=== PATIENT | female | born 1940 | race Caucasian/White ===

== ENCOUNTER 2018-12-16 10:20 | Inpatient (IN) ==
[2018-12-16] MEDS ORDERED: DUONEB (A & A) INH ONE (10:31)
[2018-12-16 11:04] LABS: BASO# 0.02 X1000 (0.0-0.2); BASO% 0.1 % (0.0-0.8); EOS# 0.06 X1000 (0.0-0.7); EOS% 0.4 % (0.0-10.0); HEMATOCRIT 35.7 % (37.0-47.0); HEMOGLOBIN 10.9 g/dL (12.0-16.0); IMM GRAN# 0.07 X1000 (0.0-0.04); IMM GRAN% 0.5 % (0.0-0.5); LYMPH# 0.99 X1000 (1.2-3.4); LYMPH% 6.9 % (20.5-51.1); MCH 31.3 PG (27-31); MCHC 30.5 g/dL (33-37); MCV 102.6 FL (81-99); MONO# 2.35 X1000 (0.11-0.59); MONO% 16.3 % (1.7-9.3); MPV 8.9 FL (7.4-10.4); NEUT# 10.92 X1000 (1.4-6.5); NEUT% 75.8 % (42.2-75.2); PLT 229 X1000 (130-400); RBC 3.48 XMIL (4.2-5.4); RDW 12.5 % (11.5-14.5); WBC 14.41 X1000 (4.8-10.8)
--- NOTE | 2018-12-16 11:17 | Diag Imaging Result Doc PS360 ---
EXAM: CHEST-1 VIEW HISTORY: sob TECHNIQUE: Chest single view COMPARISON: 12/06/2017 FINDINGS: Poor inspiratory effort. There are small patchy infiltrates bilaterally. No cardiomegaly. No pleural effusions identified. IMPRESSION: Small bilateral patchy infiltrates. Follow-up PA and lateral recommended. Electronically signed by Harjinder Meade 12/16/2018 11:14 AM
[2018-12-16 11:27] LABS: ALB/GLOB RATIO 1.2; ALBUMIN 3.8 g/dL (3.5-5.0); CALCIUM 9.1 mg/dL (8.8-10.2); CREATININE 1.3 mg/dL (0.5-0.9); TOTAL BILIRUBIN 0.53 mg/dL (0.20-1.00); TOTAL PROTEIN 6.9 g/dL (6.3-8.3)
[2018-12-16 11:44] LABS: URINE SOURCE CATH
[2018-12-16 11:53] LABS: BILIRUBIN URINE NEGATIVE (NEGATIVE); BLOOD URINE SMALL (NEGATIVE); COLOR YELLOW; GLUCOSE URINE NEGATIVE (NEGATIVE); KETONE URINE NEGATIVE (NEGATIVE); LEUKOCYTES URINE NEGATIVE (NEGATIVE); NITRITE URINE NEGATIVE (NEGATIVE); PH URINE 5.5; PROTEIN URINE 30 mg/dL (NEGATIVE); SP GRAVITY URINE 1.009; TURBIDITY URINE CLEAR (CLEAR); UROBILINOGEN URINE NORMAL (NORMAL)
[2018-12-16 11:55] LABS: UR EPITHELIAL CELLS <10 /HPF (<10); URINE BACTERIA NEGATIVE /HPF; URINE RBC <10 /HPF (<10); URINE WBC <10 /HPF (<10)
[2018-12-16 12:11] LABS: ALLEN TEST NO; BE 16.4 mmoll (-3.0-3.0); BLOOD TYPE ARTERIAL; HCO3-(ACT) 37.6 mmoll (20.0-26.0); METHB 0.7 % (0.0-1.5); O2(CT) 13.6 mL/dL (15.0-23.0); O2HB 92.3 % (95.0-99.0); PO2(98.6) 71 mmHg (60-100); SAMPLE BLOOD; SAO2 94.2 % (95.0-100.0); THB 10.4 g/dL (11.5-17.4); pH(98.6) 7.34 (7.35-7.45)
[2018-12-16 12:13] LABS: MODALITY CANNULA
[2018-12-16 12:16] LABS: PCO2(98.6) 84 mmHg (35-45)
[2018-12-16] MEDS ORDERED: LASIX IV ONE ×2 (13:37→13:39)
--- NOTE | 2018-12-16 13:41 | PROVIDER DOCUMENTATION ---
This chart was entered by Donna Maguire Scribe, acting as scribe for Zurdo Lan MD. HPI-Respiratory General - General Stated Complaint: AMS Time Seen by Provider: 12/16/18 10:23 Source: patient, EMS Allergies/Adverse Reactions: Patient Allergies Allergy/AdvReac Type Severity Reaction Status Date / Time Penicillins Allergy Unknown Unknown Verified 12/05/17 09:16 Home Medications: Home Medication List Medication Instructions Recorded Confirmed Last Taken Type Aspirin 81 mg PO DAILY 11/21/14 12/07/17 10/16/17 History Ezetimibe [Zetia] 10 mg PO HS 11/21/14 12/07/17 10/16/17 History Omeprazole 40 mg PO DAILY@0600 11/21/14 12/07/17 10/16/17 History Propranolol HCl [Inderal LA] 160 mg PO BID 11/21/14 12/07/17 10/16/17 History Fluticasone/Vilanterol [Breo 1 puff INH BID 05/27/16 12/07/17 10/16/17 History Ellipta 100-25 Mcg INH] Gabapentin 300 mg PO TID 09/09/17 12/07/17 10/16/17 History Escitalopram Oxalate [Lexapro] 20 mg PO DAILY #60 tab 09/13/17 12/07/17 10/16/17 Rx Losartan/Hydrochlorothiazide 1 each PO DAILY 10/16/17 12/07/17 10/16/17 History [Losartan-Hctz 100-25 mg Tab] Aripiprazole 5 mg PO DAILY 12/05/17 12/07/17 Unknown History Lorazepam [Ativan] 1 mg PO TID PRN 12/05/17 12/07/17 Unknown History Oxycodone HCl/Acetaminophen 1 tab PO Q8H PRN PRN 12/07/17 12/07/17 Unknown History [Oxycodone-Acetaminophen 5-325] Prednisone 10 mg PO DAILY 12/07/17 12/07/17 Unknown History Acetaminophen [Tylenol] 650 mg PO Q6H PRN PRN tablet 12/13/17 Unknown Rx - History of Present Illness-Resp Nature of Presenting Problem: Patient is a 78 year old female who presents to the ED via EMS with shortness of breath. EMS states [facility] staff stated patient's O2 sat was 60% this morning prior to having a breathing treatment. Patient's O2 sat on EMS's arrival was 96% on 3 L of oxygen. Patient has a history of COPD and uses 3 L of oxygen 08/04. Denies pain. Quality of Pain: reports: none Severity in ED: reports: moderate Onset/Duration: reports: unsure Timing: reports: still present Current Respiratory Medication Therapy: Initiated see nurses note Associated Symptoms: reports: shortness of breath Similar Symptoms Previously?: No Recently seen or treated by another doctor?: No Review of Systems - Adult - REVIEW OF SYSTEMS - ADULT Constitutional: reports: no symptoms reported. denies: chills, fever, fatique Eyes: reports: no symptoms reported Ears, Nose, Mouth & Throat: reports: no symptoms reported Cardiovascular: reports: no symptoms reported. denies: chest pain, irregular heart rate, palpitations Respiratory: reports: shortness of breath. denies: cough, hemoptysis Gastrointestinal: reports: no symptoms reported Genitourinary: reports: no symptoms reported Musculoskeletal: reports: no symptoms reported Integumentary: reports: no symptoms reported Neurological: reports: no symptoms reported Psychiatric: reports: no symptoms reported Endocrine: reports: no symptoms reported Hematologic/Lymphatic: reports: no symptoms reported Allergic/Immunologic: reports: no symptoms reported All Other Systems: Reviewed and Negative Past History - Adult - PAST MEDICAL HISTORY-ADULT Review of Records: reports: Nursing Assessment Review, Medications Reviewed, Social history reviewed & non-contributory. Major Childhood Illnesses: reports: denies history Cardiovascular: reports: A-Fib, HTN Respiratory: reports: COPD Gastrointestinal: reports: denies history Obstetrical/Gynecological: reports: denies history Genitourinary: reports: denies history Musculoskeletal: reports: chronic pain Neurological: reports: denies history Psychiatric: reports: depression, psychiatric problems Endocrine/Immune: reports: denies history Other Conditions: reports: denies history - PRIOR SURGERIES/PROCEDURES Surgical/Procedure History: reports: appendectomy, cholecystectomy, hernia repair - PRIOR HOSPITALIZATIONS Prior Hospitalizations: reports: none - IMMUNIZATION STATUS Childhood Immunizations: See Nurse Assessment Flu Vaccine: See Nurse Assessment - FAMILY HISTORY Family History: reviewed, not pertinent - SOCIAL HISTORY Smoking: denies Substance Use: denies Living Situation: care facility (SNF) Physical Exam-General - PHYSICAL EXAM-ADULT Initial Vital Signs Reviewed: Yes - CONSTITUTIONAL General Appearance: alert, mild distress, slow to respond. negative: obtunded - HEAD, EARS, NOSE, MOUTH & THROAT HENMT: pharynx normal, hearing deficit, other (dry mucous membranes) - RESPIRATORY Respiratory: chest non-tender, respiratory distress (mild), decreased breath so unds (bilateral), rhonchi (bilateral), increased rate. negative: accessory muscle use - CARDIOVASCULAR Cardiovascular: normal peripheral pulses, regular rate, rhythm. negative: tachycardia, systolic murmur - GASTROINTESTINAL (ABDOMEN) Abdominal Exam: normal bowel sounds, non tender, soft. negative: guarding, rebound - SKIN Integumentary: normal color, normal turgor, warm/dry. negative: cyanosis, erythema, jaundice - PSYCHIATRIC Psych/Mental Status: other (slow to respond) Progress - PLAN OF CARE/RESULTS Progress/Plan/Lab Results: Vital Signs - 8 hr 12/16/18 10:37 12/16/18 10:41 12/16/18 11:18 Temperature 97.7 F Pulse Rate 84 84 Respiratory Rate 30 H 22 Blood Pressure 172/93 172/93 O2 Sat by Pulse Oximetry 89 L 96 96 12/16/18 11:32 12/16/18 11:40 12/16/18 11:50 Temperature Pulse Rate Respiratory Rate Blood Pressure O2 Sat by Pulse Oximetry 73 L 93 L 92 L 12/16/18 12:00 12/16/18 12:10 12/16/18 12:20 Temperature Pulse Rate Respiratory Rate Blood Pressure O2 Sat by Pulse Oximetry 92 L 92 L 93 L 12/16/18 12:30 12/16/18 12:40 12/16/18 12:41 Temperature Pulse Rate Respiratory Rate Blood Pressure 105/63 O2 Sat by Pulse Oximetry 97 98 95 12/16/18 12:50 Temperature Pulse Rate Respiratory Rate Blood Pressure O2 Sat by Pulse Oximetry 96 Laboratory Results - last 24 hr 12/16/18 12/16/18 12/16/18 10:55 10:55 10:55 WBC 14.41 H RBC 3.48 L Hgb 10.9 L Hct 35.7 L MCV 102.6 H MCH 31.3 H MCHC 30.5 L RDW Std Deviation 12.5 Plt Count 229 MPV 8.9 Immature Gran % (Auto) 0.5 Neut % (Auto) 75.8 H Lymph % (Auto) 6.9 L Murray % (Auto) 16.3 H Eos % (Auto) 0.4 Baso % (Auto) 0.1 Immature Gran # (Auto) 0.07 H Neut # (Auto) 10.92 H Lymph # (Auto) 0.99 L Murray # (Auto) 2.35 H Eos # (Auto) 0.06 Baso # (Auto) 0.02 Specimen Type Sample Site pH pCO2 pO2 HCO3 Base Excess Oxyhemoglobin ABG O2 Sat (Calculated) ABG O2 Saturation ABG Carboxyhemoglobin ABG Methemoglobin Benjamin Test A-a O2 Difference Total Hemoglobin Lactate Liter Flow Blood Gas Modality FiO2 % Sodium 142 Potassium 4.0 Chloride 92 L Carbon Dioxide 38 H Anion Gap 12 BUN 44 H Creatinine 1.3 H Estimated GFR/1.73 m2 40 BUN/Creatinine Ratio 34 Glucose 157 H Calculated Osmolality 298 Calcium 9.1 Total Bilirubin 0.53 AST 37 H ALT 36 Alkaline Phosphatase 60 Troponin T [id number] Pept 1224 H Total Protein 6.9 Albumin 3.8 Globulin 3.1 Albumin/Globulin Ratio 1.2 Plasma Lactate Urine Source Urine Color Urine Turbidity Urine pH Ur Specific [place] Urine Protein Ur Glucose (Stick) Ur Ketones (Stick) Urine Blood Urine Nitrite Urine Bilirubin Urobilinogen Dipstick Urine Leukocytes Urine WBC (Auto) Urine RBC (Auto) U Epithel Cells (Auto) Urine Bacteria (Auto) 12/16/18 12/16/18 12/16/18 10:55 10:55 11:30 WBC RBC Hgb Hct MCV MCH MCHC RDW Std Deviation Plt Count MPV Immature Gran % (Auto) Neut % (Auto) Lymph % (Auto) Murray % (Auto) Eos % (Auto) Baso % (Auto) Immature Gran # (Auto) Neut # (Auto) Lymph # (Auto) Murray # (Auto) Eos # (Auto) Baso # (Auto) Specimen Type Sample Site pH pCO2 pO2 HCO3 Base Excess Oxyhemoglobin ABG O2 Sat (Calculated) ABG O2 Saturation ABG Carboxyhemoglobin ABG Methemoglobin Benjamin Test A-a O2 Difference Total Hemoglobin Lactate Liter Flow Blood Gas Modality FiO2 % Sodium Potassium Chloride Carbon Dioxide Anion Gap BUN Creatinine Estimated GFR/1.73 m2 BUN/Creatinine Ratio Glucose Calculated Osmolality Calcium Total Bilirubin AST ALT Alkaline Phosphatase Troponin T < 0.010 [id number] Pept Total Protein Albumin Globulin Albumin/Globulin Ratio Plasma Lactate 1.1 Urine Source CATH Urine Color YELLOW Urine Turbidity CLEAR Urine pH 5.5 Ur Specific [place] 1.009 Urine Protein 30 A Ur Glucose (Stick) NEGATIVE Ur Ketones (Stick) NEGATIVE Urine Blood SMALL A Urine Nitrite NEGATIVE Urine Bilirubin NEGATIVE Urobilinogen Dipstick NORMAL Urine Leukocytes NEGATIVE Urine WBC (Auto) <10 Urine RBC (Auto) <10 U Epithel Cells (Auto) <10 Urine Bacteria (Auto) NEGATIVE 12/16/18 12:05 WBC RBC Hgb Hct MCV MCH MCHC RDW Std Deviation Plt Count MPV Immature Gran % (Auto) Neut % (Auto) Lymph % (Auto) Murray % (Auto) Eos % (Auto) Baso % (Auto) Immature Gran # (Auto) Neut # (Auto) Lymph # (Auto) Murray # (Auto) Eos # (Auto) Baso # (Auto) Specimen Type ARTERIAL Sample Site R BRACHIAL pH 7.34 L pCO2 84 H* pO2 71 HCO3 37.6 H Base Excess 16.4 H Oxyhemoglobin 92.3 L ABG O2 Sat (Calculated) 13.6 L ABG O2 Saturation 94.2 L ABG Carboxyhemoglobin 1.30 ABG Methemoglobin 0.7 Benjamin Test NO A-a O2 Difference 52.0 Total Hemoglobin 10.4 L Lactate 0.90 Liter Flow 3.0 Blood Gas Modality CANNULA FiO2 % 32.0 Sodium Potassium Chloride Carbon Dioxide Anion Gap BUN Creatinine Estimated GFR/1.73 m2 BUN/Creatinine Ratio Glucose Calculated Osmolality Calcium Total Bilirubin AST ALT Alkaline Phosphatase Troponin T [id number]-Pnulszepgqk Pept Total Protein Albumin Globulin Albumin/Globulin Ratio Plasma Lactate Urine Source Urine Color Urine Turbidity Urine pH Ur Specific [place] Urine Protein Ur Glucose (Stick) Ur Ketones (Stick) Urine Blood Urine Nitrite Urine Bilirubin Urobilinogen Dipstick Urine Leukocytes Urine WBC (Auto) Urine RBC (Auto) U Epithel Cells (Auto) Urine Bacteria (Auto) Orders Category Date Time Status CHEST-1 VIEW [RAD] Stat Exams 12/16/18 10:31 Completed ABG [RESP] Stat Lab 12/16/18 11:54 Stop Req CBC WITH DIFF [HEME] Stat Lab 12/16/18 10:55 Ordered COMPREHENSIVE METABOLIC PANEL [CHEM] Stat Lab 12/16/18 10:55 Ordered LACTATE, PLASMA [CHEM] Stat Lab 12/16/18 12:00 Ordered PRO B-NATRIURETIC PEPTIDE Stat Lab 12/16/18 10:55 Ordered TROPONIN T Stat Lab 12/16/18 10:55 Ordered URINALYSIS [URINALYSIS] Stat Lab 12/16/18 11:30 Ordered Albuterol 2.5MG/Ipratrop 0.5MG [Duoneb (A & A)] Med 12/16/18 10:31 Discontinue d 3 ml INH NOW ONE Furosemide [Lasix] Med 12/16/18 13:39 Discontinued 20 mg IV NOW ONE Furosemide [Lasix] Med 12/16/18 13:37 Discontinued 40 mg IV NOW ONE Aerosol Treatments Routine Oth 12/16/18 10:31 Completed Aerosol Treatments Stat Oth 12/16/18 10:31 Completed EKG [EKG] Stat Ther 12/16/18 10:24 Ordered Result Diagrams: 12/16/18 10:55 12/16/18 10:55 - XRAY 1 XRAY Study: Chest Impression: See EMR Report ( EXAM: CHEST-1 VIEW HISTORY: sob TECHNIQUE: Chest single view COMPARISON: 12/06/2017 FINDINGS: Poor inspiratory effort. There are small patchy infiltrates bilaterally. No cardiomegaly. No pleural effusions identified. IMPRESSION: Small bilateral patchy infiltrates. Follow- up PA and lateral recommended. Electronically signed by Harjinder Meade 12/16/2018 11:14 AM 12/16/18 111 Interpreting Physician: Harjinder Meade MD Dictated Date/Time: 12/16/18 1114 cc: Zurdo Lan MD; Gustavo Bull MD) - CONSULTS/PCP/HOSPITALIST Notification #1 *Consult/PCP/Hospitalist*: CARLY Bernstein for Hospitalist Time Discussed: 13:38 (Dr. Laurent accepted admit) Reason/Comments: Dr. Lan consulted with Day about patient. Consult Disposition: Admit Departure - Departure Date of Disposition Decision: 12/16/18 Time of Disposition Decision: 13:38 DIAGNOSIS: CHF (congestive heart failure), COPD exacerbation, Hypoxemia Disposition: ADMITTED INPATIENT 09 Certified Medical Emergency: Emergent Condition: Fair Referrals and Follow-Ups: Gustavo Bull MD [Primary Care Provider] - - Critical Care Note This patient required my direct & personal management of CC.: Yes Total Time (mins): 32 Critical Care Statement: This patient required my direct personal management to treat or rule out processes, the absence of which, could potentiallly result in sudden, clinically significant life or limb threatening deterioration. Attestation - Physician/ MONICA Attestation Patient care was provided by Advanced Practice Provider:: No The physician spent face to face time with patient:: Yes Advanced Practice Provider documentation review:: Supervising physician onsite a nd consulted in the evaluation and care of this patient. The physician did have a face to face encounter with the patient. This chart was documented by the indicated scribe, (Donna Maguire, Miller) and accurately reflects the services I performed and decisions made by me, Zurdo Lan MD, as attested by the provider's signature.
--- NOTE | 2018-12-16 15:36 | Diag Imaging Result Doc PS360 ---
CT THORAX W/O CONTRAST - 12/16/2018 INDICATION: SOB/PNA COMPARISON: 11/06/2017 FINDINGS: There is no adenopathy. There is severe COPD. There is some mild infiltrate in both lung bases notably the left lower lobe. The lingula and middle lobe are also involved. There is moderate bronchitis. Heart size is normal with no pericardial effusion. There are moderate degenerative changes of the spine. No acute or suspicious bony lesion. IMPRESSION: Bilateral multilobar pneumonia. Severe COPD with chronic bronchitis. This exam was performed using automated exposure control, adjustment of mA or kV according to patient size, and/or use of iterative reconstruction technique Electronically signed by Ad Bhatt 12/16/2018 3:33 PM
[2018-12-16] MEDS ORDERED: VANCOMYCIN IV PER PHARMACY MISC SCH (15:42)
[2018-12-16] MEDS ORDERED: SOLU-MEDROL IV SCH (15:42)
[2018-12-16] MEDS ORDERED: ZOFRAN IV PRN (15:42)
[2018-12-16] MEDS ORDERED: DUONEB (A & A) INH PRN (15:42)
[2018-12-16] MEDS: DUONEB (A & A) INH SCH ×3 (16:07→23:10)
[2018-12-16] MEDS ORDERED: VANCOMYCIN 1,600 MG in NS 500 ML IV ONE (17:00)
[2018-12-16] MEDS: LEVAQUIN 500 MG/D5W 500 MG/100 ML IVPB IV SCH (17:10)
[2018-12-16 17:37] LABS: ALLEN TEST YES; BE 19.5 mmoll (-3.0-3.0); BLOOD TYPE ARTERIAL; O2(CT) 14.3 mL/dL (15.0-23.0); O2HB 92.3 % (95.0-99.0); PO2(98.6) 65 mmHg (60-100); SAMPLE BLOOD; SAO2 94.2 % (95.0-100.0); SRATE 16 BPM; pH(98.6) 7.42 (7.35-7.45)
[2018-12-16 17:39] LABS: MODALITY BI PAP; PCO2(98.6) 73 mmHg (35-45)
--- NOTE | 2018-12-16 18:37 | HISTORY AND PHYSICAL ---
PRIMARY CARE PROVIDER: None. Patient is from [facility]. CHIEF COMPLAINT: Per EMS records, altered mental status, level II per [facility]. HISTORY OF PRESENT ILLNESS: Ms. Nuñez is a 78-year-old female who carries a past medical history of COPD, hypertension, adult failure to thrive, GERD, who was brought to the ED by EMS for altered mental status. Per [facility] reports, O2 sats were in the 60s. EMS report they were 96% on nasal cannula. The patient stated she felt short of breath and felt like she was going to . Workup in the ED revealed a CO2 of 84 and an elevated proBNP at 1224. Urinalysis was negative. She was given a Rocephin shot yesterday at the [facility] for questionable urinary tract infection. Her urinalysis is unremarkable here. Chest x-ray revealed small bilateral patchy infiltrates. Recommended a followup PA and lateral. We will check a chest CT. Start her on broad-spectrum antibiotics. Continue on bronchodilators. Clinically, she does sound wet. We will give her a dose of Lasix and continue low-dose Lasix and place her on CIC. Recheck an ABG in the a.m. PAST MEDICAL HISTORY: 1. COPD. 2. Hypertension. 3. Adult failure to thrive. 4. GERD. PAST SURGICAL HISTORY: 1. Cholecystectomy. 2. Appendectomy. 3. Abdominal hernia repair. SOCIAL HISTORY: She is from [facility]. Denied alcohol, tobacco or illicit drug use. ALLERGIES: Penicillin. MEDICATIONS: Home medications are being compiled. REVIEW OF SYSTEMS: The patient could only state that she was short of breath. She does somewhat answer questions; however, she will not answer all questions. Unsure if this is her baseline mental status or anything to do with her elevated CO2. PHYSICAL EXAMINATION: VITAL SIGNS: Temperature is 97.7, heart rate 84, respirations 22, blood pressure is 105/63, O2 is 95% on nasal cannula. GENERAL: Ms. Nuñez is a 78-year-old female who is lying on the stretcher in the dark: She arouse to physical and verbal stimulus. She did know her name. She knew the day, the month and the day she was born, but not the date. She could not tell me the year. She could not tell me where she was. She could not tell me what [facility] from. She did tell me her was and that she has 7 children, but they do not live in the area, they lived in [place], and the rest of her family are . HEENT: Scleroderma bilaterally. Head is atraumatic, normocephalic. PEAL. NECK: Supple. Trachea midline. CARDIOVASCULAR: S1, S2 appreciated. Regular rate and rhythm. PULMONARY: Scattered rhonchi, expiratory wheezes, rales in the bases heard more on the left than right. The patient complained of spitting up yellow sputum frequently. GASTROINTESTINAL: Soft, nontender, nondistended. Positive bowel sounds 4 quadrants. Lower extremities are negative for edema. No clubbing, no cyanosis. NEUROLOGIC: The patient was asleep in the dark. She did not awake with turning on the light. She did, however, come to with physical and verbal stimuli. She answered some questions appropriately. Some question she would not answer, even though repeated multiple times. She knows her name, the month and the day she was born, but not the year. She does not know the current year. She could not tell me what facility she was at or what facility she came from. She does follow some simple commands and moved all extremities appropriately. DIAGNOSTIC DATA: Chest x-ray revealed small bilateral patchy infiltrates. Recommended a followup PA and lateral. CT chest pending. White count 14, hemoglobin and hematocrit 10 and 35, platelet count is 229,000. ABG: pH 7.34, pCO2 84, bicarb 37, base excess 16, O2 saturation is 94% on 3 L nasal cannula. Sodium 142, potassium 4.0, carbon dioxide 38, BUN 44, creatinine 1.3, blood glucose 157, AST 37. ProBNP is 1224, plasma lactate 1.1. Urinalysis was negative. ASSESSMENT AND PLAN: 1. Chronic obstructive pulmonary disease exacerbation with probable pneumonia. Will treat the patient with broad-spectrum antibiotics since she came from a [place] [facility], and be hospital acquired. She was recently being treated for UTI as well. She did get a shot of Rocephin yesterday. She had an elevated white count. Her plasma lactate was normal. Will continue bronchodilators, aggressive pulmonary toilet. We will continue Solu-Medrol for expiratory wheezes. 2. Hypercapnic/Hypoxemic respiratory failure will place on BIPAP recheck ABG's 2. Probable pneumonia. Will check a chest CT to rule out, continue on broad- spectrum antibiotics and change as appropriate. Turn, cough, deep breathe. Consult Physical therapy. 3. Question of altered mental status, possibly metabolic secondary to her high CO2. I do not know the patient's baseline mentation. There was no family at the bedside. She reports her is as well as most of her family. She states she does have 7 children, but they all live away. 4. Hypertension. We will continue home medications when appropriate. 5. Adult failure to thrive. We will have nursing staff check a swallow study and start appropriate diet as well as supplementation. 6. Gastroesophageal reflux disease. We will continue with PPI. 7. Further recommendation to follow physician evaluation, laboratory and diagnostic data. Dictated by CARLY Marcelo for Nikolay Severino MD cc: Nikolay Severino MD MTDD
[2018-12-16] MEDS: DEPAKOTE ER PO SCH (23:15)
[2018-12-16] MEDS: MERREM 1 GM in NS 50 ML IV SCH ×2 (23:15→23:23)
[2018-12-16] MEDS: ATIVAN PO SCH (23:22)
[2018-12-16] MEDS: LASIX IV SCH (23:22)
[2018-12-16] MEDS: MELATONIN PO SCH (23:23)
[2018-12-17] MEDS: DEPAKOTE ER PO SCH ×2 (00:22→20:46)
[2018-12-17] MEDS: DUONEB (A & A) INH SCH ×5 (03:20→19:24)
[2018-12-17] MEDS: MERREM 1 GM in NS 50 ML IV SCH ×3 (04:56→20:45)
[2018-12-17] MEDS: PRILOSEC PO SCH (05:09)
[2018-12-17] MEDS: SOLU-MEDROL IV SCH ×2 (05:09→18:55)
[2018-12-17 05:22] LABS: BASO# 0.01 X1000 (0.0-0.2); BASO% 0.1 % (0.0-0.8); HEMATOCRIT 33.5 % (37.0-47.0); HEMOGLOBIN 10.3 g/dL (12.0-16.0); IMM GRAN# 0.03 X1000 (0.0-0.04); IMM GRAN% 0.3 % (0.0-0.5); LYMPH# 0.27 X1000 (1.2-3.4); LYMPH% 2.5 % (20.5-51.1); MCH 30.8 PG (27-31); MCHC 30.7 g/dL (33-37); MCV 100.3 FL (81-99); MONO# 0.42 X1000 (0.11-0.59); MONO% 3.9 % (1.7-9.3); MPV 9.3 FL (7.4-10.4); NEUT# 9.97 X1000 (1.4-6.5); NEUT% 93.2 % (42.2-75.2); PLT 192 X1000 (130-400); RBC 3.34 XMIL (4.2-5.4); RDW 12.3 % (11.5-14.5)
[2018-12-17 05:52] LABS: ALB/GLOB RATIO 1.2; ALBUMIN 3.5 g/dL (3.5-5.0); CALCIUM 9.5 mg/dL (8.8-10.2); CREATININE 1.2 mg/dL (0.5-0.9); POTASSIUM 3.8 mmol/L (3.5-5.1); TOTAL BILIRUBIN 0.6 mg/dL (0.20-1.00); TOTAL PROTEIN 6.4 g/dL (6.3-8.3)
[2018-12-17 05:57] LABS: ALLEN TEST YES; BE 23.7 mmoll (-3.0-3.0); BLOOD TYPE ARTERIAL; HCO3-(ACT) 43.4 mmoll (20.0-26.0); METHB 0.7 % (0.0-1.5); O2(CT) 12.1 mL/dL (15.0-23.0); O2HB 93.3 % (95.0-99.0); PO2(98.6) 68 mmHg (60-100); SAMPLE BLOOD; SAO2 95.8 % (95.0-100.0); THB 9.2 g/dL (11.5-17.4); pH(98.6) 7.53 (7.35-7.45)
[2018-12-17 05:59] LABS: MODALITY CANNULA; PCO2(98.6) 59 mmHg (35-45)
[2018-12-17 06:43] LABS: BANDS 4 % (0-1); LYMPHS 2 % (21-51); SEGS 92 % (42-75)
[2018-12-17] MEDS: LEXAPRO PO SCH (09:24)
[2018-12-17] MEDS: ATIVAN PO SCH (09:25)
[2018-12-17] MEDS: ASPIRIN PO SCH (09:25)
[2018-12-17] MEDS: NEURONTIN PO SCH ×3 (09:25→20:46)
[2018-12-17] MEDS: COLACE PO SCH (09:25)
[2018-12-17] MEDS: MILK OF MAGNESIA PO SCH (09:25)
[2018-12-17] MEDS: LASIX IV SCH ×2 (09:25→20:46)
[2018-12-17] MEDS: MUCOMYST 20% INH SCH ×2 (09:58→19:24)
--- NOTE | 2018-12-17 10:25 | PROGRESS NOTE ---
DATE: 12/17/2018 SUBJECTIVE: This patient is still confused, but she is following commands on and off. I do not have any family members at the bedside, I am not quite sure if this patient also has dementia. She is still having some wheezing, but she is breathing better, I will continue with breathing treatment, steroids, and antibiotics. CT scan of the chest showed bilateral multilobar pneumonia and severe COPD with chronic bronchitis. Vital signs are more stable today. Probably, we need to use the BiPAP machine during the night. OBJECTIVE: Vital Signs: Temperature 98.3 degrees, pulse 84, respiratory rate 19, blood pressure 140/56, and oxygen saturation 97% on 5 L of nasal cannula. HEENT: Head normocephalic. No trauma. PERRLA. Neck: Supple. No JVD. Central trachea. Chest: Coarse breath sounds bilaterally with some rhonchi bilaterally as well, expiratory wheezing, decreased breath sounds mostly at the bases with prolonged expiratory phase. Abdomen: Soft, nontender, and nondistended. No hepatosplenomegaly. Extremities: Trace edema. No clubbing. No cyanosis. Neurological: The patient is disoriented, but alert. She is following commands on and off. She is confused. LABORATORY: WBC 10.7, hemoglobin 10.3, hematocrit 33.5, and platelets 192,000. A pH 7.53, pCO2 59, and PO2 68. Sodium 147, potassium 3.8, chloride 92, bicarbonate 40, BUN 38, creatinine 1.2, glucose 173, calcium 9.5, AST 22, ALT 25, and alkaline phosphatase 55. ASSESSMENT AND PLAN: 1. Acute hypercapnic probably on chronic respiratory failure, secondary to COPD and multilobar pneumonia. This patient has been placed on broad-spectrum antibiotics since she came from a retirement. Apparently, she has been recently treated for UTI as well. She has an elevated white blood cell upon admission, but today is normal. Plasma lactate is normal as well. We will continue with bronchodilators and aggressive bronchodilators, aggressive pulmonary toilet and steroids as well. 2. Multilobar pneumonia. CT scan showed bilateral infiltrates in multiple places. This patient is allergic to penicillin so we will put this patient on meropenem and levofloxacin. We will continue with the same management. 3. Sepsis. This patient upon admission was tachypneic, elevated white blood cells, and a source of infection. I think this is getting better. Continue with antibiotics. 4. Hypertension. Continue with home medications when appropriate. 5. Adult failure to thrive, we will continue to monitor for now. 6. Gastroesophageal reflux disease. Continue with PPIs. 7. This patient is encephalopathic, probably related to her high CO2 and/or it could be related also to the infectious process. We will monitor. No big changes compared with yesterday. She is still confused. cc: Nikolay Severino MD
[2018-12-17] MEDS: LEVAQUIN 500 MG/D5W 500 MG/100 ML IVPB IV SCH (15:52)
--- NOTE | 2018-12-17 17:06 | EKG Report ---
Test Performed on : 12/17/2018 4:52:01 PM Test Reason : Rhythm change Blood Pressure : / mmHG Vent. Rate : 087 BPM Atrial Rate : 090 BPM P-R Int : 170 ms QRS Dur : 076 ms QT Int : 380 ms P-R-T Axes : 054 007 038 degrees QTc Int : 457 ms Normal sinus rhythm. Normal ECG When compared with ECG of 08-DEC-2017 01:04, Previous ECG has undetermined rhythm, needs review Questionable change in QRS duration Confirmed by Kenna WALLACE, Willem ([id number]) on 12/18/2018 8:52:36 AM
[2018-12-17 17:11] LABS: ALLEN TEST YES; BLOOD TYPE ARTERIAL; HCO3-(ACT) 44.4 mmoll (20.0-26.0); METHB 0.7 % (0.0-1.5); O2(CT) 13.6 mL/dL (15.0-23.0); O2HB 95.9 % (95.0-99.0); PO2(98.6) 95 mmHg (60-100); SAMPLE BLOOD; SAO2 97.3 % (95.0-100.0); pH(98.6) 7.48 (7.35-7.45)
[2018-12-17 17:14] LABS: MODALITY CANNULA; PCO2(98.6) 70 mmHg (35-45)
--- NOTE | 2018-12-17 17:37 | Diag Imaging Result Doc PS360 ---
EXAM: CT HEAD W/O CONTRAST 12/17/2018 HISTORY: Lethargy TECHNIQUE: This exam was performed using automated exposure control, adjustment of mA or kV according to patient size, and/or use of iterative reconstruction technique. COMMENT: There is no evidence of mass effect, bleed, or abnormal extra-axial fluid collection. Compared to the previous study of 12/08/2013 there has been no significant change in the appearance of the brain. The paranasal sinuses are clear. The calvarium is intact if somewhat hyperostotic. IMPRESSION: Stable CT of the head. Electronically signed by Sunny Shaw 12/17/2018 5:34 PM
[2018-12-17] MEDS: MELATONIN PO SCH (20:45)
--- NOTE | 2018-12-17 20:47 | ECHO REPORT ---
ORDER DATE: 12/16/2018 INDICATION: A 78-year-old female with cor pulmonale and COPD. M-MODE MEASUREMENTS: Left ventricle end diastole: 4.6. Left ventricle end systole: 3.2. Posterior wall: 1.0. Interventricular septum: 1.0. Left atrium: 4.8. Aortic root: 3.3. SUMMARY OF 2-DIMENSIONAL IMAGIN. Left ventricular systolic function is excellent. Ejection fraction is 68%. No wall motion abnormality noted. The chamber is relatively small in size. 2. The aortic valve looks normal. Color flow mapping unremarkable. 3. The mitral valve looks normal. Color flow mapping unremarkable. 4. The pulsed wave Doppler of mitral inflow shows mild reversal of the E and the A ratio. Ratio is 0.8. 5. Tissue Doppler of septal and lateral mitral annulus averages 6 and a half cm. 6. There is no diastolic dysfunction. 7. The tricuspid valve was suboptimally visualized. The study was difficult. We could not get a good jet of tricuspid regurgitation to calculate pulmonary pressure. 8. The pulmonic valve was grossly unremarkable. 9. The right-sided chambers do not appear to be particularly dilated. Very small, probably physiologic, pericardial effusion appears to be present. Clinical correlation recommended. cc: Bruce Allen MD
[2018-12-18] MEDS: DUONEB (A & A) INH SCH ×7 (01:15→23:22)
[2018-12-18 05:07] LABS: ALLEN TEST YES; BE 23.5 mmoll (-3.0-3.0); BLOOD TYPE ARTERIAL; HCO3-(ACT) 43.2 mmoll (20.0-26.0); METHB 0.2 % (0.0-1.5); O2HB 96.8 % (95.0-99.0); PO2(98.6) 111 mmHg (60-100); SAMPLE BLOOD; THB 13.1 g/dL (11.5-17.4)
[2018-12-18 05:09] LABS: PCO2(98.6) 52 mmHg (35-45); pH(98.6) 7.58 (7.35-7.45)
[2018-12-18 05:10] LABS: MODALITY BI PAP
[2018-12-18] MEDS: PRILOSEC PO SCH (05:43)
[2018-12-18] MEDS: MERREM 1 GM in NS 50 ML IV SCH ×3 (05:43→21:14)
[2018-12-18] MEDS: SOLU-MEDROL IV SCH ×2 (05:43→17:36)
[2018-12-18 06:17] LABS: BASO# 0.01 X1000 (0.0-0.2); BASO% 0.1 % (0.0-0.8); EOS# 0.01 X1000 (0.0-0.7); EOS% 0.1 % (0.0-10.0); HEMATOCRIT 32.3 % (37.0-47.0); HEMOGLOBIN 9.8 g/dL (12.0-16.0); IMM GRAN# 0.05 X1000 (0.0-0.04); IMM GRAN% 0.3 % (0.0-0.5); LYMPH# 0.36 X1000 (1.2-3.4); LYMPH% 2.3 % (20.5-51.1); MCH 30.3 PG (27-31); MCHC 30.3 g/dL (33-37); MONO# 0.81 X1000 (0.11-0.59); MONO% 5.3 % (1.7-9.3); MPV 9.3 FL (7.4-10.4); NEUT# 14.18 X1000 (1.4-6.5); NEUT% 91.9 % (42.2-75.2); PLT 201 X1000 (130-400); RBC 3.23 XMIL (4.2-5.4); RDW 12.2 % (11.5-14.5); WBC 15.42 X1000 (4.8-10.8)
[2018-12-18 06:28] LABS: ALBUMIN 3.1 g/dL (3.5-5.0); CALCIUM 9.2 mg/dL (8.8-10.2); CREATININE 1.4 mg/dL (0.5-0.9); POTASSIUM 3.2 mmol/L (3.5-5.1); TOTAL BILIRUBIN 0.45 mg/dL (0.20-1.00); TOTAL PROTEIN 6.3 g/dL (6.3-8.3)
[2018-12-18 06:35] LABS: HEMOGLOBIN A1C 5.6 % (4.8-6.0)
--- NOTE | 2018-12-18 07:24 | Diag Imaging Result Doc PS360 ---
EXAM: CHEST-PORTABLE 12/18/2018 HISTORY: dyspnea TECHNIQUE: AP portable at 0548 COMMENT: There is ill-defined opacity over the left base which has improved since the previous study of 12/16/2018, and the inspiration is also better. IMPRESSION: Improving left lower lobe pneumonia. Electronically signed by Sunny Shaw 12/18/2018 7:22 AM
[2018-12-18] MEDS: MUCOMYST 20% INH SCH ×2 (07:58→19:05)
[2018-12-18] MEDS ORDERED: KLOR-CON PO ONE (08:00)
[2018-12-18] MEDS: ASPIRIN PO SCH (08:43)
[2018-12-18] MEDS: NEURONTIN PO SCH ×3 (08:43→21:14)
[2018-12-18] MEDS: COLACE PO SCH (08:43)
[2018-12-18] MEDS: LEXAPRO PO SCH (08:43)
[2018-12-18] MEDS: D5W 1,000 ML IV SCH ×2 (08:44→22:55)
[2018-12-18] MEDS: MILK OF MAGNESIA PO SCH (08:44)
--- NOTE | 2018-12-18 09:02 | PROGRESS NOTE ---
DATE: 12/18/2018 SUBJECTIVE: This patient seems to be more alert and more oriented today. She is oriented to time. She knows she is in the hospital, but she does not remember the name. She is able to say her name, follow commands, and date of , but she does not remember what happened or how she ended up here in the hospital. OBJECTIVE: Vital Signs: Temperature 99.2 degrees, pulse 81, respiratory rate 20, blood pressure 143/52, and oxygen saturation 92 on 5 L of nasal cannula. HEENT: Head normocephalic. No trauma. PERRLA. Neck: Supple. No JVD. No masses. Central trachea. Chest: Coarse breath sounds bilaterally with rhonchi bilaterally as well and end expiratory wheezing. Decreased breath sounds mostly at the bases. Abdomen: Soft, nontender, and nondistended. No hepatosplenomegaly. Extremities: Trace edema. No clubbing. No cyanosis. Neurological: The patient is alert. She is oriented to person. She knows she is in the hospital, and able to say her date of and follow commands. She is now oriented to time, she seems to be more oriented compared with yesterday. She moves all 4 extremities. LABORATORY: WBC 15.4, hemoglobin 9.8, hematocrit 32.3, and platelet 201,000. Sodium 148, potassium 3.2, chloride 91, bicarbonate 40, BUN 42, creatinine 1.4, glucose 233, calcium 9.2, and albumin 3.1. ASSESSMENT AND PLAN: 1. Acute on chronic hypercapnic respiratory failure, likely secondary to COPD exacerbation and multilobar pneumonia. Continue with broad-spectrum antibiotics. Apparently also, she has been treated recently for UTI as well. We will continue with the same management. I do believe she is getting a little bit better, increased WBC could be related to steroids. 2. Multilobar pneumonia. CT scan showed bilateral infiltrates in multiple places. This patient is allergic to penicillin so we put this patient on meropenem and levofloxacin. We will continue with the same management. 3. Sepsis. Upon admission, this patient was tachypneic with elevated white blood cells. We do have a source of infection which I believe is getting better. 4. Likely metabolic encephalopathy, due to the infectious process but also this patient has been on medications that can potentially increase her problem. She seems to be doing better today. 5. Hypertension. Continue with same medication. 6. Adult failure to thrive. We will continue to monitor for now. 7. Gastroesophageal reflux disease. Continue with proton pump inhibitors. 8. I believe she is getting a little bit better, but she is still having respiratory failure, I will place a consult for Pulmonary Department. I will monitor this patient closely. CT scan of the head is negative. I will start this patient on a full liquid diet. cc: Nikolay Severino MD
[2018-12-18] MEDS: LEVAQUIN 500 MG/D5W 500 MG/100 ML IVPB IV SCH (14:41)
[2018-12-18] MEDS ORDERED: VANCOMYCIN 1,300 MG in NS 250 ML IV SCH (17:00)
[2018-12-18] MEDS: MELATONIN PO SCH (21:14)
[2018-12-18] MEDS: DEPAKOTE ER PO SCH (21:14)
--- NOTE | 2018-12-18 22:22 | CONSULTATION ---
DATE OF CONSULTATION: 12/18/2018 REQUESTING PHYSICIAN: Dr. Nikolay Severino. REASON FOR CONSULTATION: Respiratory failure, pneumonia. HISTORY OF PRESENT ILLNESS: This is a 78-year-old female with a medical history of COPD, hypertension, adult failure to thrive, gastroesophageal reflux disease, anxiety, bipolar disorder, and chronic pain. She presented to the ER on 12/16/2018 from [facility] with worsening shortness of breath and hypoxemia. Initial workup in the ER revealed COPD exacerbation, probable pneumonia, and questionable altered mental status. She has been admitted to the [facility] for further evaluation and management. At the time of my examination, patient is lying comfortably in bed on a bed berrios. She states she has no idea what was going on before she was sent here. She reports that she has been coughing quite a bit, but no memory if she coughs up anything. She has wheezing, pedal edema, and dizziness. She reports she is very easy to fall and she feels her heart racing all the time. She usually walks with a walker. She denies chest pain, nausea, poor appetite, or urination discomfort. PAST MEDICAL HISTORY: 1. COPD, on Breo inhaler and continuous oxygen at 2 L. 2. Hypertension. 3. Adult failure to thrive. 4. Gastroesophageal reflux disease. 5. Anxiety. 6. Bipolar disorder. 7. Chronic pain, on narcotics. 8. Cholecystectomy. 9. Appendectomy. 10. Abdominal hernia repair. SOCIAL HISTORY: The patient lives at [facility]. She is a former heavy smoker and quit a long time ago. She has no history of alcohol or illicit drug use. FAMILY HISTORY: Positive for heart disease and dementia. ALLERGIES: Penicillins. REVIEW OF SYSTEMS: A 10-point review of systems was conducted and the pertinent is listed within the HPI, otherwise noncontributory. PHYSICAL EXAMINATION: Vital Signs: Temperature 99.2, blood pressure 143/52, pulse 80, respiratory rate 20, oxygen saturation 95% on nasal cannula. General: Chronically ill-appearing malnourished, in no acute distress. HEENT: Atraumatic. Trachea midline. Mucosa pink and slightly dry. Respiratory: Even and unlabored, symmetrical excursion. Auscultation reveals diminished breathing sounds bibasilarly and mild expiratory wheezing bilaterally. Cardiovascular: Regular rate and rhythm. Gastrointestinal: Bowel sounds normoactive in all 4 quadrants. Soft, nontender, and nondistended. Extremities: No pedal edema, cyanosis, or clubbing. Neurologic: Alert and oriented x2 with disorientation to time. Speech fluent. Follows commands. LAB DATA: White blood cell 15.42, hemoglobin 9.8, hematocrit 32.3, platelet count 201,000. Sodium 140, potassium 3.2, chloride 91, carbon dioxide 40, BUN 32, creatinine 1.4. Glucose 243. ABG, pH 7.58, pCO2 of 52, pO2 of 111, HCO3 of 43.2, base excess 23.5, and oxyhemoglobin 96.8%. IMAGING DATA: Chest x-ray revealed improving left lower lobe pneumonia. ASSESSMENT: This is a 78-year-old female with a medical history of chronic obstructive pulmonary disease, hypertension, adult failure to thrive, gastroesophageal reflux disease, anxiety, bipolar disorder, and chronic pain. She has been admitted to the [facility] since 12/16/2018 with chronic obstructive pulmonary disease exacerbation, probable pneumonia, and questionable altered mental status. 1. Acute, likely on chronic, hypoxemic hypercapnic respiratory failure. 2. Chronic obstructive pulmonary disease exacerbation. 3. Pneumonia, multilobar. 4. Encephalopathy. PLAN: 1. BiPAP at bedtime as needed. 2. Continue supplemental oxygen. 3. Continue Levaquin, meropenem, steroid, and bronchodilators. 4. Consider diuretics, if needed. 5. Follow up with CBC, BMP, blood culture, and serum sputum cultures. 6. Check ABG and chest x-ray if indicated. 7. Continue GI and DVT prophylaxis. 8. Further recommendation pending hospital course. Thank you for the courtesy of this consult. Dictated by CARLY Henley for Isaias Knapp MD cc: CARLY Henley MD
[2018-12-19] MEDS: DUONEB (A & A) INH SCH ×6 (03:23→23:38)
[2018-12-19] MEDS ORDERED: SOLU-MEDROL IV SCH (05:00)
[2018-12-19] MEDS: PRILOSEC PO SCH (05:51)
[2018-12-19] MEDS: MERREM 1 GM in NS 50 ML IV SCH ×3 (05:51→21:11)
[2018-12-19 06:13] LABS: BASO# 0.01 X1000 (0.0-0.2); BASO% 0.1 % (0.0-0.8); HEMATOCRIT 31.6 % (37.0-47.0); IMM GRAN# 0.12 X1000 (0.0-0.04); LYMPH# 0.44 X1000 (1.2-3.4); LYMPH% 3.6 % (20.5-51.1); MCH 31.1 PG (27-31); MCHC 31.6 g/dL (33-37); MCV 98.1 FL (81-99); MONO# 0.69 X1000 (0.11-0.59); MONO% 5.6 % (1.7-9.3); NEUT# 11.03 X1000 (1.4-6.5); NEUT% 89.7 % (42.2-75.2); PLT 203 X1000 (130-400); RBC 3.22 XMIL (4.2-5.4); WBC 12.29 X1000 (4.8-10.8)
[2018-12-19 06:19] LABS: CALCIUM 8.9 mg/dL (8.8-10.2); CREATININE 1.3 mg/dL (0.5-0.9); POTASSIUM 3.2 mmol/L (3.5-5.1)
[2018-12-19 07:33] LABS: BANDS 2 % (0-1); LYMPHS 4 % (21-51); MONO 4 % (1-9); SEGS 90 % (42-75)
[2018-12-19] MEDS ORDERED: KLOR-CON PO ONE (08:29)
[2018-12-19] MEDS: MUCOMYST 20% INH SCH ×2 (08:32→19:36)
[2018-12-19 08:59] LABS: ALLEN TEST YES; BE 15.7 mmoll (-3.0-3.0); BLOOD TYPE ARTERIAL; HCO3-(ACT) 37.1 mmoll (20.0-26.0); METHB 0.6 % (0.0-1.5); O2(CT) 14.7 mL/dL (15.0-23.0); O2HB 95.4 % (95.0-99.0); PO2(98.6) 78 mmHg (60-100); SAMPLE BLOOD; SAO2 96.6 % (95.0-100.0); THB 10.9 g/dL (11.5-17.4); pH(98.6) 7.49 (7.35-7.45)
[2018-12-19 09:01] LABS: MODALITY CANNULA; PCO2(98.6) 54 mmHg (35-45)
--- NOTE | 2018-12-19 09:34 | PROGRESS NOTE ---
DATE: 12/19/2018 SUBJECTIVE: This patient is alert and oriented today. She is following commands. She is feeling a little bit better, but a little bit depressed, but as per the patient, she has been depressed for the past 40 years. I have requested an evaluation by PT, OT. I will place this patient back on her Ativan since she has been taking this medication for a very long time, but I will give her a low dose instead. I will replace her potassium. OBJECTIVE: Vital Signs: Temperature 98.3 degrees, pulse 89, respiratory rate 19, blood pressure 135/61, oxygen saturation 93 on 4 L of nasal cannula. HEENT: Head normocephalic, no trauma. PERRLA. Neck: Supple. No JVD. No masses. Central trachea. Chest: Coarse breath sounds bilaterally with bilateral rhonchi. No wheezing today. Decreased breath sounds mostly at the bases. Abdomen: Soft, nontender, nondistended. No hepatosplenomegaly. Extremities: Trace edema. No clubbing, no cyanosis. Neurological: The patient is alert. She is oriented x3 today. She moves all 4 extremities. LABORATORY DATA: WBC 12.2, hemoglobin 10.0, hematocrit 31.6, platelets 203,000. Sodium 137, potassium 3.2, chloride 88, bicarbonate 38, BUN 32, creatinine 1.3, glucose 239, calcium 8.9. ASSESSMENT AND PLAN: 1. Acute on chronic hypercapnic respiratory failure, likely secondary to chronic obstructive pulmonary disease exacerbation and multilobar pneumonia. Continue with broad-spectrum antibiotics. Apparently also she has been recently treated for urinary tract infection as well. We will continue with the same management. I do believe she is getting better. WBC is trending down from 15.4 to 12.2. I have decrease also the dose of the steroids. 2. Multilobar pneumonia. CT scan showed bilateral infiltrates in multiple places. This patient is allergic to penicillin. We have placed this patient on meropenem and levofloxacin. Will continue with the same management. 3. Sepsis. Upon admission, this patient was tachypneic, elevated white blood cells, and a source of infection which I believe is getting better. 4. Likely metabolic encephalopathy, resolved. 5. Hypertension. For now, we will continue with the same management. 6. Adult failure to thrive. We will continue to monitor for now. 7. Gastroesophageal reflux disease. Continue proton pump inhibitors. 8. Hypokalemia. Will replace the potassium. 9. Generalized weakness. PT and OT have been requested for evaluation. 10. Depression, this is chronic. As per the patient, she has been depressed for the past 40 years. I will continue with her home medications. I believe she is getting better. Pending ABGs at this moment. BUN and creatinine likely at baseline. We will continue to monitor. She is tolerating p.o. and having bowel movements. cc: Nikolay Severino MD
[2018-12-19] MEDS: COLACE PO SCH (09:59)
[2018-12-19] MEDS: LEXAPRO PO SCH (09:59)
[2018-12-19] MEDS: NEURONTIN PO SCH ×3 (09:59→17:23)
[2018-12-19] MEDS: ATIVAN PO SCH ×2 (10:00→21:11)
[2018-12-19] MEDS: FOLIC ACID PO SCH (10:00)
[2018-12-19] MEDS: ASPIRIN PO SCH (10:00)
[2018-12-19] MEDS: PREDNISONE PO SCH (10:00)
[2018-12-19] MEDS: MILK OF MAGNESIA PO SCH (10:00)
[2018-12-19] MEDS: ZYRTEC PO SCH (10:00)
[2018-12-19] MEDS: HUMULIN R SUBQ SCH ×3 (12:02→21:12)
[2018-12-19] MEDS: LEVAQUIN 500 MG/D5W 500 MG/100 ML IVPB IV SCH (15:45)
--- NOTE | 2018-12-19 20:18 | PULMONOLOGY PROGRESS NOTE ---
DATE: 12/19/2018 SUBJECTIVE: The patient reports she is sad because she is having some issues with her grown children. She reports her breathing has improved. OBJECTIVE: Vital Signs: The patient has been afebrile for the last 24 hours. Blood pressure 149/82, heart rate 98, respiratory rate 16, oxygen saturation 94% on nasal cannula. HEENT: Pupils are equal and reactive. Oropharynx appears clear. Neck: Supple. Chest: Reveals occasional rhonchi bilaterally. Cardiac exam: S1, S2. Abdomen: Soft and without hepatosplenomegaly. Extremities: Reveal trace edema. LABORATORIES: No new microbiology data. White blood count 12.29, hemoglobin 10.0, platelet count 203,000. Arterial blood gas on nasal cannula, pH 7.49, pCO2 of 54, pO2 of 778. IMPRESSION: A 78-year-old with: 1. Multilobar pneumonia. 2. Acute on chronic hypoxemic respiratory failure. 3. Acute on chronic hypercapnic respiratory failure. 4. Chronic depression. RECOMMENDATIONS: 1. Continue current antibiotic regimen. 2. Agree with physical therapy. 3. Continue bronchial hygiene. cc: Keith Hager MD
[2018-12-19] MEDS: DEPAKOTE ER PO SCH (21:11)
[2018-12-19] MEDS: MELATONIN PO SCH (21:12)
[2018-12-20] MEDS: DUONEB (A & A) INH SCH ×6 (03:30→23:16)
[2018-12-20 03:48] LABS: ALLEN TEST YES; BE 17.9 mmoll (-3.0-3.0); BLOOD TYPE ARTERIAL; HCO3-(ACT) 38.8 mmoll (20.0-26.0); METHB 0.7 % (0.0-1.5); O2(CT) 12.2 mL/dL (15.0-23.0); O2HB 92.1 % (95.0-99.0); PO2(98.6) 57 mmHg (60-100); SAMPLE BLOOD; SAO2 93.2 % (95.0-100.0); THB 9.4 g/dL (11.5-17.4); pH(98.6) 7.51 (7.35-7.45)
[2018-12-20 03:49] LABS: MODALITY CANNULA
[2018-12-20 03:50] LABS: PCO2(98.6) 54 mmHg (35-45)
[2018-12-20] MEDS: PRILOSEC PO SCH (05:26)
[2018-12-20] MEDS: MERREM 1 GM in NS 50 ML IV SCH ×3 (05:26→20:01)
[2018-12-20 06:00] LABS: BASO# 0.13 X1000 (0.0-0.2); BASO% 1.3 % (0.0-0.8); EOS# 0.02 X1000 (0.0-0.7); EOS% 0.2 % (0.0-10.0); HEMATOCRIT 34.2 % (37.0-47.0); HEMOGLOBIN 11.3 g/dL (12.0-16.0); IMM GRAN# 0.44 X1000 (0.0-0.04); IMM GRAN% 4.5 % (0.0-0.5); LYMPH% 9.1 % (20.5-51.1); MCH 32.8 PG (27-31); MCV 99.4 FL (81-99); MONO# 1.08 X1000 (0.11-0.59); MONO% 10.9 % (1.7-9.3); MPV 9.6 FL (7.4-10.4); PLT 85 X1000 (130-400); RBC 3.44 XMIL (4.2-5.4); RDW 12.5 % (11.5-14.5); WBC 9.87 X1000 (4.8-10.8)
[2018-12-20] MEDS: HUMULIN R SUBQ SCH ×4 (06:07→20:01)
[2018-12-20 06:36] LABS: ALBUMIN 2.9 g/dL (3.5-5.0); CALCIUM 8.9 mg/dL (8.8-10.2); CREATININE 1.2 mg/dL (0.5-0.9); POTASSIUM 4.5 mmol/L (3.5-5.1); TOTAL BILIRUBIN 0.37 mg/dL (0.20-1.00); TOTAL PROTEIN 5.8 g/dL (6.3-8.3)
[2018-12-20 07:44] LABS: MPV 8.9 FL (7.4-10.4)
[2018-12-20 07:57] LABS: ALB/GLOB RATIO 1.1; ALBUMIN 3.2 g/dL (3.5-5.0); DIRECT BILIRUBIN 0.1 mg/dL (0.00-0.20); TOTAL BILIRUBIN 0.36 mg/dL (0.20-1.00); TOTAL PROTEIN 6.1 g/dL (6.3-8.3)
[2018-12-20] MEDS: LEXAPRO PO SCH (08:01)
[2018-12-20] MEDS: ZYRTEC PO SCH (08:02)
[2018-12-20] MEDS: PREDNISONE PO SCH (08:03)
[2018-12-20] MEDS: ASPIRIN PO SCH (08:03)
[2018-12-20] MEDS: NEURONTIN PO SCH ×3 (08:03→20:01)
[2018-12-20] MEDS: COLACE PO SCH (08:03)
[2018-12-20] MEDS: FOLIC ACID PO SCH (08:03)
[2018-12-20] MEDS: MILK OF MAGNESIA PO SCH (08:04)
[2018-12-20] MEDS: ATIVAN PO SCH ×2 (08:06→20:01)
[2018-12-20] MEDS: MUCOMYST 20% INH SCH ×2 (08:08→19:09)
--- NOTE | 2018-12-20 08:22 | PROGRESS NOTE ---
DATE: 12/20/2018 SUBJECTIVE: The patient is completely alert and oriented today. She is following commands. She is feeling better. Platelet count decreased compared with yesterday, and LFTs are a little bit elevated. I will repeat the platelet count and the LFTs at this moment to corroborate these numbers. She is breathing better. I believe she can be discharged next Saturday to her facility. OBJECTIVE: Vital Signs: Temperature 98.4 degrees, pulse 108, respiratory rate 17, blood pressure 129/78, oxygen saturation 91% on 4 L of nasal cannula. HEENT: Head normocephalic, no trauma. PERRLA. Neck: Supple. No JVD. No masses. Central trachea. Chest: Coarse breath sounds bilaterally with scattered rhonchi. No wheezing. Decreased breath sounds mostly at the bases. Abdomen: Soft, nontender, nondistended. No hepatosplenomegaly. Extremities: No edema, no clubbing, no cyanosis. Neurological: This patient is alert. She is oriented. She moves all 4 extremities. She is following commands. LABORATORY: WBC 9.8, hemoglobin 11.3, hematocrit 34.2, platelets 85,000. Sodium 139, potassium 4.5, chloride 92, bicarbonate 33, BUN 28, creatinine 1.2, glucose 80, calcium 8.9, AST 58, ALT 54, alkaline phosphatase 52, albumin 2.9. ASSESSMENT AND PLAN: 1. Acute on chronic hypercapnic respiratory failure secondary to chronic obstructive pulmonary disease exacerbation and multilobar pneumonia. Continue with broad-spectrum antibiotics. Apparently she also has been treated recently for UTI. We will continue with the same management. Pulmonary Department on board. 2. Multilobar pneumonia. CT scan showed bilateral infiltrates in multiple places. This patient is allergic to penicillin. Continue with meropenem and levofloxacin. We will continue with same management for now. 3. Sepsis. Upon admission, this patient was tachypneic, elevated white blood cells, and source of infection which I believe is getting better. 4. Likely metabolic encephalopathy, resolved. 5. Hypertension. Continue with same management. 6. Adult failure to thrive. We will continue to monitor for now. 7. Gastroesophageal reflux disease. Continue with proton pump inhibitors. 8. Hypokalemia, resolved. 9. Generalized weakness. PT and OT follow with this patient already. 10. Depression. This is chronic. As per the patient she has been depressed for the past 40 years. We will continue with her home medications. 11. Thrombocytopenia. Her platelet count has been mostly in the low 200s since admission, and today is 85. I will repeat the platelet count today again, and I will monitor. 12. Elevated liver function tests. LFTs a couple days ago were completely normal, and today, AST and ALT are slightly elevated. I will go ahead and ask for a new work to corroborate this information as well. cc: Nikolay Severino MD
[2018-12-20] MEDS ORDERED: LOPRESSOR IV ONE (10:22)
[2018-12-20] MEDS: LEVAQUIN 500 MG/D5W 500 MG/100 ML IVPB IV SCH (13:59)
[2018-12-20] MEDS: MELATONIN PO SCH (20:01)
[2018-12-20] MEDS: DEPAKOTE ER PO SCH (20:01)
--- NOTE | 2018-12-20 21:39 | PULMONOLOGY PROGRESS NOTE ---
DATE: 12/20/2018 SUBJECTIVE: The patient is awake, alert and conversant. She reports her breathing is at baseline. She reports she has some depression which has been chronic for many years and unchanged recently. OBJECTIVE: HEENT: Pupils are equal and reactive. Oropharynx appears clear. Neck: Supple. Chest: Reveals occasional rhonchi bilaterally. Cardiac exam: S1-S2. Abdomen: Soft and without hepatosplenomegaly. Extremities: Reveal trace edema. LABORATORIES: Arterial blood gas reveals a pH of 7.51, pCO2 of 54, pO2 of 57 on 4 L per nasal cannula. White blood count 9.87, hemoglobin 11.3, platelet count 220,000 on a repeat check. IMPRESSION: A 78-year-old with: 1. Chronic obstructive pulmonary disease. 2. Multilobar pneumonia. 3. Acute on chronic hypoxemic respiratory failure. 4. Acute on chronic hypercapnic respiratory failure. 5. Chronic depression. RECOMMENDATIONS: 1. Continue current antibiotic regimen. 2. Continue physical therapy. 3. Continue bronchial hygiene. 4. Follow up chest x-ray tomorrow morning. cc: Keith Hager MD
[2018-12-21] MEDS: DUONEB (A & A) INH SCH ×6 (03:30→23:30)
[2018-12-21 03:44] LABS: ALLEN TEST YES; BE 18.7 mmoll (-3.0-3.0); BLOOD TYPE ARTERIAL; HCO3-(ACT) 39.5 mmoll (20.0-26.0); METHB 0.9 % (0.0-1.5); O2(CT) 13.6 mL/dL (15.0-23.0); O2HB 94.3 % (95.0-99.0); PO2(98.6) 74 mmHg (60-100); SAMPLE BLOOD; SAO2 95.7 % (95.0-100.0); THB 10.2 g/dL (11.5-17.4); pH(98.6) 7.47 (7.35-7.45)
[2018-12-21 03:45] LABS: MODALITY CANNULA
[2018-12-21 03:46] LABS: PCO2(98.6) 62 mmHg (35-45)
[2018-12-21] MEDS: MERREM 1 GM in NS 50 ML IV SCH ×3 (04:01→23:12)
[2018-12-21 04:17] LABS: URINE SOURCE CLEAN CATCH
[2018-12-21 04:20] LABS: BILIRUBIN URINE NEGATIVE (NEGATIVE); BLOOD URINE NEGATIVE (NEGATIVE); COLOR YELLOW; GLUCOSE URINE NEGATIVE (NEGATIVE); KETONE URINE TRACE mg/dL (NEGATIVE); LEUKOCYTES URINE NEGATIVE (NEGATIVE); NITRITE URINE NEGATIVE (NEGATIVE); PROTEIN URINE TRACE mg/dL (NEGATIVE); SP GRAVITY URINE 1.013; TURBIDITY URINE CLEAR (CLEAR); UROBILINOGEN URINE NORMAL (NORMAL)
[2018-12-21 04:22] LABS: UR EPITHELIAL CELLS <10 /HPF (<10); URINE BACTERIA NEGATIVE /HPF; URINE RBC <10 /HPF (<10); URINE WBC <10 /HPF (<10)
[2018-12-21] MEDS: PRILOSEC PO SCH (05:42)
[2018-12-21 05:54] LABS: BASO# 0.07 X1000 (0.0-0.2); BASO% 0.5 % (0.0-0.8); EOS# 0.06 X1000 (0.0-0.7); EOS% 0.4 % (0.0-10.0); HEMATOCRIT 34.2 % (37.0-47.0); HEMOGLOBIN 10.6 g/dL (12.0-16.0); IMM GRAN# 1.03 X1000 (0.0-0.04); IMM GRAN% 7.3 % (0.0-0.5); LYMPH# 1.61 X1000 (1.2-3.4); LYMPH% 11.4 % (20.5-51.1); MCH 31.3 PG (27-31); MCV 100.9 FL (81-99); MONO# 1.46 X1000 (0.11-0.59); MONO% 10.3 % (1.7-9.3); MPV 9.2 FL (7.4-10.4); NEUT# 9.94 X1000 (1.4-6.5); NEUT% 70.1 % (42.2-75.2); PLT 207 X1000 (130-400); RBC 3.39 XMIL (4.2-5.4); RDW 12.6 % (11.5-14.5); WBC 14.17 X1000 (4.8-10.8)
[2018-12-21 06:11] LABS: ALBUMIN 2.8 g/dL (3.5-5.0); CALCIUM 9.1 mg/dL (8.8-10.2); CREATININE 1.5 mg/dL (0.5-0.9); POTASSIUM 4.1 mmol/L (3.5-5.1); TOTAL BILIRUBIN 0.25 mg/dL (0.20-1.00); TOTAL PROTEIN 5.6 g/dL (6.3-8.3)
[2018-12-21] MEDS: HUMULIN R SUBQ SCH ×4 (06:37→21:19)
[2018-12-21] MEDS ORDERED: D5W 500 ML IV SCH (07:15)
[2018-12-21] MEDS: MUCOMYST 20% INH SCH ×2 (07:28→19:45)
--- NOTE | 2018-12-21 07:30 | Diag Imaging Result Doc PS360 ---
EXAM: CHEST-PORTABLE HISTORY: dyspnea TECHNIQUE: Portable chest single view COMPARISON: 12/18/2018 FINDINGS: The lungs are well expanded except for left basilar atelectasis or infiltrates. The heart is not enlarged. The vessels are not distended. No consolidation. No effusion identified. IMPRESSION: Mild interval worsening in the left base. Electronically signed by Harjinder Meade 12/21/2018 7:28 AM
--- NOTE | 2018-12-21 08:33 | PROGRESS NOTE ---
DATE: 12/21/2018 SUBJECTIVE: No big changes compared with yesterday. WBC increased from 9 to 14, but she has been on steroids as well. Sodium level increased from 139 to 147. I encouraged the patient to drink a little bit more of water. LFTs are normal today. OBJECTIVE: Vital Signs: Temperature 97.9 degrees, pulse 89, respiratory rate 18, blood pressure 114/71, oxygen saturation 95% on 3 L of nasal cannula. HEENT: Head normocephalic. No trauma. PERRLA. Neck: Supple. No JVD. No masses. Central trachea. Chest: Coarse breath sounds bilaterally with scattered rhonchi mostly at the bases. No wheezing. Decreased breath sounds. Abdomen: Soft, nontender, nondistended. No hepatosplenomegaly. Extremities: No edema, no clubbing, no cyanosis. Neurological: The patient is alert. She is oriented. She moves all 4 extremities. She is following commands. LABORATORY DATA: WBC 14, hemoglobin 10.6, hematocrit 34.2, platelets 207,000. Sodium 147, potassium 4.1, chloride 100, bicarbonate 36, BUN 30, creatinine 1.5, glucose 100, calcium 9.1. AST 23, ALT 35, alkaline phosphatase 56, albumin 2.8. ASSESSMENT AND PLAN: 1. Acute on chronic hypercapnic respiratory failure secondary to chronic obstructive pulmonary disease exacerbation and multilobar pneumonia. Continue broad-spectrum antibiotics. Apparently, she also has been treated recently for urinary tract infection. Will continue with the same management. Pulmonary Department on board. 2. Multilobar pneumonia. CT scan showed bilateral infiltrates. This patient is allergic to penicillin. Will continue with meropenem and levofloxacin. It looks like she is getting better with her symptoms. 3. Sepsis. Upon admission, this patient was tachypneic, elevated white blood cells, and we do have a source of infection, which I believe is getting better. 4. Likely metabolic encephalopathy, resolved. 5. Hypertension. Continue with the same management. 6. Adult failure to thrive. Will continue to monitor for now. 7. Gastroesophageal reflux disease. Continue with proton pump inhibitors. 8. Hypokalemia, resolved. 9. Hypernatremia. I encouraged the patient to drink a little bit more water, and also I will give her a dose of D5W. 10. Thrombocytopenia, resolved. It looks like that was a laboratory mistake. 11. Elevated liver function tests, resolved. 12. This patient has been tachycardic, and she got better yesterday after using beta blockers. I will put her back on propranolol, which is her home medication. cc: Nikolay Severino MD
[2018-12-21] MEDS: LEXAPRO PO SCH (08:38)
[2018-12-21] MEDS: ASPIRIN PO SCH (08:38)
[2018-12-21] MEDS: LEVAQUIN PO SCH (08:39)
[2018-12-21] MEDS: ZYRTEC PO SCH (08:39)
[2018-12-21] MEDS: MILK OF MAGNESIA PO SCH (08:39)
[2018-12-21] MEDS: NEURONTIN PO SCH ×3 (08:39→21:14)
[2018-12-21] MEDS: FOLIC ACID PO SCH (08:39)
[2018-12-21] MEDS: PREDNISONE PO SCH (08:39)
[2018-12-21] MEDS: ATIVAN PO SCH ×2 (08:39→21:20)
[2018-12-21] MEDS: COLACE PO SCH (08:40)
[2018-12-21] MEDS: INDERAL LA PO SCH ×2 (08:40→21:13)
[2018-12-21] MEDS ORDERED: CALMOSEPTINE OINTMENT TOP PRN (14:01)
--- NOTE | 2018-12-21 19:53 | PULMONOLOGY PROGRESS NOTE ---
DATE: 12/21/2018 SUBJECTIVE: The patient is awake, alert. She has no new changes. She does have a flat affect but does smile with coaxing. OBJECTIVE: The patient has been afebrile for the last 24 hours. Blood pressure 132/76, heart rate 88, respiratory rate 17, oxygen saturation 96% on 3 L per nasal cannula.HEENT: Pupils are equal and reactive. Oropharynx is clear. Neck: Supple. Chest: Reveals prolonged expiratory phase with crackles in the lung bases. Cardiac: S1-S2. Abdomen: Soft and without hepatosplenomegaly. Extremities: Without edema. LABORATORIES: Chest x-ray reveals mild increased atelectasis at the left base. Microbiology reveals normal remy on sputum cultures. IMPRESSION: 1. A 78-year-old with multilobar pneumonia. 2. Chronic obstructive pulmonary disease. 3. Acute on chronic hypoxemic respiratory failure. 4. Acute on chronic hypercapnic respiratory failure. 5. Chronic depression. RECOMMENDATIONS: 1. Encourage patient to ambulate and participate with physical therapy. 2. Continue bronchial hygiene. 3. Continue current antibiotic regimen. Her x-ray looks slightly worse but clinically she is not significantly different. cc: Keith Hager MD
[2018-12-21] MEDS: DEPAKOTE ER PO SCH (21:13)
[2018-12-21] MEDS: MELATONIN PO SCH (21:14)
[2018-12-22] MEDS: DUONEB (A & A) INH SCH ×6 (03:36→23:00)
[2018-12-22 05:40] LABS: ALLEN TEST YES; BLOOD TYPE ARTERIAL; HCO3-(ACT) 34.2 mmoll (20.0-26.0); PO2(98.6) 68 mmHg (60-100); SAMPLE BLOOD; pH(98.6) 7.38 (7.35-7.45)
[2018-12-22 05:41] LABS: MODALITY CANNULA; PCO2(98.6) 68 mmHg (35-45)
[2018-12-22] MEDS: PRILOSEC PO SCH (06:36)
[2018-12-22] MEDS: MERREM 1 GM in NS 50 ML IV SCH ×4 (06:40→23:58)
[2018-12-22] MEDS: HUMULIN R SUBQ SCH ×4 (06:41→21:20)
--- NOTE | 2018-12-22 07:33 | EKG Report ---
Test Performed on : 12/20/2018 09:40:51 AM Test Reason : Increased HR Blood Pressure : / mmHG Vent. Rate : 125 BPM Atrial Rate : 125 BPM P-R Int : 152 ms QRS Dur : 066 ms QT Int : 304 ms P-R-T Axes : 066 033 060 degrees QTc Int : 438 ms Sinus tachycardia. with premature atrial complexes. with aberrant conduction. Low voltage QRS Borderline ECG When compared with ECG of 17-DEC-2018 16:52, aberrant conduction. is now present Confirmed by Kenna WALLACE, Willem ([id number]) on 12/22/2018 9:01:23 AM
--- NOTE | 2018-12-22 07:33 | EKG Report ---
Test Performed on : 12/20/2018 10:47:08 AM Test Reason : change in rhythm Blood Pressure : / mmHG Vent. Rate : 104 BPM Atrial Rate : 104 BPM P-R Int : 162 ms QRS Dur : 068 ms QT Int : 336 ms P-R-T Axes : 058 005 041 degrees QTc Int : 441 ms Sinus tachycardia. Low voltage QRS Borderline ECG When compared with ECG of 20-DEC-2018 09:40, (Unconfirmed) aberrant conduction. is no longer present Confirmed by Kenna WALLACE, Willem ([id number]) on 12/22/2018 9:01:37 AM
[2018-12-22 07:43] LABS: BASO# 0.06 X1000 (0.0-0.2); BASO% 0.4 % (0.0-0.8); EOS# 0.34 X1000 (0.0-0.7); EOS% 2.3 % (0.0-10.0); HEMATOCRIT 33.5 % (37.0-47.0); HEMOGLOBIN 10.3 g/dL (12.0-16.0); IMM GRAN# 1.09 X1000 (0.0-0.04); IMM GRAN% 7.3 % (0.0-0.5); LYMPH# 1.88 X1000 (1.2-3.4); LYMPH% 12.7 % (20.5-51.1); MCH 31.2 PG (27-31); MCHC 30.7 g/dL (33-37); MCV 101.5 FL (81-99); MONO# 0.97 X1000 (0.11-0.59); MONO% 6.5 % (1.7-9.3); MPV 9.3 FL (7.4-10.4); NEUT# 10.52 X1000 (1.4-6.5); NEUT% 70.8 % (42.2-75.2); RDW 12.6 % (11.5-14.5); WBC 14.86 X1000 (4.8-10.8)
[2018-12-22 07:55] LABS: ALBUMIN 2.8 g/dL (3.5-5.0); CALCIUM 8.4 mg/dL (8.8-10.2); CREATININE 1.3 mg/dL (0.5-0.9); MAGNESIUM 2.2 mg/dL (1.5-2.7); POTASSIUM 4.2 mmol/L (3.5-5.1); TOTAL BILIRUBIN 0.34 mg/dL (0.20-1.00); TOTAL PROTEIN 5.5 g/dL (6.3-8.3)
[2018-12-22] MEDS: MUCOMYST 20% INH SCH ×2 (08:08→19:40)
[2018-12-22 08:27] LABS: EOS 2 % (1-10); LYMPHS 13 % (21-51); MONO 7 % (1-9); SEGS 75 % (42-75)
[2018-12-22 08:30] LABS: PLT 222 X1000 (130-400)
[2018-12-22] MEDS: INDERAL LA PO SCH ×2 (09:28→21:18)
[2018-12-22] MEDS: ATIVAN PO SCH ×2 (09:28→21:18)
[2018-12-22] MEDS: ZYRTEC PO SCH (09:29)
[2018-12-22] MEDS: COLACE PO SCH (09:29)
[2018-12-22] MEDS: LEXAPRO PO SCH (09:29)
[2018-12-22] MEDS: ASPIRIN PO SCH (09:30)
[2018-12-22] MEDS: LEVAQUIN PO SCH (09:30)
[2018-12-22] MEDS: MILK OF MAGNESIA PO SCH (09:30)
[2018-12-22] MEDS: PREDNISONE PO SCH (09:30)
[2018-12-22] MEDS: NEURONTIN PO SCH ×3 (09:30→17:11)
[2018-12-22] MEDS: FOLIC ACID PO SCH (09:30)
--- NOTE | 2018-12-22 10:02 | PROGRESS NOTE ---
DATE: 12/22/2018 SUBJECTIVE: No big changes compared with yesterday, but she is still complaining of shortness of breath, I have requested an evaluation by Physical Therapy. WBC is still elevated at 14. X-ray done yesterday showed a mild interval worsening in the left base, but this patient feels better, though. I will continue with the same management. I will request a new chest x-ray for tomorrow morning. Pulmonary Department following this patient. I do believe this patient can be discharged in the next 24 to 48 hours. OBJECTIVE: Vital Signs: Temperature 98.4 degrees, pulse 68, respiratory rate 15, blood pressure 117/61, oxygen saturation 95 on 4 L of nasal cannula. HEENT: Head normocephalic, no trauma. PERRLA. Neck: Supple. No JVD. No masses. Central trachea. Chest: Coarse breath sounds bilaterally with scattered rhonchi, mostly at the bases. No wheezing. Decreased breath sounds mostly at the bases. Abdomen: Soft, nontender, nondistended. No hepatosplenomegaly. Extremities: No edema, no clubbing, no cyanosis. Neurological: The patient is alert. She is oriented. She moves all 4 extremities. She has generalized weakness. She is following commands. LABORATORY: WBC 14.8, hemoglobin 10.3, hematocrit 33.5, platelets 222,000 sodium 137, potassium 4.2, chloride 95, bicarbonate 33, BUN 26, creatinine 1.3, glucose 96, calcium 8.4, albumin 2.8. ASSESSMENT AND PLAN: 1. Acute on chronic hypercapnic respiratory failure secondary to chronic obstructive pulmonary disease exacerbation and multilobar pneumonia. Continue with broad-spectrum antibiotics, she recently has been also treated for urinary tract infection. Pulmonary Department is following this patient closely. I will ask for a new x-ray in the morning. I believe she can be discharged in the next 24 to 48 hours. 2. Multilobar pneumonia, CT scan of the chest showed bilateral infiltrates. This patient is allergic to penicillin. For now, we will continue with meropenem and levofloxacin. Her symptoms are better, but she is still having shortness of breath. I have requested physical therapy evaluation. 3. Sepsis. Upon admission, this patient was tachypneic, elevated white blood cells and we have a source of infection, but this is getting better. 4. Metabolic encephalopathy. Resolved. 5. Hypertension. Continue with same management. 6. Adult failure to thrive. We will continue to monitor for now. 7. Gastroesophageal reflux disease. Continue with proton pump inhibitors. 8. Hypokalemia, resolved. 9. Hypernatremia. Resolved. 10. Thrombocytopenia. I do believe that was a laboratory mistake. Resolved. 11. Elevated LFTs. Resolved. 12. Chronic kidney disease, stable. This patient has been getting antibiotics and breathing treatment since admission. She came in septic with acute on chronic hypercapnic respiratory failure due to multilobar pneumonia. She feels better, but she is still having some shortness of breath and she has generalized weakness, I have requested an evaluation by Physical Therapy and Occupational Therapy. I do believe this patient can be safely discharged in the next 24 to 48 hours. Blood culture and sputum culture so far negative. Pulmonary Department on board. cc: Nikolay Severino MD
[2018-12-22] MEDS: PERCOCET-5 PO PRN (15:47)
[2018-12-22] MEDS: DEPAKOTE ER PO SCH (21:18)
[2018-12-22] MEDS: MELATONIN PO SCH (21:18)
[2018-12-23] MEDS: DUONEB (A & A) INH SCH ×6 (04:00→23:48)
[2018-12-23] MEDS: PRILOSEC PO SCH (05:27)
[2018-12-23] MEDS: MERREM 1 GM in NS 50 ML IV SCH ×4 (05:27→23:53)
[2018-12-23 05:46] LABS: ALLEN TEST YES; BLOOD TYPE ARTERIAL; HCO3-(ACT) 33.3 mmoll (20.0-26.0); PO2(98.6) 58 mmHg (60-100); SAMPLE BLOOD; pH(98.6) 7.39 (7.35-7.45)
[2018-12-23 05:47] LABS: MODALITY CANNULA; PCO2(98.6) 64 mmHg (35-45)
[2018-12-23] MEDS: HUMULIN R SUBQ SCH ×4 (05:59→21:38)
[2018-12-23 07:28] LABS: BASO# 0.04 X1000 (0.0-0.2); BASO% 0.3 % (0.0-0.8); EOS# 0.33 X1000 (0.0-0.7); EOS% 2.1 % (0.0-10.0); HEMATOCRIT 33.4 % (37.0-47.0); HEMOGLOBIN 10.4 g/dL (12.0-16.0); IMM GRAN# 1.01 X1000 (0.0-0.04); IMM GRAN% 6.4 % (0.0-0.5); LYMPH# 1.53 X1000 (1.2-3.4); LYMPH% 9.8 % (20.5-51.1); MCH 31.2 PG (27-31); MCHC 31.1 g/dL (33-37); MCV 100.3 FL (81-99); MONO# 1.04 X1000 (0.11-0.59); MONO% 6.6 % (1.7-9.3); MPV 9.4 FL (7.4-10.4); NEUT# 11.73 X1000 (1.4-6.5); NEUT% 74.8 % (42.2-75.2); PLT 231 X1000 (130-400); RBC 3.33 XMIL (4.2-5.4); RDW 12.5 % (11.5-14.5); WBC 15.68 X1000 (4.8-10.8)
[2018-12-23] MEDS: MUCOMYST 20% INH SCH ×2 (07:30→19:25)
--- NOTE | 2018-12-23 07:35 | Diag Imaging Result Doc PS360 ---
EXAM: CHEST-PORTABLE INDICATION: dyspnea TECHNIQUE: One view COMPARISON: 12/21/2018 FINDINGS: The mild left basilar atelectasis +/- infiltrate is approximately stable. There may be a trace effusion as well on the left. No new consolidation is identified. Cardiac silhouette is stable. IMPRESSION: Essentially stable chest. Electronically signed by David Rust 12/23/2018 7:33 AM
[2018-12-23 07:42] LABS: BANDS 10 % (0-1); LYMPHS 8 % (21-51); MONO 6 % (1-9); SEGS 74 % (42-75)
[2018-12-23 07:44] LABS: HYPOCHROM 1+
[2018-12-23 07:45] LABS: CALCIUM 8.9 mg/dL (8.8-10.2); CREATININE 1.1 mg/dL (0.5-0.9); POTASSIUM 4.3 mmol/L (3.5-5.1)
[2018-12-23] MEDS: NEURONTIN PO SCH ×3 (08:48→16:46)
[2018-12-23] MEDS: ATIVAN PO SCH ×2 (08:48→21:36)
[2018-12-23] MEDS: MILK OF MAGNESIA PO SCH ×2 (08:48→09:17)
[2018-12-23] MEDS: INDERAL LA PO SCH ×2 (08:48→21:37)
[2018-12-23] MEDS: PREDNISONE PO SCH (08:49)
[2018-12-23] MEDS: LEXAPRO PO SCH (08:49)
[2018-12-23] MEDS: LEVAQUIN PO SCH (08:49)
[2018-12-23] MEDS: FOLIC ACID PO SCH (08:49)
[2018-12-23] MEDS: COLACE PO SCH (08:49)
[2018-12-23] MEDS: ASPIRIN PO SCH (08:49)
[2018-12-23] MEDS: ZYRTEC PO SCH (08:51)
--- NOTE | 2018-12-23 14:24 | PROGRESS NOTE ---
DATE: 12/23/2018 SUBJECTIVE: Patient reports feeling better. Denies any shortness of breath or fever. OBJECTIVE: Vital Signs: Temperature 97.9 degrees, heart rate 72, respiratory rate 20, blood pressure 115/51, O2 saturation 95% on 5 L nasal cannula General: This is a chronically ill- appearing, 78-year-old female, lying in bed, in no acute distress. HEENT: Head is normocephalic, atraumatic. Neck: No JVD noted. No carotid bruits. No lymphadenopathy. No thyromegaly. Cardiovascular: S1, S2 heard. No murmurs, gallops, or rubs. Regular rate and rhythm. Respiratory: There are coarse breath sounds noted in both pulmonary bases along with rhonchi. The patient is not using any accessory muscles or having work of breathing. No wheezing noted. Abdomen: Soft, nondistended. Nontender to palpation. Bowel sounds present. No organomegaly. Extremities: No clubbing, cyanosis, or edema. Peripheral pulses present in both legs. Neurological: Patient is alert and oriented x3. Moves 4 extremities. LABORATORY DATA: White cell count 15.68, hemoglobin 10.4, hematocrit 33.4, platelets 231,000. ABG shows pH 7.39 with pCO2 of 64, PO2 58 and BMP remarkable for creatinine 1.1, glucose 154. ASSESSMENT AND PLAN: 1. Acute on chronic hypercapnic respiratory failure secondary to chronic obstructive pulmonary disease exacerbation with multilobar pneumonia. The patient is on meropenem and levofloxacin. We will continue with the same management. White cell count is still elevated at 15,000. We will continue monitoring CBC, also Pulmonary is following this patient. We will continue with same management. 2. Bilateral pneumonia. That is what the CT of the chest showed. We will continue with antibiotics mentioned as above. Clinically, this patient is improving. 3. Sepsis secondary to multilobar pneumonia, getting better. We will continue to monitor. 4. Metabolic encephalopathy, resolved. 5. Hypertension. Blood pressure is under control. Continue with the same management. 6. Gastroesophageal reflux disease. We will continue with Protonix. 7. Hyponatremia, resolved. 8. Thrombocytopenia, resolved. 9. Chronic kidney disease. Creatinine is 1.1. I think he is at his baseline. We will continue to monitor. 10. Physical deconditioning. Physical therapy working with this patient. DISPOSITION: I this patient now is getting better but not really ready for discharge today. She is requiring 5 L of oxygen by nasal cannula now, but at home she uses 2 lt. Also white cell count is still elevated. If we do see some improvement on labs or decrease in oxygen needs, I think patient can be discharged within the next 24 - 48 hours. cc: Jan Rosa MD [facility]
[2018-12-23] MEDS: DEPAKOTE ER PO SCH (21:36)
[2018-12-23] MEDS: MELATONIN PO SCH (21:37)
[2018-12-24] MEDS: DUONEB (A & A) INH SCH ×6 (03:41→23:51)
[2018-12-24 05:49] LABS: ALLEN TEST YES; BE 14.4 mmoll (-3.0-3.0); BLOOD TYPE ARTERIAL; HCO3-(ACT) 36.2 mmoll (20.0-26.0); O2(CT) 12.8 mL/dL (15.0-23.0); O2HB 97.5 % (95.0-99.0); PO2(98.6) 109 mmHg (60-100); SAMPLE BLOOD; SAO2 98.1 % (95.0-100.0); THB 9.2 g/dL (11.5-17.4); pH(98.6) 7.42 (7.35-7.45)
[2018-12-24 05:50] LABS: MODALITY CANNULA; PCO2(98.6) 63 mmHg (35-45)
[2018-12-24] MEDS ORDERED: NS 50 ML ONE (06:26)
[2018-12-24] MEDS: PRILOSEC PO SCH (06:27)
[2018-12-24] MEDS: MERREM 1 GM in NS 50 ML IV SCH ×5 (06:32→18:08)
[2018-12-24 07:20] LABS: BASO# 0.03 X1000 (0.0-0.2); BASO% 0.2 % (0.0-0.8); EOS# 0.18 X1000 (0.0-0.7); EOS% 1.4 % (0.0-10.0); HEMATOCRIT 31.5 % (37.0-47.0); HEMOGLOBIN 9.7 g/dL (12.0-16.0); IMM GRAN# 0.82 X1000 (0.0-0.04); IMM GRAN% 6.6 % (0.0-0.5); LYMPH# 1.39 X1000 (1.2-3.4); LYMPH% 11.2 % (20.5-51.1); MCH 31.1 PG (27-31); MCHC 30.8 g/dL (33-37); MONO# 0.95 X1000 (0.11-0.59); MONO% 7.6 % (1.7-9.3); MPV 9.1 FL (7.4-10.4); NEUT# 9.05 X1000 (1.4-6.5); PLT 234 X1000 (130-400); RBC 3.12 XMIL (4.2-5.4); RDW 12.4 % (11.5-14.5); WBC 12.42 X1000 (4.8-10.8)
[2018-12-24] MEDS: MUCOMYST 20% INH SCH ×2 (07:30→19:58)
[2018-12-24 07:41] LABS: CALCIUM 8.8 mg/dL (8.8-10.2); POTASSIUM 4.3 mmol/L (3.5-5.1)
[2018-12-24] MEDS: INDERAL LA PO SCH ×2 (08:01→22:50)
[2018-12-24] MEDS: ATIVAN PO SCH ×2 (08:01→22:50)
[2018-12-24] MEDS: ASPIRIN PO SCH (08:01)
[2018-12-24] MEDS: ZYRTEC PO SCH (08:02)
[2018-12-24] MEDS: PERCOCET-5 PO PRN (08:02)
[2018-12-24] MEDS: LEVAQUIN PO SCH ×2 (08:02→18:18)
[2018-12-24] MEDS: PREDNISONE PO SCH (08:02)
[2018-12-24] MEDS: FOLIC ACID PO SCH (08:02)
[2018-12-24] MEDS: LEXAPRO PO SCH (08:03)
[2018-12-24] MEDS: COLACE PO SCH (08:03)
[2018-12-24] MEDS: NEURONTIN PO SCH ×3 (08:03→17:41)
[2018-12-24] MEDS: MILK OF MAGNESIA PO SCH (08:04)
[2018-12-24 08:14] LABS: BANDS 2 % (0-1); LYMPHS 6 % (21-51); MONO 4 % (1-9); SEGS 88 % (42-75)
[2018-12-24] MEDS: HUMULIN R SUBQ SCH ×3 (11:37→22:52)
--- NOTE | 2018-12-24 14:57 | PROGRESS NOTE ---
DATE: 12/16/2018 INTERVAL HISTORY: Patient with dyspnea at baseline. Afebrile overnight. No acute events overnight. No new complaints. Still on slightly increased oxygen but appears to have a significant room to wean. REVIEW OF SYSTEMS: Twelve point review of systems negative except as per interval history. LABS: WBC 2.4, hemoglobin 9.7, hematocrit 31.5, platelets 234,000. ABG with pH 7.42, pCO2 63, PO2 109, O2 saturation 97 on 3 L by nasal cannula. Basic metabolic panel unremarkable aside from creatinine 1.0, glucose 168. VITAL SIGNS: T-max 98.6 degrees, pulse 73, respirations 16, blood pressure 105/69, O2 saturation 100% on 4 L by nasal cannula. PHYSICAL EXAMINATION: General: No acute distress. Vital signs: As above. HEENT: Normocephalic, atraumatic. Moist mucous membranes. No cervical adenopathy. Cardiovascular: Regular rate and rhythm. No murmurs, rubs, or gallops. Pulmonary: Mildly decreased air entry throughout. Otherwise, largely clear to auscultation bilaterally. Abdomen: Soft, nontender, nondistended. Bowel sounds positive. Extremities: Peripheral pulses intact. No clubbing or cyanosis. Neurologic: Cranial nerves grossly intact. No focal deficits identified. Psychiatric: Normal mood and affect. Awake, alert, oriented x3. Skin: Herpetiform rash noted across the lower back bilaterally, extending somewhat down to the superior gluteal cleft. ASSESSMENT AND PLAN: 1. Acute on chronic hypoxic and hypercapnic respiratory failure: Multifactorial with COPD and pneumonia. The patient has been on meropenem and Levaquin. Approaching baseline at this point. Will wean oxygen and as she continues to improve then can likely be discharged on p.o. Levaquin tomorrow. White count continues to come down. Oxygen approaching baseline. 2. Pneumonia. Antibiotics as above. Resolving. 3. Metabolic encephalopathy, likely related to acute infection and hypercapnia. Now resolved. 4. Herpetiform rash. Patient with herpetiform rash on the low back and extending into the superior gluteal cleft. Initially suspected shingles, but it does cross multiple dermatomes, it is symmetric bilaterally and is nonpainful. No evidence of bacterial superinfection noted. Will monitor closely and consider valacyclovir and ID evaluation if this worsens. 5. Hypertension. Blood pressure control reasonable on current regimen. Continue to monitor. 6. Gastroesophageal reflux disease. Continue PPI. 7. Hyponatremia, resolved. 8. Thrombocytopenia, resolved. 9. Chronic kidney disease 3. Creatinine 1.0 which appears to be likely baseline. Monitor. 10. Disposition. Still on slightly increased oxygen but now approaching baseline. We will continue to wean oxygen. Monitor rash and if this does not worsen, then can likely be discharged back to [facility] tomorrow on p.o. Janis.
[2018-12-24] MEDS: MELATONIN PO SCH (22:51)
[2018-12-24] MEDS: DEPAKOTE ER PO SCH (22:51)
[2018-12-25] MEDS: MERREM 1 GM in NS 50 ML IV SCH ×3 (02:05→17:38)
[2018-12-25] MEDS: DUONEB (A & A) INH SCH ×4 (03:48→15:52)
[2018-12-25 05:01] LABS: ALLEN TEST YES; BE 14.3 mmoll (-3.0-3.0); BLOOD TYPE ARTERIAL; HCO3-(ACT) 36.1 mmoll (20.0-26.0); METHB 1.2 % (0.0-1.5); O2(CT) 12.1 mL/dL (15.0-23.0); PO2(98.6) 76 mmHg (60-100); SAMPLE BLOOD; SAO2 96.5 % (95.0-100.0); pH(98.6) 7.43 (7.35-7.45)
[2018-12-25 05:04] LABS: MODALITY CANNULA; PCO2(98.6) 61 mmHg (35-45)
[2018-12-25] MEDS: HUMULIN R SUBQ SCH ×4 (06:10→17:38)
[2018-12-25] MEDS: PRILOSEC PO SCH (06:11)
[2018-12-25 07:41] LABS: BASO# 0.03 X1000 (0.0-0.2); BASO% 0.2 % (0.0-0.8); EOS# 0.17 X1000 (0.0-0.7); EOS% 1.3 % (0.0-10.0); HEMATOCRIT 30.3 % (37.0-47.0); HEMOGLOBIN 9.3 g/dL (12.0-16.0); IMM GRAN# 0.65 X1000 (0.0-0.04); IMM GRAN% 4.9 % (0.0-0.5); LYMPH# 1.46 X1000 (1.2-3.4); MCH 30.8 PG (27-31); MCHC 30.7 g/dL (33-37); MCV 100.3 FL (81-99); MONO# 1.25 X1000 (0.11-0.59); MONO% 9.4 % (1.7-9.3); MPV 9.1 FL (7.4-10.4); NEUT# 9.75 X1000 (1.4-6.5); NEUT% 73.2 % (42.2-75.2); PLT 266 X1000 (130-400); RBC 3.02 XMIL (4.2-5.4); RDW 12.5 % (11.5-14.5); WBC 13.31 X1000 (4.8-10.8)
[2018-12-25] MEDS: MUCOMYST 20% INH SCH (08:02)
[2018-12-25 08:06] LABS: CREATININE 1.2 mg/dL (0.5-0.9); POTASSIUM 4.6 mmol/L (3.5-5.1)
[2018-12-25] MEDS: INDERAL LA PO SCH (09:55)
[2018-12-25] MEDS: NEURONTIN PO SCH ×3 (09:55→18:31)
[2018-12-25] MEDS: LEVAQUIN PO SCH ×2 (09:56→18:31)
[2018-12-25] MEDS: PREDNISONE PO SCH (09:56)
[2018-12-25] MEDS: ASPIRIN PO SCH (09:56)
[2018-12-25] MEDS: ZYRTEC PO SCH (09:56)
[2018-12-25] MEDS: MILK OF MAGNESIA PO SCH (09:56)
[2018-12-25] MEDS: FOLIC ACID PO SCH (09:56)
[2018-12-25] MEDS: COLACE PO SCH (09:56)
[2018-12-25] MEDS: LEXAPRO PO SCH (09:56)
[2018-12-25] MEDS: ATIVAN PO SCH (09:58)
--- NOTE | 2018-12-25 13:13 | DISCHARGE SUMMARY ---
ADMISSION DATE: 12/16/2018 DISCHARGE DATE: 12/25/2018 CONSULTATIONS: Pulmonology, Dr. Knapp. IMAGIN. Chest CT on 12/16 showing bilateral multilobar pneumonia, severe COPD with chronic bronchitis. 2. Head CT unremarkable. 3. Echocardiogram with normal EF of 68, no diastolic dysfunction. No major valve issues. DISCHARGE DIAGNOSES: 1. Bilateral pneumonia. 2. Acute on chronic hypoxic and hypercapnic respiratory failure. 3. Chronic obstructive pulmonary disease with mild exacerbation. 4. Metabolic encephalopathy. 5. Hypertension. 6. Gastroesophageal reflux disease. 7. Hyponatremia. 8. Thrombocytopenia. 9. Chronic kidney disease 3. 10. Herpetiform rash. HOSPITAL COURSE: The patient is a 78-year-old female with history of COPD, chronic hypoxic respiratory failure on 3 L of oxygen at home, hypertension, and GERD. She was brought in with confusion and hypoxia. She was found to have bilateral pneumonia. She was started on broad- spectrum antibiotics with Merrem and Levaquin. The patient's confusion was felt to be metabolic encephalopathy related to her underlying infection. She was also started on steroids for mild COPD exacerbation as she did have some wheezing and CO2 was elevated above baseline up to 84. With antibiotics, breathing treatments, and steroids, she improved slowly back to her baseline. On the day of discharge, her pCO2 had come down to 61 which appeared to be at or near her baseline. She was saturating very well on 2 to 3 L by nasal cannula, which is what she is on chronically at home. She was afebrile with only minimal leukocytosis which was felt to be steroid related. On the day prior to discharge, patient broke out in a herpetiform rash across most of her low back and superior gluteal cleft. She initially had some itching, but no pain with this. Given its distribution and symmetric bilateral pattern across numerous dermatomes, it was felt to be very unlikely to be shingles. The following day it appeared to be slowly resolving although definitely still present. It was thought that patient may have had a contact allergy to something. When it first occurred, all patient's bedding and pads were changed which did seem to help. The patient's chronic issues including hypertension, GERD, and CKD 3 were largely stable. DISCHARGE VITAL SIGNS: Temperature 98.2 degrees, pulse 76, respirations 18, blood pressure 117/57, and O2 saturation 94% on 2 L by nasal cannula. DISCHARGE DIET: Heart healthy. DISCHARGE MEDICATIONS: 1. Depakote 250 mg p.o. at bedtime. 2. Melatonin 10 mg p.o. at bedtime. 3. Aspirin 81 mg p.o. daily. 4. Astelin nasal spray b.i.d. as needed. 5. Ativan 1 mg p.o. b.i.d. as needed. 6. Breo Ellipta 1 puff inhaled daily, 7. Colace 200 mg p.o. daily. 8. Folic Acid 1 mg p.o. daily. 9. Gabapentin 300 mg p.o. t.i.d. 10. Propranolol 160 mg p.o. b.i.d. 11. Lexapro 20 mg daily. 12. Losartan/hydrochlorothiazide 100/25 1 tab daily. 13. Omeprazole 40 mg p.o. daily. 14. Percocet 5/325 1 tab q.8 hours p.r.n. 15. Prednisone 10 mg p.o. daily. 16. Zyrtec 10 mg p.o. daily, 17. Tylenol 650 mg p.o. q.6 hours p.r.n., not to exceed 3 g of total Tylenol in a day. FOLLOWUP AND PLAN: Patient is discharging back to [facility] long-term. Continuing course of antibiotics to finish treatment of pneumonia. Continue home oxygen. Follow up with PCP within the week for hospital followup, and to make sure her rash is continuing to improve. TIME SPENT: Greater than 30 minutes spent arranging discharge and counseling patient.
[2018-12-25 15:58] VITALS: BP 130/69
== END 2018-12-25 20:35 | DRG 871 ==
LOC: SUPCPDRO → ED 10:20 → SUATTDRO 14:37 → EDIPHOLD 14:37 → 3S 22:50 → 3N 12-21 16:53
PROVIDERS: ATTEND Internal Medicine
CPT/HCPCS: 51701; 51702; 70450; 71010; 71045; 71250; 80048; 80053; 80076; 81001; 82805; 82948; 83036; 83605; 83735; 83880; 84484; 85025; 85049; 87040; 87070; 87205; 93005; 93010; 93306; 94640; 94660; 94761; 94799; 96365; 96375; 97110; 97162; 97165; 97530; 99285; A9270; J1940; J1956; J2185; J2930; J3370; J7040; J7070; J7506; J7512; P9612; XXXXX

== ENCOUNTER 2019-01-23 15:06 | Inpatient (IN) ==
[2019-01-23] MEDS ORDERED: DUONEB (A & A) INH ONE (15:19)
[2019-01-23] MEDS ORDERED: ROCEPHIN 1 GM in NS 50 ML IV ONE (15:38)
--- NOTE | 2019-01-23 16:03 | Diag Imaging Result Doc PS360 ---
EXAM: CHEST-PORTABLE - 01/23/2019 HISTORY: respiratory distress TECHNIQUE: Portable chest COMPARISON: 12/23/2018 FINDINGS: Heart size appears normal. There has been interval decrease in atelectasis at left base. There is apparent residual or recurrent small left pleural effusion. The remainder of the lungs appear essentially clear. There is no pneumothorax identified. IMPRESSION: Decrease in atelectasis at left base compared to prior. Residual or recurrent small left pleural effusion. Electronically signed by Reese Lala 01/23/2019 4:00 PM
[2019-01-23 16:07] LABS: BASO# 0.04 X1000 (0.0-0.2); BASO% 0.2 % (0.0-0.8); EOS# 0.07 X1000 (0.0-0.7); EOS% 0.4 % (0.0-10.0); HEMOGLOBIN 9.6 g/dL (12.0-16.0); IMM GRAN# 0.09 X1000 (0.0-0.04); IMM GRAN% 0.5 % (0.0-0.5); LYMPH# 1.57 X1000 (1.2-3.4); MCH 30.7 PG (27-31); MCV 102.2 FL (81-99); MONO# 2.37 X1000 (0.11-0.59); MONO% 12.1 % (1.7-9.3); MPV 9.2 FL (7.4-10.4); NEUT# 15.46 X1000 (1.4-6.5); NEUT% 78.8 % (42.2-75.2); PLT 252 X1000 (130-400); RBC 3.13 XMIL (4.2-5.4); RDW 13.1 % (11.5-14.5)
[2019-01-23 16:11] LABS: INR 1.15; PROTIME 15.6 Seconds (11.0-16.0); PTT 29.8 Seconds (22.3-41.8)
[2019-01-23] MEDS ORDERED: NS 1,000 ML IV ONE (16:17)
[2019-01-23 16:22] LABS: ALLEN TEST YES; BE 8.5 mmoll (-3.0-3.0); BLOOD TYPE ARTERIAL; HCO3-(ACT) 31.5 mmoll (20.0-26.0); O2(CT) 12.3 mL/dL (15.0-23.0); O2HB 95.3 % (95.0-99.0); PO2(98.6) 75 mmHg (60-100); SAMPLE BLOOD; SAO2 97.4 % (95.0-100.0); THB 9.1 g/dL (11.5-17.4); pH(98.6) 7.25 (7.35-7.45)
[2019-01-23 16:24] LABS: MODALITY BI PAP; PCO2(98.6) 86 mmHg (35-45)
[2019-01-23] MEDS ORDERED: QUELICIN IV ONE (16:28)
[2019-01-23] MEDS ORDERED: AMIDATE IV ONE (16:30)
[2019-01-23 16:36] LABS: ALB/GLOB RATIO 1.1; ALBUMIN 3.4 g/dL (3.5-5.0); CALCIUM 8.6 mg/dL (8.8-10.2); CREATININE 2.8 mg/dL (0.5-0.9); MAGNESIUM 2.3 mg/dL (1.5-2.7); POTASSIUM 4.3 mmol/L (3.5-5.1); TOTAL BILIRUBIN 0.27 mg/dL (0.20-1.00); TOTAL PROTEIN 6.5 g/dL (6.3-8.3)
[2019-01-23] MEDS: DIPRIVAN 1% 1,000 MG/100 ML BOTTLE IV SCH (17:00)
[2019-01-23] MEDS ORDERED: ROCEPHIN ONE (17:04)
--- NOTE | 2019-01-23 17:42 | Diag Imaging Result Doc PS360 ---
EXAM: CHEST-PORTABLE INDICATION: Check for ET tube placement TECHNIQUE: One view COMPARISON: 01/23/2019 FINDINGS: There is a newly placed ET tube. The tip projects over the trachea and above the eusebia at about the T4 level. Otherwise, the chest is stable as compared to the recent prior study. IMPRESSION: Interval placement of ET tube in the expected position as described. Electronically signed by David Rust 01/23/2019 5:40 PM
--- NOTE | 2019-01-23 18:13 | HISTORY AND PHYSICAL ---
PRIMARY CARE PHYSICIAN: Dr. Gustavo Bull. CHIEF COMPLAINT: Decreased O2 saturation of 64% on room air while at [facility] today. HISTORY OF PRESENTING ILLNESS: This is a 78-year-old female who presents to [facility], via EMS from [facility]. Her O2 saturation was noted to be low at the shelter. She was put on BiPAP, then CPAP, but was lethargic en route. On arrival to the emergency room, she had an O2 saturation of 64%. She was placed on BiPAP initially, was not able to recover and had to be intubated with a 7.5 cm ET tube, verified by chest x-ray to be in placement. Workup showed decrease in atelectasis at left bases compared to prior. She had a chest x-ray on 01/22/2019 apparently at the shelter, that showed that she may be developing a pneumonia. Her white blood cell count was 19.60. Her ABG on arrival showed a pH of 7.25, pCO2 of 86, pO2 of 75, bicarbonate 31.5, and this was on 40% BiPAP. She is being admitted to the intensive care unit for further evaluation and treatment. PAST MEDICAL HISTORY: COPD, hypertension, adult failure to thrive, GERD and atrial fibrillation. PAST SURGICAL HISTORY: Cholecystectomy, appendectomy, and abdominal hernia repair. FAMILY HISTORY: Reviewed and noncontributory. SOCIAL HISTORY: She currently lives at [facility]. She was a former smoker but no tobacco, alcohol or illicit drug use currently. ALLERGIES: Penicillin. HOME MEDICATIONS: A current list needs to be obtained, reconciled, reviewed and restarted when appropriate. We will place an order for nursing to update and confirm home medications. LABORATORY DATA: White blood cell count 19.60, hemoglobin 9.6, hematocrit 32, platelets 252,000. PT and INR are 15.6 and 1.15. ABG with a pH of 7.25, pCO2 of 86, pO2 is 75, bicarbonate 31.5, and this was on 40% BiPAP. Sodium 142, potassium 4.3, chloride 96, CO2 is 34. BUN of 62, creatinine 2.8; this is above her baseline that appears to be around 1.2 to 1.5. Glucose was 129. Magnesium of 2.3. Cardiac enzymes were negative. ProBNP of 1415. Plasma lactate was 1.1. DIAGNOSTIC DATA: Chest x-ray showed a decrease in atelectasis at the left base compared to prior residual or recurrent small left pleural effusion. REVIEW OF SYSTEMS: Unable to obtain from patient at this time. PHYSICAL EXAMINATION: VITAL SIGNS: On arrival she had a temperature of 97.5 degrees, pulse 78, respirations 36, blood pressure 144/76, saturating 64% on room air. She is currently oxygenating at 100% via ventilator. HEENT: Normocephalic, atraumatic. Appears to have normal ENT inspection. Oropharynx was clear and easily intubated x1 attempt by ER MD. Nares are clear. Eyes: Pupils appear equal, round and reactive to light and accommodation. Unable to assess extraocular movement at this time. NECK: Normal to inspection. Normal range of motion. LUNGS: Decreased breath sounds bilaterally. She was in respiratory distress on arrival currently, and resting quietly on the ventilator with propofol in use. Equal lung expansion chest wall movement noted. HEART: Regular rate and rhythm. No murmurs, rubs or gallops. ABDOMEN: Soft, nontender, nondistended. Bowel sounds are present x4 quadrants. MUSCULOSKELETAL: Unable to assess at this time. NEUROLOGICAL: Unable to assess at this time. ASSESSMENT: 1. Acute respiratory failure with hypoxemic and hypercapnic failure. 2. Leukocytosis. 3. Developing pneumonia per chest x-ray yesterday. 4. Acute chronic obstructive pulmonary disease exacerbation. 5. Acute kidney injury. 6. Sepsis. PLAN: She is being admitted to the intensive care unit, placed on the ventilator per standard settings. We are consulting Pulmonology. She is on a propofol drip per protocol. She will be on DuoNeb q.4 hours, Rocephin 1 g IV q.24, azithromycin 500 IV q.24. We will apply SCDs for DVT prophylaxis. We will update and confirm her home medications. We will recheck a CBC and BMP in the a.m. We will place her on normal saline at 125 mL an hour. Patient seen and examined by me face to face, all the laboratory, images, vitals were reviewed, patient presented to the emergency department from a shelter, patient has a history of COPD, as well as A fib, hypertension, I am not sure if she has been on home oxygen, patient is remarkably sick, hypoxemic, she has been intubated, placed on antibiotics for possible pneumonia, she is wheezing bilaterally and her breath sounds are decreased, base on her presentation and lab work she is septic, blood pressure stable so far, pulmonary department will be on board, I agree with the AIR TECHNICIAN's assessment and plan, Nikolay Mena MD. Dictated by CARLY Huber for Nikolay Severino MD cc: CARLY Huber MD Kirk L. Jackson, MD [facility] CENTERDouglas
[2019-01-23 18:18] LABS: URINE SOURCE CATH
[2019-01-23 18:30] LABS: UR EPITHELIAL CELLS <10 /HPF (<10); URINE BACTERIA NEGATIVE /HPF; URINE RBC <10 /HPF (<10); URINE WBC <10 /HPF (<10)
[2019-01-23] MEDS ORDERED: ZITHROMAX 500 MG/NS 500 MG/250 ML IVPB IV ONE (18:30)
[2019-01-23 18:31] LABS: BILIRUBIN URINE SMALL (NEGATIVE); BLOOD URINE TRACE (NEGATIVE); COLOR YELLOW; GLUCOSE URINE NEGATIVE (NEGATIVE); KETONE URINE NEGATIVE (NEGATIVE); LEUKOCYTES URINE NEGATIVE (NEGATIVE); NITRITE URINE NEGATIVE (NEGATIVE); PROTEIN URINE TRACE mg/dL (NEGATIVE); SP GRAVITY URINE 1.016; TURBIDITY URINE CLEAR (CLEAR); UROBILINOGEN URINE NORMAL (NORMAL)
[2019-01-23] MEDS: DUONEB (A & A) INH SCH ×2 (19:31→23:16)
[2019-01-23] MEDS: NS 1,000 ML IV SCH (19:46)
--- NOTE | 2019-01-23 21:30 | PROVIDER DOCUMENTATION ---
This chart was entered by Danni Rust Scribe, acting as scribe for Mukund Mcclelland MD. HPI-Respiratory General - General Stated Complaint: RESP DISTRESS Time Seen by Provider: 01/23/19 15:13 Source: EMS Allergies/Adverse Reactions: Patient Allergies Allergy/AdvReac Type Severity Reaction Status Date / Time Penicillins Allergy Unknown Unknown Verified 01/23/19 15:39 Home Medications: Home Medication List Medication Instructions Recorded Confirmed Last Taken Type Aspirin 81 mg PO DAILY 11/21/14 12/16/18 10/16/17 History Omeprazole 40 mg PO DAILY@0600 11/21/14 12/16/18 12/16/18 History Propranolol HCl [Inderal LA] 160 mg PO BID 11/21/14 12/16/18 12/15/18 History Gabapentin 300 mg PO TID 09/09/17 12/16/18 12/15/18 History Losartan/Hydrochlorothiazide 1 each PO DAILY 10/16/17 12/16/18 12/15/18 History [Losartan-Hctz 100-25 mg Tab] Prednisone 10 mg PO DAILY 12/07/17 12/16/18 12/15/18 History Acetaminophen [Tylenol] 650 mg PO Q6H PRN PRN tablet 12/13/17 12/16/18 Unknown Rx Azelastine 137 Mcg Nasal [place] 2 spray INTRANASAL BID 12/16/18 12/16/18 12/15/18 History [Astelin Nasal [place]] Cetirizine HCl [Zyrtec] 10 mg PO DAILY 12/16/18 12/16/18 12/15/18 History Divalproex E.r. [Depakote ER] 250 mg PO QHS 12/16/18 12/16/18 12/15/18 History Docusate Sodium [Colace] 200 mg PO DAILY 12/16/18 12/16/18 12/15/18 History Fluticasone/Vilant 200/25 INH 1 puff INH DAILY 12/16/18 12/16/18 12/15/18 History [Breo Ellipta 200/25 Mcg INH] Folic Acid 1 mg PO DAILY 12/16/18 12/16/18 12/15/18 History Melatonin 10 mg PO QHS 12/16/18 12/16/18 12/15/18 History Escitalopram Oxalate [Lexapro] 20 mg PO DAILY #30 tab 12/25/18 Unknown Rx Levofloxacin [Levaquin] 750 mg PO DAILY@1800 #0 tab 12/25/18 Unknown Rx Lorazepam [Ativan] 1 mg PO BID PRN PRN #30 tab 12/25/18 Unknown Rx Magnesium Hydroxide [Milk of 30 ml PO DAILY PRN PRN #0 12/25/18 12/16/18 12/15/18 Rx Magnesia] Oxycodone HCl/Acetaminophen 1 tab PO Q8H PRN PRN #30 tab 12/25/18 Unknown Rx [Oxycodone-Acetaminophen 5-325] - History of Present Illness-Resp Nature of Presenting Problem: 78 yof c/o per ems pt is resident at [facility]. pt o2 became extremely low and custodial called ems. pt put on bipap then cpap in the ambulance. pt slightly lethargic enroute. ABG DONE IN RETIREMENT PH 7.28, Pco2 78, and po2 92. Pt is lethargic responsive to verbal stimuli, opened eyes. pt has hx afib, htn and copd. Review of Systems - Adult - REVIEW OF SYSTEMS - ADULT ROS:: limited per condition (ems) Constitutional: reports: no symptoms reported Respiratory: reports: see HPI, other (resp distress) Past History - Adult - PAST MEDICAL HISTORY-ADULT Review of Records: reports: Old Records Reviewed, Nursing Assessment Review, Medications Reviewed, Social history reviewed & non-contributory. Major Childhood Illnesses: reports: denies history Cardiovascular: reports: A-Fib, HTN Respiratory: reports: COPD Gastrointestinal: reports: GERD Obstetrical/Gynecological: reports: denies history Genitourinary: reports: denies history Musculoskeletal: reports: chronic pain Neurological: reports: denies history Psychiatric: reports: depression, psychiatric problems Endocrine/Immune: reports: denies history Other Conditions: reports: denies history - PRIOR SURGERIES/PROCEDURES Surgical/Procedure History: reports: appendectomy, cholecystectomy, hernia repair - PRIOR HOSPITALIZATIONS Prior Hospitalizations: reports: none - IMMUNIZATION STATUS Childhood Immunizations: See Nurse Assessment Flu Vaccine: See Nurse Assessment - FAMILY HISTORY Family History: reviewed, not pertinent - SOCIAL HISTORY Smoking: cigarettes, other (former) Substance Use: none/never Physical Exam-General - PHYSICAL EXAM-ADULT Initial Vital Signs Reviewed: Yes - CONSTITUTIONAL General Appearance: alert, moderate distress, lethargic. negative: slow to respond, obtunded - EYES Eyes: PERRL/EOMI, pink conjunctivae - HEAD, EARS, NOSE, MOUTH & THROAT HENMT: normocephalic/atraumatic, moist mucous membranes, normal ENT inspection - NECK Neck: non-tender, full range of motion, supple, normal inspection - RESPIRATORY Respiratory: respiratory distress (bipap in place), other (Poor air entry B/L). negative: crackles, wheezing - CARDIOVASCULAR Cardiovascular: regular rate, rhythm, no edema - GASTROINTESTINAL (ABDOMEN) Abdominal Exam: normal bowel sounds, non tender, soft - MUSCULOSKELETAL Extremity: non-tender, no pedal edema - NEUROLOGIC Neurologic: other (responsive to verbal stimuli GCS 12) Progress - PLAN OF CARE/RESULTS Progress/Plan/Lab Results: Vital Signs - 8 hr 01/23/19 15:16 01/23/19 15:17 01/23/19 15:20 Temperature Pulse Rate Respiratory Rate Blood Pressure 144/76 O2 Sat by Pulse Oximetry 70 L 64 L 94 L 01/23/19 15:28 01/23/19 15:30 01/23/19 15:39 Temperature 97.5 F L Pulse Rate 78 74 71 Respiratory Rate 36 H 19 23 Blood Pressure 144/76 113/73 O2 Sat by Pulse Oximetry 64 L 100 97 01/23/19 15:40 01/23/19 15:50 01/23/19 16:00 Temperature Pulse Rate 72 71 67 Respiratory Rate 23 20 21 Blood Pressure O2 Sat by Pulse Oximetry 96 96 95 01/23/19 16:03 01/23/19 16:10 01/23/19 16:20 Temperature Pulse Rate 71 73 68 Respiratory Rate 20 22 19 Blood Pressure 119/57 O2 Sat by Pulse Oximetry 96 94 L 96 01/23/19 16:30 01/23/19 16:33 01/23/19 16:40 Temperature Pulse Rate 72 72 69 Respiratory Rate 20 23 30 H Blood Pressure 125/111 O2 Sat by Pulse Oximetry 94 L 100 01/23/19 16:50 01/23/19 16:55 01/23/19 17:00 Temperature Pulse Rate 69 75 69 Respiratory Rate 23 17 16 Blood Pressure 147/115 O2 Sat by Pulse Oximetry 100 100 100 01/23/19 17:03 01/23/19 17:04 01/23/19 17:09 Temperature Pulse Rate 70 71 71 Respiratory Rate 18 16 16 Blood Pressure 132/76 135/53 145/69 O2 Sat by Pulse Oximetry 100 100 01/23/19 17:10 01/23/19 17:13 01/23/19 17:18 Temperature Pulse Rate 70 69 73 Respiratory Rate 18 16 21 Blood Pressure 138/67 120/91 O2 Sat by Pulse Oximetry 100 100 100 01/23/19 17:23 01/23/19 17:29 01/23/19 17:33 Temperature Pulse Rate 68 71 67 Respiratory Rate 22 19 18 Blood Pressure 89/66 98/61 94/54 O2 Sat by Pulse Oximetry 100 100 100 01/23/19 17:38 01/23/19 17:40 01/23/19 17:41 Temperature Pulse Rate 67 67 67 Respiratory Rate 18 19 16 Blood Pressure 76/48 78/49 76/46 O2 Sat by Pulse Oximetry 100 100 100 01/23/19 17:43 01/23/19 17:48 01/23/19 17:50 Temperature Pulse Rate 67 67 68 Respiratory Rate 16 22 18 Blood Pressure 78/47 78/51 93/61 O2 Sat by Pulse Oximetry 100 100 100 01/23/19 17:53 01/23/19 17:58 Temperature Pulse Rate 67 Respiratory Rate 16 Blood Pressure 99/55 O2 Sat by Pulse Oximetry 100 100 Laboratory Results - last 24 hr 01/23/19 01/23/19 01/23/19 15:37 15:37 15:37 WBC 19.60 H RBC 3.13 L Hgb 9.6 L Hct 32.0 L MCV 102.2 H MCH 30.7 MCHC 30.0 L RDW Std Deviation 13.1 Plt Count 252 D MPV 9.2 Immature Gran % (Auto) 0.5 Neut % (Auto) 78.8 H Lymph % (Auto) 8.0 L [place] % (Auto) 12.1 H Eos % (Auto) 0.4 Baso % (Auto) 0.2 Immature Gran # (Auto) 0.09 H Neut # (Auto) 15.46 H Lymph # (Auto) 1.57 Hendry # (Auto) 2.37 H Eos # (Auto) 0.07 Baso # (Auto) 0.04 PT INR PTT (Actin FS) Specimen Type Sample Site pH pCO2 pO2 HCO3 Base Excess Oxyhemoglobin ABG O2 Sat (Calculated) ABG O2 Saturation ABG Carboxyhemoglobin ABG Methemoglobin Benjamin Test A-a O2 Difference Total Hemoglobin Lactate Blood Gas Modality FiO2 % Inspiratory BiPAP Expiratory BiPAP Sodium 142 Potassium 4.3 Chloride 96 L Carbon Dioxide 34 Anion Gap 12 BUN 62 H D Creatinine 2.8 H Estimated GFR/1.73 m2 16 BUN/Creatinine Ratio 22 Glucose 129 H D Calculated Osmolality 302 Calcium 8.6 L Magnesium 2.3 Total Bilirubin 0.27 AST 13 ALT 11 Alkaline Phosphatase 55 Creatine Kinase 39 Troponin T Eis-Q-Ecybqngyfeq Pept Total Protein 6.5 Albumin 3.4 L Globulin 3.1 Albumin/Globulin Ratio 1.1 Plasma Lactate 1.1 Urine Source Urine Color Urine Turbidity Urine pH Ur Specific [place] Urine Protein Ur Glucose (Stick) Ur Ketones (Stick) Urine Blood Urine Nitrite Urine Bilirubin Urobilinogen Dipstick Urine Leukocytes Urine WBC (Auto) Urine RBC (Auto) U Epithel Cells (Auto) Urine Bacteria (Auto) 01/23/19 01/23/19 01/23/19 15:37 15:37 15:37 WBC RBC Hgb Hct MCV MCH MCHC RDW Std Deviation Plt Count MPV Immature Gran % (Auto) Neut % (Auto) Lymph % (Auto) [place] % (Auto) Eos % (Auto) Baso % (Auto) Immature Gran # (Auto) Neut # (Auto) Lymph # (Auto) [place] # (Auto) Eos # (Auto) Baso # (Auto) PT 15.6 INR 1.15 PTT (Actin FS) 29.8 Specimen Type Sample Site pH pCO2 pO2 HCO3 Base Excess Oxyhemoglobin ABG O2 Sat (Calculated) ABG O2 Saturation ABG Carboxyhemoglobin ABG Methemoglobin Benjamin Test A-a O2 Difference Total Hemoglobin Lactate Blood Gas Modality FiO2 % Inspiratory BiPAP Expiratory BiPAP Sodium Potassium Chloride Carbon Dioxide Anion Gap BUN Creatinine Estimated GFR/1.73 m2 BUN/Creatinine Ratio Glucose Calculated Osmolality Calcium Magnesium Total Bilirubin AST ALT Alkaline Phosphatase Creatine Kinase Troponin T 0.024 Wiv-B-Bpqmennczuf Pept 1415 H Total Protein Albumin Globulin Albumin/Globulin Ratio Plasma Lactate Urine Source Urine Color Urine Turbidity Urine pH Ur Specific [place] Urine Protein Ur Glucose (Stick) Ur Ketones (Stick) Urine Blood Urine Nitrite Urine Bilirubin Urobilinogen Dipstick Urine Leukocytes Urine WBC (Auto) Urine RBC (Auto) U Epithel Cells (Auto) Urine Bacteria (Auto) 01/23/19 01/23/19 16:13 17:30 WBC RBC Hgb Hct MCV MCH MCHC RDW Std Deviation Plt Count MPV Immature Gran % (Auto) Neut % (Auto) Lymph % (Auto) [place] % (Auto) Eos % (Auto) Baso % (Auto) Immature Gran # (Auto) Neut # (Auto) Lymph # (Auto) [place] # (Auto) Eos # (Auto) Baso # (Auto) PT INR PTT (Actin FS) Specimen Type ARTERIAL Sample Site R BRACHIAL pH 7.25 L pCO2 86 H* pO2 75 HCO3 31.5 H Base Excess 8.5 H Oxyhemoglobin 95.3 ABG O2 Sat (Calculated) 12.3 L ABG O2 Saturation 97.4 ABG Carboxyhemoglobin 2.30 ABG Methemoglobin 0.0 Benjamin Test YES A-a O2 Difference 103.0 Total Hemoglobin 9.1 L Lactate 0.70 Blood Gas Modality BI PAP FiO2 % 40.0 Inspiratory BiPAP 15.0 Expiratory BiPAP 8.0 Sodium Potassium Chloride Carbon Dioxide Anion Gap BUN Creatinine Estimated GFR/1.73 m2 BUN/Creatinine Ratio Glucose Calculated Osmolality Calcium Magnesium Total Bilirubin AST ALT Alkaline Phosphatase Creatine Kinase Troponin T Sao-R-Frhvoifzruj Pept Total Protein Albumin Globulin Albumin/Globulin Ratio Plasma Lactate Urine Source CATH Urine Color YELLOW Urine Turbidity CLEAR Urine pH 5.0 Ur Specific [place] 1.016 Urine Protein TRACE A Ur Glucose (Stick) NEGATIVE Ur Ketones (Stick) NEGATIVE Urine Blood TRACE A Urine Nitrite NEGATIVE Urine Bilirubin SMALL A Urobilinogen Dipstick NORMAL Urine Leukocytes NEGATIVE Urine WBC (Auto) <10 Urine RBC (Auto) <10 U Epithel Cells (Auto) <10 Urine Bacteria (Auto) NEGATIVE Orders Category Date Time Status Admit - [facility] Routine AdmDCTranf 01/23/19 17:46 Active Apply Mechanical Device [QM] ORDERED Care 01/23/19 17:46 Active Cardiac Monitoring DIRECTED Care 01/23/19 15:32 Completed Elevate Head of Bed DIRECTED Care 01/23/19 17:46 Active Encourage Fluids DIRECTED Care 01/23/19 17:46 Active Col[place]ares Cath Insertion ORDERED Care 01/23/19 17:46 Active IV Insertion ORDERED Care 01/23/19 15:32 Completed Intake and Output-Strict Q 8-HR ASSESS Care 01/23/19 17:46 Active Notify MD of + Sepsis Screen NOW Care 01/23/19 15:32 Completed Notify Physician As Ordered Care 01/23/19 15:32 Completed Nursing- Assist w/ IS as order ORDERED Care 01/23/19 17:46 Active Nursing- MD Consult Request ROUTINE Care 01/23/19 17:46 Completed Turn, Cough and Deep Breathe Q2HR Care 01/23/19 17:46 Active Update & Confirm Home Medicati ROUTINE Care 01/23/19 17:46 Active Vital Signs Order Q 4-HR ASSESS Care 01/23/19 17:46 Active Z-Document. for Tele Applied ORDERED Care 01/23/19 17:46 Active Physician/Provider Consults Routine Cons 01/23/19 17:46 Ordered CHEST-PORTABLE [RAD] Stat Exams 01/23/19 17:21 Completed cxr [CHEST-PORTABLE] [RAD] Stat Exams 01/23/19 15:18 Completed ABG [RESP] Routine Lab 01/23/19 16:13 Completed BASIC METABOLIC PANEL [CHEM] Routine Lab 01/24/19 06:00 Ordered BLOOD CULTURE [BLDCUL] Stat Lab 01/23/19 15:40 Results BNP [PRO B-NATRIURETIC PEPTIDE] Stat Lab 01/23/19 15:37 Completed CBC WITH DIFF [HEME] Routine Lab 01/24/19 06:00 Ordered CBC WITH ELECTRONIC DIFF [HEME] Stat Lab 01/23/19 15:37 Completed CK PROFILE [SP CHEM] Stat Lab 01/23/19 15:37 Completed COMPREHENSIVE METABOLIC PANEL [CHEM] Stat Lab 01/23/19 15:37 Completed LACTATE, PLASMA [CHEM] Lab 01/23/19 15:57 Ordered LACTATE, PLASMA [CHEM] Lab 01/23/19 20:06 Completed LACTATE, PLASMA [CHEM] Lab 01/23/19 21:45 Uncollected LACTATE, PLASMA [CHEM] Stat Lab 01/23/19 15:37 Completed MAGNESIUM [CHEM] Stat Lab 01/23/19 15:37 Completed PROTIME WITH INR [COAG] Stat Lab 01/23/19 15:37 Completed PTT [COAG] Stat Lab 01/23/19 15:37 Completed TROPONIN T Stat Lab 01/23/19 15:37 Completed URINALYSIS W/POSS RFLX CULT [URINALYSIS] Stat Lab 01/23/19 17:30 Completed 0.9% Sodium Chloride Inj [Ns] 1,000 ml Med 01/23/19 17:46 Active IV 125 mls/hr 0.9% Sodium Chloride Inj [Ns] 1,000 ml Med 01/23/19 16:17 Discontinued IV 999 mls/hr Albuterol 2.5MG/Ipratrop 0.5MG [Duoneb (A & A)] Med 01/23/19 19:30 Active 3 ml INH RTQ4H Albuterol 2.5MG/Ipratrop 0.5MG [Duoneb (A & A)] Med 01/23/19 15:19 Discontinued 9 ml INH NOW ONE Azithromycin 500 mg/Ns [Zithromax 500 mg/Ns] Med 01/24/19 20:00 Active 500 mg in 250 ml IV Q24H CefTRIAXONE [Rocephin] Med 01/23/19 17:04 Discontinued 1 gm .ROUTE .STK-MED ONE CefTRIAXONE [Rocephin] 1 gm Med 01/23/19 15:38 Discontinued 0.9% Sodium Chloride Inj [Ns] 50 ml IV NOW CefTRIAXONE [Rocephin] 1 gm Med 01/24/19 17:00 Active 0.9% Sodium Chloride Inj [Ns] 50 ml IV Q24H Etomidate [Amidate] Med 01/23/19 16:30 Discontinued 20 mg IV NOW ONE Propofol [Diprivan 1%] Med 01/23/19 16:30 Active 1,000 mg in 100 ml IV As Directed mls/hr Succinylcholine [Quelicin] Med 01/23/19 16:28 Discontinued 100 mg IV NOW ONE Aerosol Treatments Routine Ot 01/23/19 15:20 Completed Aerosol Treatments Routine Ot 01/23/19 17:46 Completed Aerosol Treatments Stat Ot 01/23/19 15:20 Completed Aerosol Treatments Stat Ot 01/23/19 17:46 Completed BIPAP Stat Ot 01/23/19 15:17 Active Incentive Spirometer Routine Ot 01/23/19 17:46 Active Oxygen Device Routine Ot 01/23/19 17:46 Active Oxygen Device Stat Ot 01/23/19 15:32 Completed Pulse Oximetry Routine Ot 01/23/19 17:46 Active Telemetry [OM.EQ] Routine Oth 01/23/19 17:46 Active Ventilator Order Routine Ot 01/23/19 17:46 Active Transfer/Admit Order [TRANSFER] Routine Transfer 01/23/19 17:20 Completed Result Diagrams: 01/23/19 15:37 01/23/19 15:37 - REASSESSMENT Reassessment #1 Time Reassessed: 16:18 Status: worsening (Worsening ABG despite Bipap. Patient seen by myself and Dr. Woo, confused. Bipap could be unsafe. Plan is to Intubate her.) - EKG 1 Time of EKG reading by physician:: 15:17 EKG Read and Signed by:: Mukund Mcclelland EKG Interpretation (*Must complete 3 of following elements*): Normal Rate: 78 Rhythm: NSR [place]: normal QRS: normal AL Interval: normal ST Wave: normal - XRAY 1 XRAY: Bilateral XRAY Study: Chest ( EXAM: CHEST-PORTABLE - 01/23/2019 HISTORY: respiratory distress TECHNIQUE: Portable chest COMPARISON: 12/23/2018 FINDINGS: Heart size appears normal. There has been interval decrease in atelectasis at left base. There is apparent residual or recurrent small left pleural effusion. The remainder of the lungs appear essentially clear. There is no pneumothorax identified. IMPRESSION: Decrease in atelectasis at left base compared to prior. Residual or recurrent small left pleural effusion. Electronically signed by Reese Lala 01/23/2019 4:00 PM) Impression: Abnormal Comparison with other Films: changes noted - CONSULTS/PCP/HOSPITALIST Notification #1 *Consult/PCP/Hospitalist*: [facility] [employer] OPERATOR Shavonne admitting for Dr. Laurent Time Discussed: 16:50 Reason/Comments: discussed pt w/hospitalist Consult Disposition: Admit (Hx, PE and patient care discussed, accepted.) Procedures - INTUBATION Airway Evaluation: Large/Loose Teeth Mallampati Class: 2 Intubation Method: orotracheal Equipment: ETT Tube Size (cm): 7.5 (22cm@gum) Pretreated with 100% Oxygen?: Yes Breath Sounds after Intubation: equal ETT Primary Tube Confirmation: Direct Visualization, Chest Rise and Fall, Tube placement verified on XRAY Intubation Complications: no complications Vent Settings: See Respiratory Therapy Notes Procedure Comment: Well tolerated. Departure - Departure Date of Disposition Decision: 01/23/19 Time of Disposition Decision: 19:26 DIAGNOSIS: MODS (multiple organ dysfunction syndrome), PRABHAKAR (acute kidney injury) Respiratory failure Qualifiers: Chronicity: acute Respiratory failure complication: hypoxia and hypercapnia Arias lified Code(s): J96.01 - Acute respiratory failure with hypoxia; J96.02 - Acute respiratory failure with hypercapnia Altered mental status Qualifiers: Altered mental status type: unspecified Qualified Code(s): R41.82 - Altered mental status, unspecified Disposition: ADMITTED INPATIENT 09 Certified Medical Emergency: Emergent Condition: Critical - Critical Care Note This patient required my direct & personal management of CC.: No Attestation - Physician/ MONICA Attestation Patient care was provided by Advanced Practice Provider:: No The physician spent face to face time with patient:: Yes Advanced Practice Provider documentation review:: Supervising physician onsite and consulted in the evaluation and care of this patient. The physician did have a face to face encounter with the patient. This chart was documented by the indicated scribe, (Danni Rust Scribe) and accurately reflects the services I performed and decisions made by me, Mukund Mcclelland MD, as attested by the provider's signature.
[2019-01-24] MEDS: DIPRIVAN 1% 1,000 MG/100 ML BOTTLE IV SCH ×4 (00:50→20:25)
[2019-01-24] MEDS: NS 1,000 ML IV SCH ×3 (03:14→20:19)
[2019-01-24] MEDS: DUONEB (A & A) INH SCH ×6 (03:17→23:35)
[2019-01-24 04:38] LABS: ALLEN TEST YES; BE 5.3 mmoll (-3.0-3.0); BLOOD TYPE ARTERIAL; METHB 1.1 % (0.0-1.5); O2(CT) 17.1 mL/dL (15.0-23.0); O2HB 94.7 % (95.0-99.0); PCO2(98.6) 43 mmHg (35-45); PO2(98.6) 87 mmHg (60-100); SAMPLE BLOOD; SRATE 14 BPM; THB 12.8 g/dL (11.5-17.4); TVOL 500 mL; pH(98.6) 7.45 (7.35-7.45)
[2019-01-24 04:41] LABS: MODALITY VENTILATOR
[2019-01-24 05:16] LABS: BASO# 0.01 X1000 (0.0-0.2); BASO% 0.1 % (0.0-0.8); EOS# 0.06 X1000 (0.0-0.7); EOS% 0.5 % (0.0-10.0); HEMATOCRIT 27.3 % (37.0-47.0); HEMOGLOBIN 8.2 g/dL (12.0-16.0); IMM GRAN# 0.06 X1000 (0.0-0.04); IMM GRAN% 0.5 % (0.0-0.5); LYMPH# 1.13 X1000 (1.2-3.4); LYMPH% 10.3 % (20.5-51.1); MCH 29.8 PG (27-31); MCV 99.3 FL (81-99); MONO# 1.04 X1000 (0.11-0.59); MONO% 9.5 % (1.7-9.3); MPV 9.3 FL (7.4-10.4); NEUT# 8.62 X1000 (1.4-6.5); NEUT% 79.1 % (42.2-75.2); PLT 178 X1000 (130-400); RBC 2.75 XMIL (4.2-5.4); RDW 12.9 % (11.5-14.5); WBC 10.92 X1000 (4.8-10.8)
[2019-01-24 05:39] LABS: CALCIUM 7.7 mg/dL (8.8-10.2); POTASSIUM 3.6 mmol/L (3.5-5.1)
--- NOTE | 2019-01-24 08:03 | Diag Imaging Result Doc PS360 ---
EXAM: CHEST-PORTABLE INDICATION: VENT TECHNIQUE: One view COMPARISON: 01/23/2019 FINDINGS: The ET tube is in stable position. The small left effusion and adjacent atelectasis and/or infiltrate is essentially stable. No new consolidation is identified. Cardiac silhouette is stable. IMPRESSION: Grossly stable chest. Electronically signed by David Rust 01/24/2019 8:01 AM
--- NOTE | 2019-01-24 09:04 | PROGRESS NOTE ---
DATE: 01/24/2019 SUBJECTIVE: This patient is still on mechanical ventilation and sedated. Her lab work seems to be a little bit better compared with yesterday as well. Her creatinine decreased from 2.8 to 2 to with a decent urine output at 1000 since admission. We will reconcile the medications. No family members at the bedside. We will try to call them today. We will continue to monitor in the ICU. Pulmonary Department on board. OBJECTIVE: Vital Signs: Temperature 98.4 degrees, pulse 74, respiratory rate 21 and blood pressure 118/68, oxygen saturation 100% on 40% oxygen flow. HEENT: Head normocephalic. No trauma. PERRLA. Neck: Supple. No JVD. Central trachea. Chest: Decreased breath sounds bilaterally with some end expiatory wheezing, prolonged expiratory phase. Some crepitus at the bases. Cardiovascular: Regular rate and rhythm. Abdomen: Soft, nontender, nondistended. No hepatosplenomegaly. Extremities: No cyanosis. No clubbing. Neurological: This patient is on mechanical ventilation and sedated. LABORATORY DATA: WBC 10.9, hemoglobin 8.2, hematocrit 27.3, platelets 178,000, sodium 144, potassium 3.6, chloride 104, bicarbonate 29, BUN 60, creatinine 2, glucose 106, calcium 7.7. ASSESSMENT AND PLAN: 1. Acute hypoxemic, hypercarbic respiratory failure. I am not quite sure if this patient is on home O2, this is likely secondary to chronic obstructive pulmonary disease exacerbation. This patient has been intubated, Pulmonary Department on board. She was discharged last month on 12/25/2018 and it looks like she was on steroids, so I will put her back on that and I will monitor. 2. Likely pneumonia per chest x-ray 2 days ago. I will continue with antibiotics. She has been placed on ceftriaxone and azithromycin. 3. Acute on chronic kidney disease, continue with IV fluids. This is getting better, she has a stable urine output. 4. Sepsis. Continue with antibiotics, breathing treatment, fluid resuscitation. She seems to be getting better. 5. Adult failure to thrive. Will continue to monitor for now. 6. Nutritional status. We will place an NG tube and we will start this patient on tube feeding. CRITICAL CARE TIME: 40 minutes. cc: Nikolay Severino MD
[2019-01-24] MEDS: SODIUM CHLORIDE 0.9% INJ SCH (09:13)
[2019-01-24] MEDS: PROTONIX IV SCH (09:13)
[2019-01-24] MEDS: SOLU-MEDROL IV SCH ×2 (09:13→20:20)
--- NOTE | 2019-01-24 10:18 | Diag Imaging Result Doc PS360 ---
EXAM: CHEST/ABD TUBE PLACEMENT INDICATION: OG tube placement TECHNIQUE: One view COMPARISON: 01/24/2019 FINDINGS: The newly placed NG tube projects well below the diaphragm and is assumed to be in the lumen of the stomach in expected position. Otherwise, the chest is grossly stable as compared to the recent prior study. IMPRESSION: Interval placement of NG tube in expected position as described. Electronically signed by David Rust 01/24/2019 10:16 AM
[2019-01-24] MEDS ORDERED: MORPHINE IV ONE (16:01)
[2019-01-24] MEDS ORDERED: LEVOPHED 8 MG in D5 1/2 NS 250 ML IV SCH (16:15)
[2019-01-24] MEDS: ROCEPHIN 1 GM in NS 50 ML IV SCH (16:46)
[2019-01-24] MEDS: ZITHROMAX 500 MG/NS 500 MG/250 ML IVPB IV SCH (20:19)
[2019-01-25] MEDS: DUONEB (A & A) INH SCH ×6 (03:25→23:30)
[2019-01-25 04:28] LABS: ALLEN TEST YES; BE 5.4 mmoll (-3.0-3.0); BLOOD TYPE ARTERIAL; HCO3-(ACT) 29.2 mmoll (20.0-26.0); METHB 0.5 % (0.0-1.5); O2(CT) 12.5 mL/dL (15.0-23.0); O2HB 97.2 % (95.0-99.0); PCO2(98.6) 43 mmHg (35-45); PO2(98.6) 137 mmHg (60-100); SAMPLE BLOOD; SAO2 97.9 % (95.0-100.0); SRATE 14 BPM; THB 8.9 g/dL (11.5-17.4); TVOL 500 mL; pH(98.6) 7.45 (7.35-7.45)
[2019-01-25 04:29] LABS: MODALITY VENTILATOR
[2019-01-25] MEDS: NS 1,000 ML IV SCH ×3 (06:23→15:43)
[2019-01-25 06:39] LABS: EOS# 0.03 X1000 (0.0-0.7); EOS% 0.4 % (0.0-10.0); HEMATOCRIT 26.4 % (37.0-47.0); HEMOGLOBIN 8.2 g/dL (12.0-16.0); IMM GRAN# 0.06 X1000 (0.0-0.04); IMM GRAN% 0.8 % (0.0-0.5); LYMPH# 0.39 X1000 (1.2-3.4); LYMPH% 5.4 % (20.5-51.1); MCH 30.3 PG (27-31); MCHC 31.1 g/dL (33-37); MCV 97.4 FL (81-99); MONO# 0.25 X1000 (0.11-0.59); MONO% 3.5 % (1.7-9.3); MPV 9.7 FL (7.4-10.4); NEUT# 6.51 X1000 (1.4-6.5); NEUT% 89.9 % (42.2-75.2); PLT 166 X1000 (130-400); RBC 2.71 XMIL (4.2-5.4); RDW 12.7 % (11.5-14.5); WBC 7.24 X1000 (4.8-10.8)
[2019-01-25 07:12] LABS: LYMPHS 8 % (21-51); SEGS 92 % (42-75)
[2019-01-25] MEDS: DIPRIVAN 1% 1,000 MG/100 ML BOTTLE IV SCH (07:22)
[2019-01-25 07:35] LABS: CALCIUM 7.9 mg/dL (8.8-10.2); CREATININE 1.2 mg/dL (0.5-0.9); POTASSIUM 3.6 mmol/L (3.5-5.1)
[2019-01-25 07:48] LABS: MAGNESIUM 2.2 mg/dL (1.5-2.7); PHOSPHORUS 2.4 mg/dL (2.7-4.5); PREALBUMIN 9.5 mg/dL (20-40)
--- NOTE | 2019-01-25 08:00 | Diag Imaging Result Doc PS360 ---
EXAM: CHEST-PORTABLE INDICATION: VENT TECHNIQUE: One view COMPARISON: 01/24/2019 FINDINGS: The NG tube is in stable position. The patient appears to have been extubated. The small left basilar effusion with adjacent atelectasis and/or infiltrate is essentially stable. No new consolidation is identified. Cardiac silhouette is stable. IMPRESSION: Essentially stable chest. Electronically signed by David Rust 01/25/2019 7:57 AM
[2019-01-25] MEDS: SODIUM CHLORIDE 0.9% INJ SCH (08:40)
[2019-01-25] MEDS: SOLU-MEDROL IV SCH ×2 (08:40→20:13)
[2019-01-25] MEDS: PROTONIX IV SCH (08:40)
[2019-01-25] MEDS: ATIVAN IV PRN ×3 (09:22→20:13)
[2019-01-25] MEDS: DEPACON IV SCH ×2 (10:28→20:19)
[2019-01-25] MEDS: NS IV SCH ×2 (10:28→20:19)
[2019-01-25] MEDS ORDERED: HALDOL IV ONE (11:14)
[2019-01-25 12:30] LABS: ALLEN TEST NO; BE 2.7 mmoll (-3.0-3.0); BLOOD TYPE ARTERIAL; METHB 0.4 % (0.0-1.5); O2(CT) 11.8 mL/dL (15.0-23.0); O2HB 96.1 % (95.0-99.0); PO2(98.6) 94 mmHg (60-100); SAMPLE BLOOD; SAO2 96.8 % (95.0-100.0); THB 8.6 g/dL (11.5-17.4); pH(98.6) 7.34 (7.35-7.45)
[2019-01-25 12:33] LABS: MODALITY VENTILATOR; PCO2(98.6) 54 mmHg (35-45)
--- NOTE | 2019-01-25 12:38 | PROGRESS NOTE ---
DATE: 01/25/2019 INTERVAL HISTORY: The patient remains intubated and sedated. She had 1 episode of tachycardia and hypertension last night, but it resolved spontaneously. Again with some elevated heart rate this morning, but blood pressure appears to have remained stable. On review of the EKG, it appears to be sinus tachycardia. No evidence of atrial fibrillation or atrial flutter. Rate is approximately 120 on both occasions. No other acute events overnight. REVIEW OF SYSTEMS: Unable to obtain secondary to patient mental status. LABORATORY DATA: WBC 7.2, hemoglobin 8.2, hematocrit 0.4, platelet 166,000. ABG with pH 7.45, pCO2 of 43, PO2 of 127, O2 saturation 97 on 40% FiO2 via ventilator. Sodium 143, potassium 3.6, BUN 44, creatinine 1.2, glucose 208, prealbumin 9.5. IMAGING: Chest x-ray: Stable left basilar effusion with atelectasis versus infiltrate. VITALS: Temperature maximum 99.0 degrees, pulse 66-123, blood pressure 112/82, O2 saturation 99% on 40% FiO2. PHYSICAL EXAMINATION: General: No acute distress, intubated and sedated. Vitals: As above. HEENT: Normocephalic, atraumatic. ET tube in place. No cervical adenopathy. Cardiovascular: Tachycardic, but regular. No murmur. Pulmonary: Moderately decreased air entry throughout, slight expiratory wheeze. On ventilator. Abdomen: Soft, nontender, nondistended. Bowel sounds positive. Extremities: Peripheral pulses intact. No clubbing, cyanosis. Neurologic: Exam limited by intubation and sedation. Withdraws to pain in all extremities. No obvious focal deficits. Pupils equal, round, and reactive to light. Psychiatric: Patient intubated, sedated, responsive only to noxious stimuli currently. Skin: No new rashes or lesions identified. ASSESSMENT AND PLAN: 1. Acute hypoxic and hypercarbic respiratory failure, chronic obstructive pulmonary disease exacerbation, and pneumonia. The patient's hypercapnia improved rapidly with intubation and breathing treatments and steroids. Oxygenation also somewhat improved. Some room to wean oxygen down. Pulmonology following and planning on possible spontaneous breathing trial today to see if she is ready for extubation. 2. Likely pneumonia. Continue antibiotics and monitor. 3. Leukocytosis, resolved. No fevers over the last 48 hours. 4. Acute kidney injury on chronic kidney disease, 3. Creatinine now significantly improved and now approaching baseline. Continue to monitor. 5. Adult failure to thrive. Continue to monitor. 6. Tachycardia, uncertain source. Infection appears to be resolving. Oxygenation improving. Appears to be adequately sedated. We will add a little Ativan, as patient is on Ativan at home. If tachycardia persists and is related to episodes of hypotension, then may get Cardiology to see her to see if they have any other thoughts. Blood pressure appears to be fine now, so we will tolerate mild sinus tachycardia.
[2019-01-25] MEDS: APRESOLINE IV PRN (15:37)
[2019-01-25] MEDS: HALDOL IV PRN ×2 (15:50→22:39)
[2019-01-25] MEDS: ROCEPHIN 1 GM in NS 50 ML IV SCH (16:00)
[2019-01-25] MEDS: ZITHROMAX 500 MG/NS 500 MG/250 ML IVPB IV SCH (20:13)
[2019-01-26] MEDS: DUONEB (A & A) INH SCH ×6 (03:39→23:30)
[2019-01-26 04:38] LABS: ALLEN TEST YES; BE 5.4 mmoll (-3.0-3.0); BLOOD TYPE ARTERIAL; HCO3-(ACT) 29.2 mmoll (20.0-26.0); METHB 0.1 % (0.0-1.5); O2(CT) 12.6 mL/dL (15.0-23.0); PO2(98.6) 114 mmHg (60-100); SAMPLE BLOOD; SAO2 97.6 % (95.0-100.0); THB 9.1 g/dL (11.5-17.4); pH(98.6) 7.38 (7.35-7.45)
[2019-01-26] MEDS: NS 1,000 ML IV SCH (04:44)
[2019-01-26] MEDS: ATIVAN IV PRN ×3 (04:44→21:32)
[2019-01-26] MEDS: HALDOL IV PRN ×2 (04:45→10:40)
[2019-01-26 04:51] LABS: MODALITY BI PAP; PCO2(98.6) 53 mmHg (35-45)
[2019-01-26 06:50] LABS: BASO# 0.01 X1000 (0.0-0.2); BASO% 0.1 % (0.0-0.8); HEMOGLOBIN 8.6 g/dL (12.0-16.0); IMM GRAN# 0.13 X1000 (0.0-0.04); IMM GRAN% 1.1 % (0.0-0.5); LYMPH# 0.54 X1000 (1.2-3.4); LYMPH% 4.4 % (20.5-51.1); MCH 30.3 PG (27-31); MCHC 30.7 g/dL (33-37); MCV 98.6 FL (81-99); MONO# 0.68 X1000 (0.11-0.59); MONO% 5.6 % (1.7-9.3); MPV 9.7 FL (7.4-10.4); NEUT# 10.85 X1000 (1.4-6.5); NEUT% 88.8 % (42.2-75.2); PLT 195 X1000 (130-400); RBC 2.84 XMIL (4.2-5.4); RDW 12.9 % (11.5-14.5); WBC 12.21 X1000 (4.8-10.8)
--- NOTE | 2019-01-26 07:14 | Diag Imaging Result Doc PS360 ---
EXAM: CHEST-PORTABLE INDICATION: VENT TECHNIQUE: One view COMPARISON: 01/25/2019 FINDINGS: The NG tube has been removed. There has been improvement of the left basilar pleural effusion and adjacent atelectasis and/or infiltrate. No new consolidation is identified. Cardiac silhouette is stable. IMPRESSION: Interval improvement as described. Electronically signed by David Rust 01/26/2019 7:12 AM
[2019-01-26 07:46] LABS: ALB/GLOB RATIO 0.9; ALBUMIN 2.8 g/dL (3.5-5.0); CALCIUM 8.3 mg/dL (8.8-10.2); CREATININE 1.1 mg/dL (0.5-0.9); POTASSIUM 3.9 mmol/L (3.5-5.1); TOTAL BILIRUBIN 0.23 mg/dL (0.20-1.00); TOTAL PROTEIN 5.8 g/dL (6.3-8.3)
--- NOTE | 2019-01-26 07:46 | EKG Report ---
Test Performed on : 01/23/2019 3:16:26 PM Test Reason : ED. NO EKG ORDER FOR MUSE Blood Pressure : / mmHG Vent. Rate : 078 BPM Atrial Rate : 078 BPM P-R Int : 170 ms QRS Dur : 072 ms QT Int : 394 ms P-R-T Axes : 055 025 041 degrees QTc Int : 449 ms Normal sinus rhythm. Normal ECG When compared with ECG of 20-DEC-2018 10:47, No significant change was found Unconfirmed Result
[2019-01-26 08:02] LABS: MAGNESIUM 2.3 mg/dL (1.5-2.7); PHOSPHORUS 2.8 mg/dL (2.7-4.5)
[2019-01-26] MEDS: SOLU-MEDROL IV SCH ×2 (09:06→20:41)
[2019-01-26] MEDS: NS IV SCH ×2 (09:07→20:41)
[2019-01-26] MEDS: DEPACON IV SCH ×2 (09:07→20:41)
[2019-01-26] MEDS: PROTONIX IV SCH (09:07)
--- NOTE | 2019-01-26 09:20 | EKG Report ---
Test Performed on : 01/24/2019 2:45:59 PM Test Reason : TACHYCARDIA Blood Pressure : / mmHG Vent. Rate : 130 BPM Atrial Rate : 070 BPM P-R Int : 000 ms QRS Dur : 072 ms QT Int : 320 ms P-R-T Axes : 000 -11 055 degrees QTc Int : 470 ms Accelerated Junctional rhythm. Low voltage QRS Abnormal ECG When compared with ECG of 23-JAN-2019 15:16, (Unconfirmed) Junctional rhythm. has replaced Sinus rhythm. Vent. rate has increased BY [address] now depressed in Inferior leads Confirmed by Jorgito WALLACE, Gustavo Perez ([id number]) on 01/26/2019 12:48:32 PM
[2019-01-26] MEDS ORDERED: NS 1,000 ML IV SCH (10:15)
[2019-01-26] MEDS: APRESOLINE IV PRN (10:40)
[2019-01-26] MEDS ORDERED: APRESOLINE IV ONE (14:00)
--- NOTE | 2019-01-26 14:36 | PROGRESS NOTE ---
DATE: 01/26/2019 INTERVAL HISTORY: The patient was successfully extubated yesterday afternoon. Since extubation, has remained somnolent but arousable. Remains on BiPAP with reasonable oxygenation. No further tachycardia or hypotension. REVIEW OF SYSTEMS: Unable to obtain secondary to patient's mental status. LABS: WBC 12.2, hemoglobin 8.6, hematocrit 28.0, platelets 195,000. ABG with pH of 7.38, pCO2 53, PO2 114, O2 saturation 97.6 on 40% FiO2 via BiPAP. Sodium 151, potassium 3.9, chloride 112, BUN 40, creatinine 1.1, glucose 150. VITALS: T-max 99.7 degrees, pulse 75, respirations 16, blood pressure 186/96, O2 saturation 98% on 40% BiPAP. PHYSICAL EXAMINATION: General: No acute distress. Vitals: As above. HEENT: Normocephalic and atraumatic. On BiPAP. No cervical adenopathy. Cardiovascular: Regular rate and rhythm. No murmurs noted. Pulmonary: Still with moderately decreased air entry throughout. Wheezing appears improved. Abdomen: Soft, nontender, nondistended. Bowel sounds positive. Extremities: Peripheral pulses intact. No clubbing, cyanosis. Neurologic: Examination limited by patient's mental status but opens eyes to voice, will generally squeeze with hands, although does better with the right side than the left. Generally, no purposeful movements. Pupils equal, round, reactive to light. Psychiatric: Patient somnolent but arousable. Does not respond verbally to commands or conversation. Skin: No new rashes or lesions identified. ASSESSMENT AND PLAN: 1. Acute hypoxic and hypercarbic respiratory failure, chronic obstructive pulmonary disease exacerbation, pneumonia. The patient's hypercapnia improved rapidly with intubation, breathing treatments, and steroids. Slight up-trend over the last couple of days but largely stable and likely at or near baseline. Oxygenation somewhat improved but still requiring significant oxygen on BiPAP. Some room to wean. Continue to monitor closely in the intensive care unit. 2. Likely pneumonia. Continue antibiotics and monitor. 3. Acute kidney injury on chronic kidney disease 3. Creatinine essentially baseline at this point. We will decrease intravenous fluids and continue to monitor. 4. Adult failure to thrive. Continue to monitor. We will consider placing a nasogastric tube and starting tube feeds if the patient does not wake up enough to begin eating over the next day or two.
[2019-01-26] MEDS ORDERED: APRESOLINE IV PRN (15:50)
[2019-01-26] MEDS: ROCEPHIN 1 GM in NS 50 ML IV SCH (18:00)
[2019-01-26] MEDS: GEODON IM PRN (18:12)
[2019-01-26] MEDS: STERILE WATER INJ. INJ PRN (18:12)
[2019-01-26] MEDS: ZITHROMAX 500 MG/NS 500 MG/250 ML IVPB IV SCH (20:41)
[2019-01-27] MEDS: HALDOL IV PRN (00:01)
[2019-01-27] MEDS: STERILE WATER INJ. INJ PRN ×2 (01:17→07:56)
[2019-01-27] MEDS: GEODON IM PRN ×2 (01:17→07:56)
[2019-01-27] MEDS ORDERED: INDERAL IV SCH (01:45)
[2019-01-27] MEDS: DUONEB (A & A) INH SCH ×6 (03:00→23:30)
[2019-01-27] MEDS: ATIVAN IV PRN ×3 (04:50→20:14)
[2019-01-27 05:52] LABS: BLOOD TYPE ARTERIAL; SAMPLE BLOOD
[2019-01-27 05:53] LABS: ALLEN TEST YES; BE 4.9 mmoll (-3.0-3.0); HCO3-(ACT) 28.8 mmoll (20.0-26.0); METHB 0.4 % (0.0-1.5); O2(CT) 11.9 mL/dL (15.0-23.0); O2HB 97.1 % (95.0-99.0); PO2(98.6) 127 mmHg (60-100); SAO2 97.9 % (95.0-100.0); THB 8.5 g/dL (11.5-17.4); pH(98.6) 7.36 (7.35-7.45)
[2019-01-27 06:02] LABS: MODALITY CANNULA; PCO2(98.6) 55 mmHg (35-45)
[2019-01-27] MEDS ORDERED: INDERAL IV ONE ×2 (06:15→06:50)
[2019-01-27] MEDS ORDERED: LANOXIN IV ONE (06:49)
--- NOTE | 2019-01-27 07:20 | Diag Imaging Result Doc PS360 ---
EXAM: CHEST-PORTABLE HISTORY: VENT TECHNIQUE: Portable chest single view COMPARISON: 01/26/2019 FINDINGS: The patient is rotated to the right. There are infiltrates in the lower left lung. These are more pronounced than on the prior study. There may also a small left pleural effusion. IMPRESSION: Mild interval worsening. Electronically signed by Harjinder Meade 01/27/2019 7:18 AM
[2019-01-27 07:48] LABS: BASO# 0.02 X1000 (0.0-0.2); BASO% 0.2 % (0.0-0.8); HEMATOCRIT 29.4 % (37.0-47.0); HEMOGLOBIN 8.7 g/dL (12.0-16.0); IMM GRAN% 2.3 % (0.0-0.5); MCH 29.7 PG (27-31); MCHC 29.6 g/dL (33-37); MCV 100.3 FL (81-99); MONO# 0.75 X1000 (0.11-0.59); MONO% 5.7 % (1.7-9.3); MPV 8.7 FL (7.4-10.4); NEUT# 11.79 X1000 (1.4-6.5); NEUT% 88.8 % (42.2-75.2); PLT 215 X1000 (130-400); RBC 2.93 XMIL (4.2-5.4); RDW 13.4 % (11.5-14.5); WBC 13.26 X1000 (4.8-10.8)
[2019-01-27 07:52] LABS: INR 1.08; PROTIME 14.9 Seconds (11.0-16.0)
[2019-01-27] MEDS: SOLU-MEDROL IV SCH ×2 (08:03→21:34)
[2019-01-27] MEDS: PROTONIX IV SCH (08:04)
[2019-01-27 08:10] LABS: AGAP 13; BUN 40 mg/dL (8-22); CALCIUM 8.7 mg/dL (8.8-10.2); CHLORIDE 114 mmol/L (98-107); COSMO 317; CREATININE 0.9 mg/dL (0.5-0.9); ESTIMATED GFR > 60; GLUCOSE 162 mg/dL (70-104); POTASSIUM 3.9 mmol/L (3.5-5.1); SODIUM 153 mmol/L (136-145); TCO2 26 mmol/L (25-35)
[2019-01-27] MEDS: CARDIZEM 125/NS 125 MG/125 ML IVPB IV SCH ×2 (08:26→19:55)
[2019-01-27] MEDS ORDERED: NS 250 ML ONE (08:43)
[2019-01-27] MEDS: DEPACON IV SCH ×2 (09:00→21:34)
[2019-01-27] MEDS: NS IV SCH ×2 (09:00→21:34)
--- NOTE | 2019-01-27 09:20 | EKG Report ---
Test Performed on : 01/27/2019 00:28:35 AM Test Reason : ICU. No order in [place] Blood Pressure : / mmHG Vent. Rate : 192 BPM Atrial Rate : 220 BPM P-R Int : 000 ms QRS Dur : 064 ms QT Int : 240 ms P-R-T Axes : 000 013 072 degrees QTc Int : 429 ms Supraventricular tachycardia. with occasional premature ventricular complexes. Low voltage QRS Nonspecific ST and T wave abnormality Abnormal ECG When compared with ECG of 27-JAN-2019 00:28, (Unconfirmed) premature ventricular complexes. are now present Confirmed by Jorgito WALLACE, Gustavo Perez ([id number]) on 01/28/2019 10:18:32 AM
[2019-01-27] MEDS: 1/2 NS 1,000 ML IV SCH (10:00)
--- NOTE | 2019-01-27 13:12 | CARDIOLOGY CONSULTATION ---
DATE: 01/27/2019 HISTORY OF PRESENT ILLNESS: Patient admitted with pneumonia. Patient went into tachycardia. Patient had supraventricular tachycardia. Started on a Cardizem drip. Currently in sinus rhythm. History was obtained from the chart. The patient altered mental status. History could not be obtained from the patient. Patient was recently admitted and discharged on 12/25/2018. She had bilateral pneumonia, acute on chronic hypoxic hypercapnic respiratory failure, she has COPD, metabolic encephalopathy, hypertension, gastroesophageal reflux disease. Had thrombocytopenia and renal insufficiency and had a rash at that time. The patient is a resident at the [facility]. She was brought to the hospital given her decreasing saturation. She was placed on BiPAP, and she was noted to be lethargic. She has been sedated. She is currently on BiPAP. Chest x-ray revealed pneumonia of left base. Chest x-ray on 01/22/2019 also showed developing pneumonia. REVIEW OF SYSTEMS: Could not be obtained from the patient. PAST MEDICAL HISTORY: 1. Recent discharge with bilateral pneumonia. 2. COPD. 3. Hypertension. 4. Failure to thrive. 5. Gastroesophageal reflux disease. 6. Recently had thrombocytopenia. 7. Chronic renal insufficiency. HOME MEDICATIONS: Propranolol 160 b.i.d., omeprazole 40, enteric-coated aspirin 81 mg a day, gabapentin 300 p.o. t.i.d., losartan/hydrochlorothiazide, prednisone 10, docusate, inhalers, folic acid, melatonin 5, azelastine nasal spray, cetirizine tablets, Lexapro, pain medications. ALLERGIES: She is allergic to penicillin. PHYSICAL EXAMINATION: Vital Signs: Blood pressure was 163/63. Cardiovascular System: Jugular sinus pressure could not be assessed. First and second heart sounds were heard. There was no S3, gallop. Respiratory System: Bilateral expiratory wheeze. Abdomen: Soft. Central nervous system: Could not be assessed. Skin: She had bruising noted on her upper shoulders and the legs, petechiae looking. ASSESSMENT AND PLAN: Ms. Tanvi Nuñez is a 78-year-old lady who has pneumonia, has history of chronic obstructive pulmonary disease, hypertension, history of thrombocytopenia, renal insufficiency, failure to thrive. She is admitted with increasing shortness of breath and was noted to have decreased oxygen saturations. 1. For pneumonia, she has been started on antibiotics with Zithromax and ceftriaxone. 2. From a cardiac standpoint, electrocardiogram revealed supraventricular tachycardia. She is on a Cardizem drip. She is in sinus rhythm. Recent echocardiogram revealed preserved left ventricular systolic function. Ejection fraction of 68%. RECOMMENDATIONS: 1. From a cardiac standpoint, when she is able to take her p.o. medicines we will switch her from Cardizem IV to Cardizem p.o. We will discontinue the beta blockers. She had been on propranolol. Those changes be given her SVT. 2. For hypertension, at home she has been on losartan/hydrochlorothiazide. We will continue that once she takes p.o. medications. For the interim we will give her hydralazine IV as needed to keep her systolic blood pressure less than 160. 3. Pneumonia. Continue with her antibiotics. 4. She also has chronic obstructive pulmonary disease. Continue with management as planned. Thank you for the consult. cc: Nj Engel MD
[2019-01-27] MEDS: LOVENOX SUBQ SCH (15:15)
[2019-01-27] MEDS: APRESOLINE IV PRN (15:15)
[2019-01-27] MEDS: MORPHINE IV PRN ×2 (15:16→20:14)
--- NOTE | 2019-01-27 16:41 | PROGRESS NOTE ---
DATE: 01/27/2019 INTERVAL HISTORY: The patient had markedly elevated heart rate this morning. Appeared to be in SVT. Had a brief drop in blood pressure but this did not persist. Oxygenation remained stable. She was placed on a diltiazem drip which did appear to control her heart rate. Cardiology was consulted. No other acute events overnight. She remained minimally responsive but does have occasional nonpurposeful movements of all extremities. REVIEW OF SYSTEMS: Unable to obtain secondary to patient's mental status. LABORATORY DATA: WBCs 13.2, hemoglobin 8.7, hematocrit 24, platelets 215,000. ABG with pH of 7.36, PCO2 of 55, PAO2 of 127, O2 saturation 97% on 5 L by nasal cannula. Sodium 153, potassium 3.9, bicarb 26, BUN 40, creatinine 0.9, glucose 162. Troponin 0.08. TSH 0.4, free T4 of 1.1. VITAL SIGNS: T-max 98.8, pulse 89-180, respirations 16, blood pressure 161/63, O2 saturation 97% on BiPAP. PHYSICAL EXAMINATION: General: Mildly agitated initially but later settled down, ill-appearing. Vital Signs: As above. HEENT: Normocephalic, atraumatic. On BiPAP. No cervical adenopathy. Cardiovascular: Tachycardic but regular. No murmurs noted. Pulmonary: Moderately decreased air entry throughout persists. No further wheezing. Abdomen: Soft, nontender, nondistended. Bowel sounds positive. Extremities: Peripheral pulses intact. No clubbing or cyanosis. right upper arm edematous Neurologic: Examination limited by the patient's mental status. Opens eyes to voice but not really following commands this morning. No purposeful movements but occasional nonpurposeful spontaneous movements of all extremities noted. Pupils equal, round, and reactive to light. Psychiatric: The patient is encephalopathic but does arouse slightly to voice and noxious stimuli. Skin: No new rashes or lesions identified. ASSESSMENT AND PLAN: 1. Acute hypoxic and hypercarbic respiratory failure, chronic obstructive pulmonary disease exacerbation, pneumonia. The patient's hypercapnia has essentially resolved. Likely at or near baseline at this point as far as that goes. Still requiring some oxygen, although this is also somewhat improved. She was placed back on BiPAP this morning when she had her episode of supraventricular tachycardia but appears likely to be able to wean back off BiPAP rapidly. Continue breathing treatments, antibiotics with Rocephin and azithromycin and intravenous steroids. Continue to monitor closely in the intensive care unit. 2. Likely pneumonia. Continue antibiotics as above and monitor. 3. Acute kidney injury on chronic kidney disease 3. Creatinine essentially back to baseline at this point. Changing intravenous fluids as below and monitor. 4. Hypernatremia, likely secondary to fluid administration. We will change fluids to half-normal saline and monitor. 5. Metabolic encephalopathy, likely related to acute illness and possibly underlying dementia. Monitor for now but we will consider brain imaging if encephalopathy continues to persist. 6. Adult failure to thrive. Continue to monitor. We will consider placing a nasogastric tube and tube feeds if the patient does not wake up enough to begin eating tomorrow. 7. Right arm edema: obtained ultrasound showing superficial(basilic) vein thrombosis. will place on low dose blood thinner(lovenox). [facility]ITALDouglas
[2019-01-27] MEDS: ROCEPHIN 1 GM in NS 50 ML IV SCH (17:27)
[2019-01-27] MEDS: ZITHROMAX 500 MG/NS 500 MG/250 ML IVPB IV SCH (20:14)
[2019-01-28] MEDS: DUONEB (A & A) INH SCH ×4 (03:23→15:37)
[2019-01-28 04:25] LABS: BLOOD TYPE ARTERIAL; SAMPLE BLOOD
[2019-01-28 04:26] LABS: ALLEN TEST YES; BE 8.4 mmoll (-3.0-3.0); HCO3-(ACT) 31.5 mmoll (20.0-26.0); O2HB 96.2 % (95.0-99.0); PCO2(98.6) 48 mmHg (35-45); PO2(98.6) 145 mmHg (60-100); THB 9.4 g/dL (11.5-17.4); pH(98.6) 7.45 (7.35-7.45)
[2019-01-28 04:37] LABS: MODALITY VENTIMASK
[2019-01-28 05:54] LABS: BASO# 0.01 X1000 (0.0-0.2); BASO% 0.1 % (0.0-0.8); HEMATOCRIT 29.4 % (37.0-47.0); HEMOGLOBIN 8.7 g/dL (12.0-16.0); IMM GRAN# 0.29 X1000 (0.0-0.04); LYMPH% 3.1 % (20.5-51.1); MCH 29.9 PG (27-31); MCHC 29.6 g/dL (33-37); MONO# 0.44 X1000 (0.11-0.59); MONO% 4.5 % (1.7-9.3); MPV 9.3 FL (7.4-10.4); NEUT# 8.79 X1000 (1.4-6.5); NEUT% 89.3 % (42.2-75.2); PLT 214 X1000 (130-400); RBC 2.91 XMIL (4.2-5.4); RDW 13.4 % (11.5-14.5); WBC 9.83 X1000 (4.8-10.8)
[2019-01-28 06:11] LABS: AGAP 9; BUN 38 mg/dL (8-22); CALCIUM 8.9 mg/dL (8.8-10.2); CHLORIDE 114 mmol/L (98-107); COSMO 319; CREATININE 0.9 mg/dL (0.5-0.9); ESTIMATED GFR > 60; GLUCOSE 172 mg/dL (70-104); POTASSIUM 3.8 mmol/L (3.5-5.1); SODIUM 154 mmol/L (136-145); TCO2 31 mmol/L (25-35)
[2019-01-28 06:48] LABS: LYMPHS 4 % (21-51); SEGS 94 % (42-75)
[2019-01-28] MEDS: ATIVAN IV PRN ×4 (07:53→23:21)
[2019-01-28] MEDS: MORPHINE IV PRN ×4 (07:53→23:21)
--- NOTE | 2019-01-28 08:13 | Diag Imaging Result Doc PS360 ---
EXAM: CHEST-PORTABLE - 01/28/2019 HISTORY: VENT TECHNIQUE: Portable chest COMPARISON: 01/27/2019 FINDINGS: There is been interval insertion of PICC from the left. The tip of the PICC is at the expected location of the distal superior vena cava near the caval atrial junction. There is left lower lung infiltrate which appears stable to slightly decreased. There are no other interval changes identified. IMPRESSION: Tip of PICC at distal superior vena cava near caval atrial junction. Stable to slightly decreased left lower lung infiltrate, suspicious for pneumonia. Electronically signed by Reese Lala 01/28/2019 8:11 AM
[2019-01-28] MEDS: SODIUM CHLORIDE 0.9% INJ SCH (08:19)
[2019-01-28] MEDS: NS IV SCH ×2 (08:19→21:14)
[2019-01-28] MEDS: DEPACON IV SCH ×2 (08:19→21:14)
[2019-01-28] MEDS: SOLU-MEDROL IV SCH ×2 (08:19→21:12)
[2019-01-28] MEDS: 1/2 NS 1,000 ML IV SCH ×3 (08:20→21:14)
[2019-01-28] MEDS: PROTONIX IV SCH (08:20)
[2019-01-28] MEDS: CARDIZEM 125/NS 125 MG/125 ML IVPB IV SCH (09:19)
[2019-01-28] MEDS: APRESOLINE IV PRN (12:07)
[2019-01-28] MEDS: LOVENOX SUBQ SCH (14:58)
[2019-01-28] MEDS: HALDOL IV PRN ×2 (15:02→22:00)
--- NOTE | 2019-01-28 15:39 | PROGRESS NOTE ---
DATE: 01/28/2019 INTERVAL HISTORY: The patient's heart rate remained controlled on diltiazem drip. Had some agitation overnight and remains quite confused, but somewhat more awake and alert. No other acute events overnight. REVIEW OF SYSTEMS: Unable to obtain secondary to patient's mental status. LABS: WBC 9.8, hemoglobin 8.7, hematocrit 29.4, platelets 214,000. ABG with pH 7.45, pCO2 48, PO2 145, O2 sat 98% on 50% Ventimask. Sodium 154, potassium 3.8, bicarb 31, BUN 38, creatinine 0.9, glucose 172.. IMAGING: Chest x-ray with stable to slightly improved left lower lung infiltrate. PICC line in position. VITALS: T-max 98.8, pulse 82, respirations 13, blood pressure 109/71, O2 saturation 97% on 50% FiO2. PHYSICAL EXAMINATION: General: No acute distress. Ill-appearing. Vitals: As above. HEENT: Normocephalic, atraumatic. No cervical adenopathy. Cardiovascular: Regular rate and rhythm. No murmurs noted. Pulmonary: Moderately decreased air entry throughout. Scattered rhonchi, but no further wheezing. Abdomen: Soft, nontender, nondistended. Bowel sounds positive. Extremities: Peripheral pulses intact. No clubbing or cyanosis. Right arm edema stable to slightly improved. Neurologic: Limited by patient's mental status. Opens eyes to voice, but does not track or follow commands. Occasional nonpurposeful movement of all extremities noted. Pupils equal, round, reactive to light. Psychiatric: Patient arouses to voice and will occasionally open eyes and look around spontaneously, but does not follow commands or track with eyes. Skin: No new rashes or lesions identified. ASSESSMENT AND PLAN: 1. Acute hypoxic and hypercarbic respiratory failure, chronic obstructive pulmonary disease exacerbation, pneumonia. Patient's hypercapnia much improved, likely at or near baseline at this point. Still requiring oxygen. This is also somewhat improved from admission. No longer requiring BiPAP. Continue breathing treatments. Antibiotics were Rocephin, azithromycin and steroids. 2. Pneumonia. Continue antibiotics as above. Monitor. Patient afebrile. 3. Acute kidney injury on CKD 2. Creatinine marginally improved with fluids. Actually, better than what I suspected her baseline to be. Continue to monitor. 4. Hyponatremia. Still high despite change to half-normal saline yesterday. Will increase half- normal saline and monitor. 5. Metabolic encephalopathy likely related to acute illness and possibly underlying dementia. Does appear to be arousing slowly, although she remains quite cephalopathic. Continue to treat underlying conditions and will consider brain imaging if encephalopathy does not continue to improve. 6. Adult failure to thrive. Continue to monitor. She is waking up some more. Will try to feed her some liquids. If this is unsuccessful, then we will likely need to place a nasogastric tube and start tube feeds in the next day or so. 7. Right upper extremity superficial vein thrombosis. Patient with right arm swelling yesterday. Ultrasound showing basilic vein thrombosis. Placed on low-dose blood thinner. Continue monitoring. 8. Code status. There was a conversation with family about the code status. They continue to want all conservative measures done, but do not wish the patient to undergo CPR or intubation. Will place order for DNR.
[2019-01-28] MEDS: ROCEPHIN 1 GM in NS 50 ML IV SCH (16:30)
[2019-01-28] MEDS ORDERED: NS NEB INH SCH (17:00)
[2019-01-28] MEDS: XOPENEX NEB INH SCH ×2 (19:25→23:25)
[2019-01-28] MEDS: ZITHROMAX 500 MG/NS 500 MG/250 ML IVPB IV SCH (19:33)
[2019-01-29] MEDS: XOPENEX NEB INH SCH ×5 (03:07→19:20)
[2019-01-29 04:42] LABS: ALLEN TEST YES; BE 7.5 mmoll (-3.0-3.0); BLOOD TYPE ARTERIAL; HCO3-(ACT) 30.8 mmoll (20.0-26.0); O2(CT) 11.1 mL/dL (15.0-23.0); O2HB 97.8 % (95.0-99.0); PO2(98.6) 104 mmHg (60-100); SAMPLE BLOOD; SAO2 99.3 % (95.0-100.0); THB 7.9 g/dL (11.5-17.4); pH(98.6) 7.35 (7.35-7.45)
[2019-01-29 04:43] LABS: MODALITY VENTIMASK; PCO2(98.6) 62 mmHg (35-45)
[2019-01-29] MEDS: MORPHINE IV PRN ×4 (06:17→22:39)
[2019-01-29] MEDS: ATIVAN IV PRN (06:17)
[2019-01-29 06:29] LABS: BASO# 0.02 X1000 (0.0-0.2); BASO% 0.2 % (0.0-0.8); EOS# 0.13 X1000 (0.0-0.7); EOS% 1.1 % (0.0-10.0); HEMOGLOBIN 9.6 g/dL (12.0-16.0); IMM GRAN# 0.03 X1000 (0.0-0.04); IMM GRAN% 0.2 % (0.0-0.5); LYMPH# 2.37 X1000 (1.2-3.4); LYMPH% 19.1 % (20.5-51.1); MCH 29.9 PG (27-31); MCHC 33.1 g/dL (33-37); MCV 90.3 FL (81-99); MONO% 11.3 % (1.7-9.3); MPV 14.4 FL (7.4-10.4); NEUT# 8.43 X1000 (1.4-6.5); NEUT% 68.1 % (42.2-75.2); PLT 187 X1000 (130-400); RBC 3.21 XMIL (4.2-5.4); RDW 14.7 % (11.5-14.5); WBC 12.38 X1000 (4.8-10.8)
[2019-01-29 07:05] LABS: CALCIUM 8.8 mg/dL (8.8-10.2); POTASSIUM 3.8 mmol/L (3.5-5.1)
[2019-01-29] MEDS: CARDIZEM 125/NS 125 MG/125 ML IVPB IV SCH (07:57)
[2019-01-29] MEDS: PROTONIX IV SCH (08:13)
[2019-01-29] MEDS: SOLU-MEDROL IV SCH (08:13)
[2019-01-29] MEDS: SODIUM CHLORIDE 0.9% INJ SCH (08:13)
[2019-01-29] MEDS: NS IV SCH ×2 (08:14→20:43)
[2019-01-29] MEDS: DEPACON IV SCH ×2 (08:14→20:43)
--- NOTE | 2019-01-29 08:27 | Diag Imaging Result Doc PS360 ---
EXAM: CHEST-PORTABLE INDICATION: NGT placement TECHNIQUE: One view COMPARISON: 01/28/2019 FINDINGS: The newly placed NG tube projects well below the diaphragm and is assumed to be in the lumen of the stomach in expected position. The left PICC line is stable. The lungs are overexposed due to focus on the NG tube. The left lower lobe infiltrate seen previously is difficult to visualize due to overexposure. IMPRESSION: Interval placement of NG tube in expected position as described. Electronically signed by David Rust 01/29/2019 8:25 AM
[2019-01-29] MEDS: CARDIZEM NG SCH ×3 (08:57→20:38)
[2019-01-29] MEDS: HALDOL IV PRN ×2 (10:05→20:38)
--- NOTE | 2019-01-29 10:44 | PROGRESS NOTE ---
DATE: 01/29/2019 Overnight patient was agitated. She was on BiPAP and she had received intravenous morphine and lorazepam. While she was agitated, her heart rate would jump up to 160 and she would become hypertensive. At the time of my evaluation; however, she is sedated and does not appear agitated. She opens eyes to strong verbal command but does not respond appropriately or contribute meaningfully to the history. VITAL SIGNS: Currently temperature 97.2 degrees, pulse rate 88, respiratory rate 17, blood pressure 147/80, saturating 97% on Venturi mask. GENERAL: She has been switched from BiPAP to Venturi mask. At the time of my evaluation, does not appear to be in any acute distress. HEENT: She appears to have bilateral equal reaction to light. She has bilateral conjunctival edema. She does not have any pallor, cyanosis, clubbing or icterus. LUNGS: Air entry bilateral equal. No wheezing, crackles. CARDIAC: S1, S2 normal. Tachycardic. No murmurs, rubs or gallops. Her heart rate at the time of my evaluation is 99 per minute. ABDOMEN: Soft, nontender. EXTREMITIES: No lower extremity edema. She has a urine catheter. She has good bilateral upper extremity strength. LABS: Suggestive of mild leukocytosis. Normocytic anemia. Normal platelet count. Hypercarbia. Hypernatremia. Hyperchloremia. Chronic kidney disease stage 3. Microbiology, sputum and blood culture have not shown any growth to date. IMAGING: Was performed after the NG tube placement which had appropriate position of NG tube. ASSESSMENT AND PLAN: 1. Acute hypoxic hypercarbic respiratory failure due to left lower lobe pneumonia related to acute COPD exacerbation requiring intubation on admission. Now on Venturi mask which she has been tolerating reasonably well. Continue oxygenation through BiPAP and Venturi mask as tolerated. Continue levalbuterol nebulization every 4 hours, intravenous ceftriaxone and erythromycin. For pneumonia, decrease steroid dosing. 2. Acute metabolic encephalopathy in the setting of underlying dementia with frequent episodes of agitation. Continue to address underlying condition and modify antianxiety medication to intravenous morphine and intravenous haloperidol. 3. Hypernatremia, hyperchloremia and poor p.o. intake because of acute encephalopathy. Introduce NG tube and start patient on tube feeds and I will add free water flushes. 4. Regular supraventricular tachycardia with heart rate of 190 with prior history of atrial fibrillation. Continue intravenous Diltiazem drip. I will start patient on Diltiazem through NG tube eventually. If she is able to keep the NG tube down, I will start the Diltiazem drip and adjust p.o. Diltiazem dose according to her response. 5. Other issues including acute kidney injury and chronic kidney disease stage 2 to stage 3, sepsis, have resolved. Continue enoxaparin prophylaxis dose for right upper extremity superficial vein thrombosis and DVT prophylaxis. DISPOSITION: The patient continues to remain inside the hospital, her code status is DNR level 1. More than 30 minutes of critical care time was spent in taking care of this patient. cc: Raji Greenwood MD
[2019-01-29] MEDS ORDERED: HALDOL IV ONE (13:02)
[2019-01-29] MEDS: LOVENOX SUBQ SCH (13:29)
[2019-01-29] MEDS ORDERED: MORPHINE IV ONE (13:45)
--- NOTE | 2019-01-29 13:45 | CARDIOLOGY PROGRESS NOTE ---
DATE: 01/29/2019 PROBLEM LIST: 1. Supraventricular tachycardia. 2. Pneumonia. 3. The patient is do not resuscitate. 4. Acute hypoxic hypercarbic respiratory failure. 5. Chronic obstructive pulmonary disease exacerbation. 6. Metabolic encephalopathy. 7. Hyponatremia. 8. Renal insufficiency. 9. The patient agitated was on a BiPAP. Had received intravenous morphine and lorazepam. Does not respond appropriately. PHYSICAL EXAMINATION: Vital Signs: Blood pressure 147/80, pulse 88. First and second heart sounds were heard. Respiratory System: Bibasilar wheeze scattered. Abdomen is soft. RECOMMENDATIONS: 1. From a cardiac standpoint, we will discontinue the Cardizem drip which was for her supraventricular tachycardia. We will put her on Cardizem p.o. 60 mg 3 times a day via NG. F 2. Or pneumonia continue with her IV antibiotics 3. She is sedated. She has agitations. Continue with medications as planned. Thank you for the consult. We will follow hospital course. cc: Nj Engel MD
[2019-01-29] MEDS: SEROQUEL NG SCH ×2 (14:01→20:38)
[2019-01-29] MEDS: ROCEPHIN 1 GM in NS 50 ML IV SCH (16:48)
[2019-01-29] MEDS: ZITHROMAX 500 MG/NS 500 MG/250 ML IVPB IV SCH (20:43)
[2019-01-30] MEDS: HALDOL IV PRN (01:35)
[2019-01-30] MEDS: CARDIZEM NG SCH ×5 (01:36→21:18)
[2019-01-30] MEDS: XOPENEX NEB INH SCH ×3 (03:15→07:53)
[2019-01-30] MEDS: MORPHINE IV PRN ×2 (03:36→13:56)
[2019-01-30] MEDS: APRESOLINE IV PRN ×2 (04:00→13:43)
[2019-01-30 04:45] LABS: ALLEN TEST YES; BE 6.8 mmoll (-3.0-3.0); BLOOD TYPE ARTERIAL; HCO3-(ACT) 30.3 mmoll (20.0-26.0); METHB 0.1 % (0.0-1.5); O2(CT) 15.9 mL/dL (15.0-23.0); O2HB 97.7 % (95.0-99.0); PO2(98.6) 138 mmHg (60-100); SAMPLE BLOOD; SAO2 98.2 % (95.0-100.0); THB 11.4 g/dL (11.5-17.4); pH(98.6) 7.36 (7.35-7.45)
[2019-01-30 04:46] LABS: MODALITY BI PAP
[2019-01-30 04:47] LABS: PCO2(98.6) 60 mmHg (35-45)
[2019-01-30] MEDS ORDERED: ATIVAN IV ONE (05:01)
[2019-01-30 06:42] LABS: CREATININE 1.1 mg/dL (0.5-0.9); POTASSIUM 3.8 mmol/L (3.5-5.1)
[2019-01-30 07:13] LABS: MAGNESIUM 2.4 mg/dL (1.5-2.7); PHOSPHORUS 2.9 mg/dL (2.7-4.5)
--- NOTE | 2019-01-30 07:16 | EKG Report ---
Test Performed on : 01/30/2019 06:55:10 AM Test Reason : Follow up QTc Blood Pressure : / mmHG Vent. Rate : 127 BPM Atrial Rate : 127 BPM P-R Int : 124 ms QRS Dur : 066 ms QT Int : 316 ms P-R-T Axes : 077 030 060 degrees QTc Int : 459 ms Sinus tachycardia. with occasional premature ventricular complexes. Low voltage QRS Borderline ECG When compared with ECG of 27-JAN-2019 00:28, Vent. rate has decreased BY [address] no longer depressed in Inferior leads ST no longer depressed in Anterior leads Nonspecific T wave abnormality no longer evident in Lateral leads Confirmed by Jorgito WALLACE, Gustavo Perez ([id number]) on 01/30/2019 10:57:32 AM
[2019-01-30 07:17] LABS: BASO# 0.02 X1000 (0.0-0.2); BASO% 0.1 % (0.0-0.8); HEMATOCRIT 29.8 % (37.0-47.0); HEMOGLOBIN 8.8 g/dL (12.0-16.0); IMM GRAN# 0.48 X1000 (0.0-0.04); IMM GRAN% 2.9 % (0.0-0.5); LYMPH# 0.51 X1000 (1.2-3.4); LYMPH% 3.1 % (20.5-51.1); MCH 29.8 PG (27-31); MCHC 29.5 g/dL (33-37); MONO# 0.95 X1000 (0.11-0.59); MONO% 5.7 % (1.7-9.3); MPV 9.7 FL (7.4-10.4); NEUT# 14.73 X1000 (1.4-6.5); NEUT% 88.2 % (42.2-75.2); PLT 285 X1000 (130-400); RBC 2.95 XMIL (4.2-5.4); RDW 13.1 % (11.5-14.5); WBC 16.69 X1000 (4.8-10.8)
[2019-01-30 07:39] LABS: PREALBUMIN 19.9 mg/dL (20-40)
[2019-01-30] MEDS: ATIVAN NG SCH ×3 (07:45→21:18)
[2019-01-30] MEDS ORDERED: SOLU-MEDROL IV SCH (08:30)
[2019-01-30] MEDS: DEPAKOTE SPRINKLE NG SCH ×2 (08:42→21:18)
[2019-01-30] MEDS: SEROQUEL NG SCH ×2 (08:43→21:18)
[2019-01-30] MEDS: PREDNISONE NG SCH (08:43)
[2019-01-30] MEDS: PROTONIX IV SCH (08:43)
--- NOTE | 2019-01-30 10:29 | PROGRESS NOTE ---
DATE: 01/30/2019 INTERVAL HISTORY: The patient has had multiple episodes of agitation and anxiety overnight. Whenever she would become agitated, her blood pressure would shoot up to 200 systolic and heart rate would jump to 160. She received multiple intravenous medications to calm her down. In the morning time at the time of my evaluation at bedside also, she is frequently agitated, which induces tachycardia episode which appears narrow complex on monitor. Yesterday, I had discussed her clinical course and prognosis with the patient's daughter. SUBJECTIVE: The patient has BiPAP mask on, and she does not appear alert. She does open eyes to verbal stimuli, but does not follow any commands. VITAL SIGNS: Currently vitals suggest temperature 97.1 degrees, pulse 108, respiratory rate 17, blood pressure 157/69, saturating 96% on 50% BiPAP. PHYSICAL EXAMINATION: General: She is frequently agitated. HEENT: She has bilateral conjunctival edema. Pupils are bilaterally equal, reacting to light. She does not have any pallor, cyanosis, clubbing, or icterus. Lungs: Air entry bilaterally equal. No wheeze, rhonchi or crackles. Cardiovascular: S1, S2 is normal. Tachycardic. Appears regular without any murmur, rub or gallop. Abdomen: Soft, nontender. Extremities: She does not have lower extremity edema. : She has a urine catheter. LABS: Suggestive of leukocytosis, normocytic anemia, normal platelet count. Her eosinophil count is zero suggestive of possibly steroid induced. She has hypercarbia with compensated pH. She continues to have hypernatremia, hyperchloremia, which is better than before. She has what appears to be chronic kidney disease stage III. She was started on tube feeds yesterday. IMAGING: Chest x-ray: Note no new chest x-ray. ASSESSMENT AND PLAN: 1. Acute hypoxic hypercarbic respiratory failure due to left lower lobe pneumonia related to acute chronic obstructive pulmonary disease exacerbation requiring intubation on admission. Now, continue to cycle BiPAP and Venturi mask as tolerated. Change nebulization to ipratropium considering her tachycardia, and continue intravenous ceftriaxone and azithromycin for pneumonia. Change steroids to oral steroids considering it might be contributing to her agitation. 2. Acute metabolic encephalopathy in the setting of hyperactive delirium on top of underlying dementia. Continue to address underlying condition and modify the pain regimen to include lorazepam through nasogastric tube as well as intravenous with intravenous morphine. Also, continue Seroquel. I will adjust the dose according to her response. 3. Regular supraventricular tachycardia with prior history of atrial fibrillation requiring diltiazem drip. Her tachycardia episodes are triggered by her agitation, which I will address as mentioned above. I also increased her diltiazem dose. Cardiology on board. I will appreciate recommendation in terms of further dose adjustment. 4. Hypernatremia, hyperchloremia on chronic kidney disease stage III, likely because of free water deficit. Increase free water flushes through nasogastric tube and continue nasogastric tube feeds as tolerated according to dietitian recommendations. 5. Her other issues, including acute kidney injury on chronic kidney disease stage III, sepsis, have been resolved. Continue enoxaparin for right upper extremity superficial vein thrombosis as well as deep vein thrombosis prophylaxis. DISPOSITION: I will continue to monitor patient in ICU considering her frequent supraventricular tachycardia episodes, and more than 30 minutes were spent in taking care of this critically ill patient. I had called the patient's daughter yesterday, and had discussed with her about the patient's clinical course, and had answered all of her questions. cc: Raji Greenwood MD
[2019-01-30] MEDS: ATROVENT NEB INH SCH ×4 (11:28→23:45)
[2019-01-30] MEDS: ATIVAN IV PRN ×2 (12:13→15:57)
--- NOTE | 2019-01-30 12:26 | Extremity Venous Study ---
PROCEDURE NAME: Venous U/S Bilateral Arms - 01/27/2019 PROCEDURE PERFORMED: Bilateral upper extremity venous duplex and color flow imaging study using the [employer] vivid D-9 ultrasound System with a 9 L-D transducer. REFERRING PHYSICIAN: Dr. Koko Duffy. SIZE MAKER: Franca Acuña RVT. PATIENT IDENTIFICATION: A 78-year-old female. INDICATIONS: Bilateral upper extremity edema suggestive of deep venous thrombosis. The patient has a PICC line involving the left upper extremity and also an IV in the left neck. FINDINGS: The right internal jugular vein was compressible and had flow through it. The right subclavian and axillary vein had flow through them without evidence of thrombus. The right brachial vein was compressible throughout its length. There was an acute superficial thrombosis involving the right basilic vein, medial aspect right arm. The cephalic vein was compressible throughout its length as was the small veins in the antecubital fossa and right forearm. The left internal jugular vein had flow through it. There was no evidence of thrombus. The left subclavian and axillary veins were compressible and had flow through them. The left brachial vein was compressible throughout its length. The superficial veins of the left upper extremity were compressible throughout their length. INTERPRETATION: Acute superficial venous thrombosis of the right basilic vein, medial right arm. There is no evidence of deep venous thrombosis in either upper extremity. cc: Francie Mendez MD
[2019-01-30] MEDS: LOVENOX SUBQ SCH (13:57)
[2019-01-30] MEDS: D5W 1,000 ML IV SCH (13:57)
[2019-01-30] MEDS: ROCEPHIN 1 GM in NS 50 ML IV SCH (17:18)
--- NOTE | 2019-01-30 20:28 | PULMONOLOGY PROGRESS NOTE ---
DATE: 01/30/2019 SUBJECTIVE: The patient opens her eyes to stimuli. She will not follow commands. She has mild work of breathing. OBJECTIVE: The patient has been afebrile for the last 24 hours. Blood pressure 164/71, heart rate 85, respiratory rate 15, oxygen saturation 99%. HEENT: Pupils are equal. Oropharynx is difficult to evaluate. The patient will not open her mouth. Neck is supple. Chest reveals prolonged expiratory phase with occasional rhonchi. Cardiac exam: S1, S2. Abdomen is soft, with good bowel sounds. Extremities reveal trace edema. LABORATORY DATA: White blood count 16.7, hemoglobin 8.8, platelet count 285,000. Arterial blood gas reveals a pH 7.36, pCO2 of 60, pO2 of 138 on BiPAP. Sodium 153, potassium 3.8, chloride 113, BUN 37, creatinine 1.1. DIAGNOSTIC DATA: Chest x-ray is overexposed, making it difficult to evaluate the left basilar infiltrate. IMPRESSION: A 78-year-old with: 1. Left lower lobe pneumonia. 2. Acute hypoxemic and hypercapnic respiratory failure. 3. Encephalopathy. 4. Hypernatremia. RECOMMENDATIONS: 1. Continue to cycle BiPAP at bedtime and p.r.n. for hypoxemic and hypercapnic respiratory failure. 2. Continue current antibiotic regimen. 3. Continue bronchial hygiene. 4. We will initiate D5W for hypernatremia. 5. Overall prognosis is poor. Surrogate forms have been signed, and if she has a cardiac or pulmonary event, she will be allowed to have a natural . cc: Keith Hager MD
[2019-01-30] MEDS: ZITHROMAX 500 MG/NS 500 MG/250 ML IVPB IV SCH (21:18)
[2019-01-31] MEDS: MORPHINE IV PRN ×3 (02:02→16:53)
[2019-01-31] MEDS: CARDIZEM NG SCH ×4 (02:03→20:07)
[2019-01-31] MEDS: ATROVENT NEB INH SCH ×6 (03:45→23:20)
[2019-01-31] MEDS: ATIVAN IV PRN ×2 (04:09→17:31)
[2019-01-31 04:56] LABS: ALLEN TEST YES; BE 10.1 mmoll (-3.0-3.0); BLOOD TYPE ARTERIAL; HCO3-(ACT) 32.8 mmoll (20.0-26.0); O2(CT) 12.8 mL/dL (15.0-23.0); O2HB 97.8 % (95.0-99.0); PO2(98.6) 138 mmHg (60-100); SAMPLE BLOOD; SAO2 98.5 % (95.0-100.0); THB 9.1 g/dL (11.5-17.4); pH(98.6) 7.43 (7.35-7.45)
[2019-01-31 04:57] LABS: PCO2(98.6) 54 mmHg (35-45)
[2019-01-31 04:57] LABS: HEMOGLOBIN 8.7 g/dL (12.0-16.0); MCH 29.9 PG (27-31); MCV 99.7 FL (81-99); MPV 9.7 FL (7.4-10.4); RBC 2.91 XMIL (4.2-5.4); RDW 13.2 % (11.5-14.5); WBC 18.11 X1000 (4.8-10.8)
[2019-01-31 04:58] LABS: MODALITY VENTIMASK
[2019-01-31 05:15] LABS: MAGNESIUM 2.2 mg/dL (1.5-2.7); PHOSPHORUS 2.1 mg/dL (2.7-4.5)
[2019-01-31 05:17] LABS: AGAP 10; ALKALINE PHOSPHATASE 65 U/L (32-104); BUN 30 mg/dL (8-22); CHLORIDE 108 mmol/L (98-107); COSMO 308; CREATININE 0.8 mg/dL (0.5-0.9); ESTIMATED GFR > 60; GLUCOSE 229 mg/dL (70-104); GOT 28 U/L (10-30); GPT 33 U/L (10-36); POTASSIUM 3.8 mmol/L (3.5-5.1); SODIUM 148 mmol/L (136-145); TCO2 30 mmol/L (25-35); TOTAL BILIRUBIN 0.21 mg/dL (0.20-1.00)
[2019-01-31] MEDS: D5W 1,000 ML IV SCH ×2 (05:20→21:00)
--- NOTE | 2019-01-31 07:21 | Diag Imaging Result Doc PS360 ---
EXAM: CHEST-PORTABLE 01/31/2019 HISTORY: respiratory failure TECHNIQUE: AP portable at 0518 COMMENT: There is blunting of the left costophrenic angle which was not apparent on 01/29/2019. The alveolar opacity over the left lower lobe has improved since 01/28/2019 and the lungs are generally better expanded. There is an NG tube with its tip below the diaphragm. There is a left-sided PICC line with its tip just above the right atrium. IMPRESSION: Improving pneumonia. Electronically signed by Sunny Shaw 01/31/2019 7:19 AM
[2019-01-31] MEDS: PROTONIX IV SCH (08:24)
[2019-01-31] MEDS: DEPAKOTE SPRINKLE NG SCH ×2 (08:24→20:09)
[2019-01-31] MEDS: ATIVAN NG SCH ×2 (08:25→20:07)
[2019-01-31] MEDS: PREDNISONE NG SCH (08:25)
[2019-01-31] MEDS: SEROQUEL NG SCH ×2 (08:25→20:08)
[2019-01-31] MEDS: HUMALOG SUBQ SCH ×3 (08:26→20:07)
[2019-01-31] MEDS: LOVENOX SUBQ SCH (14:49)
[2019-01-31] MEDS: ROCEPHIN 1 GM in NS 50 ML IV SCH (16:34)
[2019-01-31] MEDS ORDERED: ATIVAN IV ONE (18:24)
--- NOTE | 2019-01-31 18:43 | PROGRESS NOTE ---
DATE: 01/31/2019 INTERVAL HISTORY: She was started on D5 containing intravenous fluids for hyponatremia which was slowly improving. Yesterday her episodes of agitation had decreased and she required less frequent intravenous medications. SUBJECTIVE: She is opening eyes to strong verbal commands however does not engage in meaningful conversation. Does not appear in distress. VITALS: Temperature of 97.3 degrees, pulse 112, respiratory 23, blood pressure 122/60, saturating 93% on 50% Venturi mask. PHYSICAL EXAMINATION: Obese, not in any acute distress. She has bilateral conjunctival edema. Pupils have bilateral equal reacting to light. No pallor, cyanosis, clubbing or icterus. Air entry bilaterally equal. No wheeze, rhonchi, crackles. S1, S2 normal. Intermittent tachycardic but appears regular, exam without murmur, rub, or gallop.Abdomen: Soft, nontender. No lower extremity edema. She has a urine catheter. Neurologic: She is arousable to strong verbal stimuli and she followed commands like opening mouth and squeezing my finger. LABS: Suggestive of leukocytosis, anemia, compensated hypercarbic respiratory failure, hypernatremia, hyperchloremia which is improving. No positive culture data. IMAGING: Chest x-ray suggest improving pneumonia. ASSESSMENT AND PLAN: 1. Acute hypoxic hypercarbic respiratory failure due to left lower lobe pneumonia related to acute chronic obstructive pulmonary disease exacerbation requiring intubation initially and she was extubated on January 25. Her hypercarbia is compensated. Continue to cycle BiPAP and nasal cannula as tolerated. Her oxygenation is appropriate. Continue ipratropium nebulization and intravenous ceftriaxone and follow up CBC tomorrow. I stopped azithromycin and based on CBC my plan is to stop ceftriaxone soon. Her leukocytosis could be related to steroid use and I will taper it off quickly. 2. Acute metabolic encephalopathy in the setting of hyperactive delirium on top of underlying dementia. Continue to address underlying medical conditions and continue p.r.n. lorazepam and morphine with Seroquel. 3. Regular supraventricular tachycardia episodes intermittently requiring diltiazem drip. Her tachycardia episodes trigger with her agitation. I will continue current dose of diltiazem through NG tube. 4. Hyponatremia, hyperchloremia and chronic kidney disease stage 2 to stage 3 currently appears stable. Continue D5 water as recommended by oenologist for another 24 hours and based on her labs will consider discontinuing later on . 5. Her acute kidney injury on chronic kidney disease stage 2, sepsis have resolved. Continue enoxaparin for DVT prophylaxis. 6. Disposition. I will continue to monitor patient in ICU for 1 more day and consider transfer to [facility] tomorrow. Plan of care was discussed with patient's daughter on phone yesterday and her code status has been changed to do not resuscitate level 1 after looks like discussion with daughter by oenologist. cc: Raji Greenwood MD MTDD
[2019-02-01] MEDS: MORPHINE IV PRN ×5 (02:22→21:11)
[2019-02-01] MEDS: ATIVAN IV PRN ×3 (02:48→23:04)
[2019-02-01] MEDS: CARDIZEM NG SCH ×4 (02:48→20:40)
[2019-02-01] MEDS: HUMALOG SUBQ SCH ×4 (02:49→20:40)
[2019-02-01] MEDS: ATROVENT NEB INH SCH ×6 (03:10→23:35)
[2019-02-01] MEDS ORDERED: MORPHINE IV ONE ×2 (03:15→03:17)
[2019-02-01 04:26] LABS: ALLEN TEST YES; BE 11.5 mmoll (-3.0-3.0); BLOOD TYPE ARTERIAL; HCO3-(ACT) 33.9 mmoll (20.0-26.0); METHB 0.2 % (0.0-1.5); O2(CT) 7.2 mL/dL (15.0-23.0); O2HB 95.5 % (95.0-99.0); PO2(98.6) 67 mmHg (60-100); SAMPLE BLOOD; SAO2 96.2 % (95.0-100.0); THB 5.3 g/dL (11.5-17.4); pH(98.6) 7.46 (7.35-7.45)
[2019-02-01 04:36] LABS: MODALITY VENTIMASK; PCO2(98.6) 51 mmHg (35-45)
[2019-02-01 05:47] LABS: BASO# 0.02 X1000 (0.0-0.2); BASO% 0.1 % (0.0-0.8); EOS# 0.01 X1000 (0.0-0.7); EOS% 0.1 % (0.0-10.0); HEMATOCRIT 25.9 % (37.0-47.0); IMM GRAN# 0.27 X1000 (0.0-0.04); IMM GRAN% 1.9 % (0.0-0.5); LYMPH# 0.67 X1000 (1.2-3.4); LYMPH% 4.7 % (20.5-51.1); MCH 30.1 PG (27-31); MCHC 30.9 g/dL (33-37); MCV 97.4 FL (81-99); MONO# 0.72 X1000 (0.11-0.59); MONO% 5.1 % (1.7-9.3); MPV 9.5 FL (7.4-10.4); NEUT# 12.53 X1000 (1.4-6.5); NEUT% 88.1 % (42.2-75.2); PLT 197 X1000 (130-400); RBC 2.66 XMIL (4.2-5.4); RDW 12.8 % (11.5-14.5); WBC 14.22 X1000 (4.8-10.8)
[2019-02-01 05:57] LABS: AGAP 8; ALB/GLOB RATIO 1.1; ALBUMIN 2.6 g/dL (3.5-5.0); ALKALINE PHOSPHATASE 58 U/L (32-104); BUN 25 mg/dL (8-22); CALCIUM 8.7 mg/dL (8.8-10.2); CHLORIDE 104 mmol/L (98-107); COSMO 294; CREATININE 0.8 mg/dL (0.5-0.9); ESTIMATED GFR > 60; GLUCOSE 180 mg/dL (70-104); GOT 29 U/L (10-30); GPT 31 U/L (10-36); POTASSIUM 3.8 mmol/L (3.5-5.1); SODIUM 143 mmol/L (136-145); TCO2 31 mmol/L (25-35)
[2019-02-01 05:58] LABS: MAGNESIUM 1.8 mg/dL (1.5-2.7); PHOSPHORUS 2.2 mg/dL (2.7-4.5)
[2019-02-01] MEDS: PRILOSEC NG SCH (06:06)
--- NOTE | 2019-02-01 07:14 | PULMONOLOGY PROGRESS NOTE ---
DATE: 01/31/2019 SUBJECTIVE: The patient is arousable. She will not answer questions. She does have some soft moan during the examination. OBJECTIVE: Vital Signs: The patient has been afebrile for the last 24 hours. Blood pressure 102/51, heart rate 67, respiratory rate 19, oxygen saturation 97% on 50% FiO2. HEENT: Pupils are equal. Oropharynx appears clear. Neck is supple. Chest reveals prolonged expiratory phase with occasional rhonchi. Cardiac Examination: S1, S2. Abdomen is soft with positive bowel sounds. Extremities reveal trace edema. Laboratories: Chest x-ray reveals some mild improvement in the left lower lobe. Sodium 148, potassium 3.8, chloride 108, bicarbonate 31, BUN 30, creatinine 0.8, glucose 229. Arterial blood gas, pH 7.43, pCO2 of 54, PO2 of 138. IMPRESSION: A 78-year-old with: 1. Left lower lobe pneumonia. 2. Acute hypoxemic and acute hypercapnic respiratory failure. 3. Hypernatremia. 4. Encephalopathy. DISCUSSION: A 78-year-old with problems outlined above. Her hypernatremia and left lower lobe pneumonia are improving. She remains encephalopathic. RECOMMENDATIONS: 1. Continue D5W for hypernatremia. 2. Continue to cycle BiPAP at bedtime and p.r.n. for hypoxemic and hypercapnic respiratory failure. 3. Continue current antibiotic regimen. 4. Overall prognosis is poor. End of life discussions have been held and if she were to have a decline in her pulmonary or cardiac status, she would be allowed to have a natural . cc: Keith Hager MD
--- NOTE | 2019-02-01 07:15 | Diag Imaging Result Doc PS360 ---
EXAM: CHEST-PORTABLE 02/01/2019 HISTORY: respiratory failure TECHNIQUE: AP portable at 0534 COMMENT: There is some retrocardiac opacity which appears to have worsened somewhat since 01/31/2019. There is a small left pleural effusion. There is an NG tube with its tip below the diaphragm. IMPRESSION: Slightly worsened atelectasis or pneumonia left lower lobe. Left pleural effusion. Electronically signed by Sunny Shaw 02/01/2019 7:13 AM
[2019-02-01] MEDS: DEPAKOTE SPRINKLE NG SCH ×2 (08:03→20:43)
[2019-02-01] MEDS: ATIVAN NG SCH ×2 (08:03→20:40)
[2019-02-01] MEDS: MIRALAX NG SCH (08:03)
[2019-02-01] MEDS: SEROQUEL NG SCH ×2 (08:03→20:40)
[2019-02-01] MEDS: PREDNISONE NG SCH (08:03)
[2019-02-01] MEDS ORDERED: LASIX IV ONE (08:15)
[2019-02-01] MEDS: LEXAPRO PO SCH (08:38)
--- NOTE | 2019-02-01 10:10 | PROGRESS NOTE ---
DATE: 02/01/2019 INTERVAL HISTORY: Ms. Nuñez has had episodes of agitation requiring additional doses of intravenous lorazepam yesterday. Her heart rate would also jump up to 130 to 150 at the time of agitation. She was relatively hypoxic with PO2 of 67 on Venturi mask today for which I am giving her intravenous Lasix. SUBJECTIVE: She is much more alert at the moment. She answers simple questions. She tells me her name. She tells me her daughter's name. She tells me she is living in [place], however, does not contribute to medical history meaningfully. OBJECTIVE: Vitals: At the time of my evaluation, temperature of 98.1 degrees, pulse of 98, respiratory rate 25, blood pressure 104/74, saturating 96% on Venturi mask. General: She is fidgety. She is pulling her IV line overnight. She was pulling out her Venturi mask as well. Obese, fidgety and agitated. HEENT: Bilateral conjunctival edema. Pupils are reacting to light. No pallor, cyanosis, clubbing, or icterus. Lungs: Air entry bilaterally equal. No wheeze, rhonchi. However examination is limited because of her frequent movements. Cardiovascular: S1, S2 normal. Not tachycardic. Regular. No murmur, rub, or gallop. Abdomen: Soft, nontender. Active bowel sounds. Extremities: No lower extremity edema. She has urine catheter. She is alert. She opens eyes to verbal commands. She opens her mouth, but then again tries to come out of bed. LABORATORIES: Today suggestive of leukocytosis, normocytic anemia. Normal platelet count. She has what appears to be metabolic alkalosis and hypercarbia. Her PO2 is 67 on 35% Venturi mask. Hypernatremia and hyperchloremia have resolved. She appears to have pretty normal kidney function. Microbiology, no positive data. IMAGING: Chest x-ray performed today does detect slightly worsening atelectasis, pneumonia of left lower lobe and left-sided pleural effusion. ASSESSMENT AND PLAN: 1. Acute hypoxic hypercarbic respiratory failure due to left lower lobe pneumonia related to acute chronic obstructive pulmonary disease exacerbation requiring intubation, status post extubation on January 25. Her hypercarbia is compensated. I will continue to cycle BiPAP and Venturi mask as tolerated. Continue ipratropium nebulization, intravenous ceftriaxone and steroid taper. I would also give her intravenous Lasix dose considering her relative hypoxia today. 2. Acute encephalopathy in the setting of hyperactive hospital-acquired delirium on top of underlying dementia. I will continue p.r.n. lorazepam and morphine with Seroquel. I have added her home melatonin and citalopram. 3. Regular supraventricular tachycardia episodes, initially requiring diltiazem drip. Her tachycardia episodes coincide with her agitation episodes. I will continue to address underlying medical conditions and continue diltiazem. 4. Hypernatremia, hyperchloremia and acute kidney injury appear to be stable. I will discontinue D5 water considering they have resolved and give her a dose of Lasix. DISPOSITION: The patient continues to have episodes of agitation. However, she appears to be hemodynamically stable except episodes of supraventricular tachycardia. My plan will be to eventually transfer her to [facility] today or tomorrow. Her code status is Do Not Resuscitate Level 1. I called and informed her daughter today about her course and answered all of her questions. Eventually she would be discharged back to [facility]. cc: Raji Greenwood MD MTDD
[2019-02-01] MEDS: LOVENOX SUBQ SCH (14:27)
--- NOTE | 2019-02-01 16:23 | PULMONOLOGY PROGRESS NOTE ---
DATE: 02/01/2019 SUBJECTIVE: The patient will open her eyes to stimuli. She will not follow commands. She does not have increased work of breathing at rest. OBJECTIVE: Vital Signs: The patient has been afebrile for the last 24 hours. Blood pressure 104/56, heart rate 80, respiratory rate 11, oxygen saturation 99% on Venturi mask. HEENT: Pupils are equal. Oropharynx appears clear but dry. Neck: Supple. Chest: Reveals prolonged expiratory phase with scattered rhonchi. Cardiac: S1-S2. Abdomen: Soft. Extremities: Reveal trace to 1+ peripheral edema. LABORATORIES: Arterial blood gas reveals a pH of 7.46, pCO2 of 51, PO2 of 67. Sodium 143, potassium 3.8, chloride 104, bicarbonate 31, BUN 25, creatinine 0.8. Chest x-ray reveals left- sided pleural effusion with increased density at the left base. IMPRESSION: 78-year-old with 1. Acute hypoxemic and acute hypercapnic respiratory failure. 2. Left lower lobe pneumonia with small effusion. 3. Mild hypernatremia. 4. Delirium/encephalopathy. RECOMMENDATIONS: 1. Continue to cycle BiPAP at bedtime and p.r.n. 2. Continue antibiotics. 3. Continue bronchial hygiene. 4. Allow the patient to have a natural if she has a life-threatening cardiac or pulmonary event. cc: Keith Hager MD
[2019-02-01] MEDS: ROCEPHIN 1 GM in NS 50 ML IV SCH (17:59)
[2019-02-01] MEDS: MELATONIN PO SCH (20:40)
[2019-02-02] MEDS: MORPHINE IV PRN ×4 (00:54→23:43)
[2019-02-02] MEDS: ATIVAN IV PRN ×4 (02:43→23:43)
[2019-02-02] MEDS: HUMALOG SUBQ SCH ×4 (02:43→20:29)
[2019-02-02] MEDS: CARDIZEM NG SCH ×4 (02:43→20:28)
[2019-02-02] MEDS: ATROVENT NEB INH SCH ×6 (03:15→23:20)
[2019-02-02 04:48] LABS: ALLEN TEST YES; BLOOD TYPE ARTERIAL; HCO3-(ACT) 35.1 mmoll (20.0-26.0); O2(CT) 11.8 mL/dL (15.0-23.0); O2HB 95.8 % (95.0-99.0); PO2(98.6) 75 mmHg (60-100); SAMPLE BLOOD; SAO2 96.9 % (95.0-100.0); THB 8.7 g/dL (11.5-17.4); pH(98.6) 7.46 (7.35-7.45)
[2019-02-02 04:49] LABS: MODALITY COOL AEROSOL; PCO2(98.6) 54 mmHg (35-45)
[2019-02-02 05:53] LABS: AGAP 9; ALB/GLOB RATIO 1.2; ALBUMIN 3.1 g/dL (3.5-5.0); ALKALINE PHOSPHATASE 68 U/L (32-104); BUN 28 mg/dL (8-22); CALCIUM 9.1 mg/dL (8.8-10.2); CHLORIDE 99 mmol/L (98-107); COSMO 290; CREATININE 0.9 mg/dL (0.5-0.9); ESTIMATED GFR > 60; GLUCOSE 149 mg/dL (70-104); GOT 43 U/L (10-30); GPT 44 U/L (10-36); POTASSIUM 3.7 mmol/L (3.5-5.1); SODIUM 141 mmol/L (136-145); TCO2 33 mmol/L (25-35); TOTAL BILIRUBIN 0.27 mg/dL (0.20-1.00); TOTAL PROTEIN 5.7 g/dL (6.3-8.3)
[2019-02-02] MEDS: PRILOSEC NG SCH (05:59)
[2019-02-02 06:10] LABS: HEMATOCRIT 29.1 % (37.0-47.0); HEMOGLOBIN 9.2 g/dL (12.0-16.0); MCH 30.8 PG (27-31); MCHC 31.6 g/dL (33-37); MCV 97.3 FL (81-99); MPV 10.2 FL (7.4-10.4); RBC 2.99 XMIL (4.2-5.4); WBC 21.65 X1000 (4.8-10.8)
--- NOTE | 2019-02-02 07:04 | Diag Imaging Result Doc PS360 ---
EXAM: CHEST-PORTABLE HISTORY: respiratory failure TECHNIQUE: Portable chest single view COMPARISON: 02/01/2019 FINDINGS: No change in the nasogastric tube and left-sided PICC line. The lungs are well expanded except for atelectasis and/or infiltrates in the left base. Tiny left pleural effusion. Right lung is clear. IMPRESSION: Stable chest. Electronically signed by Harjinder Meade 02/02/2019 7:01 AM
[2019-02-02] MEDS: ATIVAN NG SCH ×3 (07:56→20:29)
[2019-02-02] MEDS: MIRALAX NG SCH ×2 (07:56→09:46)
[2019-02-02] MEDS: LEXAPRO PO SCH ×2 (07:56→09:48)
[2019-02-02] MEDS: SEROQUEL NG SCH ×4 (07:57→20:30)
[2019-02-02] MEDS: DEPAKOTE SPRINKLE NG SCH ×3 (07:58→20:28)
--- NOTE | 2019-02-02 09:08 | EKG Report ---
Test Performed on : 02/01/2019 6:48:36 PM Test Reason : HB Blood Pressure : / mmHG Vent. Rate : 105 BPM Atrial Rate : 105 BPM P-R Int : 170 ms QRS Dur : 068 ms QT Int : 344 ms P-R-T Axes : 074 017 041 degrees QTc Int : 454 ms Sinus tachycardia. Low voltage QRS Borderline ECG When compared with ECG of 01-FEB-2019 18:47, (Unconfirmed) premature atrial complexes. are no longer present Confirmed by Jorgito WALLACE, Gustavo Perez ([id number]) on 02/02/2019 9:28:54 AM
--- NOTE | 2019-02-02 09:50 | PROGRESS NOTE ---
DATE: 02/02/2019 INTERVAL HISTORY: No acute events overnight. SUBJECTIVE: The patient is awake, alert, not oriented. She follows simple commands like shaking head opening mouth. She is still in restraints. She states she wants to eat, however does not engage in clinical encounter meaningfully. OBJECTIVE: Vital Signs: Temperature 98.3 , respiratory rate 14, blood pressure 110/62, saturating 98 to 100 percent on 35% Venturi mask. General: Does not appear in any acute distress. She is fidgety. HEENT: Bilateral conjunctival edema. Pupils bilaterally equal reacting to light. No pallor, cyanosis, clubbing, or icterus. Lungs: Air entry bilaterally equal with inspiratory crackles in left infra axillary region. No wheeze or rhonchi. Cardiovascular: S1, S2 normal. Not tachycardic, currently heart rate of 98, regular. No murmur, rub, or gallop. Abdomen: Soft, nontender. Active bowel sounds. No lower extremity edema. She has urinary catheter. She also has a PICC line in her left arm. LABORATORY DATA: Labs today suggestive of persistent leukocytosis, normocytic anemia, normal platelet count. A pH of 7.4, pCO2 54 which appears compensated. Normal sodium and chloride. She does have elevated BUN. Blood glucoses are in acceptable range. No positive microbiological data. IMAGING: Chest x-ray suggests no change in the lung hussein except atelectasis and infiltrate in the left base, and tiny left pleural effusion. ASSESSMENT AND PLAN: 1. Acute hypoxic hypercarbic respiratory failure due to left lower lobe pneumonia and acute chronic obstructive pulmonary disease exacerbation initially requiring intubation status post extubation on 01/25/2019. Her hypercarbia is compensated. Continue to cycle BiPAP and Venturi mask as tolerated. Continue ipratropium nebulization, intravenous ceftriaxone. She has been off steroids since 02/01/2019. I will give her Lasix for her mild hypoxia. Her leukocytosis could be residual effect of steroids. My plan is to stop antibiotics in the next 24 to 48 hours, depending on her course. 2. Acute encephalopathy in the setting of hyperactive hospital-acquired delirium on top of underlying dementia. Continue to address underlying medical conditions. Continue p.r.n. lorazepam, p.r.n. morphine, and Seroquel with home melatonin and citalopram. 3. Regular supraventricular tachycardia episodes requiring diltiazem drip. Currently, tachycardia is well controlled on diltiazem through NG tube. Continue that. 4. Hyponatremia, hyperchloremia and acute kidney injury have resolved. 5. Nutrition. The patient has been on nasogastric tube feedings for a few days. I will start her on clear liquid diet. If she is able to tolerate that well, my plan is to discontinue nasogastric tube in the next 24 hours or so. DISPOSITION: The patient's clinical condition appears to have stabilized and I will consider transferring her out of ICU to a step-down unit today. Plan of care was discussed with the nursing team at bedside. I had called the patient's daughter yesterday and discussed with her about plan of care and answered all of her questions. cc: Raji Greenwood MD MTDD
[2019-02-02] MEDS: LASIX IV SCH ×2 (10:03→20:30)
[2019-02-02] MEDS: LOVENOX SUBQ SCH (14:11)
[2019-02-02] MEDS: ROCEPHIN 1 GM in NS 50 ML IV SCH (16:59)
[2019-02-02] MEDS ORDERED: ATIVAN IV ONE (18:16)
[2019-02-02] MEDS ORDERED: ATIVAN ONE (18:23)
[2019-02-02] MEDS: MELATONIN PO SCH (20:28)
[2019-02-03] MEDS: CARDIZEM NG SCH ×4 (02:30→22:02)
[2019-02-03] MEDS: HUMALOG SUBQ SCH ×4 (02:32→22:03)
[2019-02-03] MEDS: ATROVENT NEB INH SCH ×6 (03:05→23:15)
[2019-02-03 05:46] LABS: ALLEN TEST YES; BE 20.3 mmoll (-3.0-3.0); BLOOD TYPE ARTERIAL; HCO3-(ACT) 40.7 mmoll (20.0-26.0); METHB 0.2 % (0.0-1.5); O2HB 91.1 % (95.0-99.0); PO2(98.6) 56 mmHg (60-100); SAMPLE BLOOD; THB 9.3 g/dL (11.5-17.4)
[2019-02-03 05:50] LABS: MODALITY CANNULA; PCO2(98.6) 59 mmHg (35-45)
[2019-02-03 06:15] LABS: HEMOGLOBIN 9.2 g/dL (12.0-16.0); MCH 29.8 PG (27-31); MCHC 30.7 g/dL (33-37); MCV 97.1 FL (81-99); MPV 9.7 FL (7.4-10.4); RBC 3.09 XMIL (4.2-5.4); RDW 13.2 % (11.5-14.5); WBC 17.52 X1000 (4.8-10.8)
--- NOTE | 2019-02-03 06:33 | Diag Imaging Result Doc PS360 ---
CHEST-PORTABLE - 02/03/2019 INDICATION: respiratory failure COMPARISON: 02/02/2019 FINDINGS: Support lines and tubes are stable. Stable small left pleural effusion. Stable hazy infiltrate in the left lung base. No new infiltrates. Heart size remains top normal. IMPRESSION: No change from prior. Electronically signed by Ad Bhatt 02/03/2019 6:31 AM
[2019-02-03] MEDS: PRILOSEC NG SCH (06:43)
[2019-02-03 06:45] LABS: AGAP 9; ALBUMIN 3.2 g/dL (3.5-5.0); BUN 27 mg/dL (8-22); CALCIUM 9.2 mg/dL (8.8-10.2); CHLORIDE 91 mmol/L (98-107); COSMO 286; CREATININE 0.9 mg/dL (0.5-0.9); ESTIMATED GFR > 60; GLUCOSE 165 mg/dL (70-104); POTASSIUM 3.4 mmol/L (3.5-5.1); SODIUM 139 mmol/L (136-145); TCO2 39 mmol/L (25-35); TOTAL BILIRUBIN 0.26 mg/dL (0.20-1.00); TOTAL PROTEIN 5.8 g/dL (6.3-8.3)
[2019-02-03 06:46] LABS: ALB/GLOB RATIO 1.2; ALKALINE PHOSPHATASE 72 U/L (32-104); GOT 40 U/L (10-30); GPT 48 U/L (10-36)
[2019-02-03] MEDS ORDERED: KLOR-CON NG SCH (07:45)
[2019-02-03] MEDS: POTASSIUM CHLORIDE 20% LIQUID NG SCH ×2 (09:03→11:59)
[2019-02-03] MEDS: LEXAPRO PO SCH (09:04)
[2019-02-03] MEDS: ATIVAN NG SCH ×2 (09:04→22:03)
[2019-02-03] MEDS: DEPAKOTE SPRINKLE NG SCH ×2 (09:04→22:02)
[2019-02-03] MEDS: MIRALAX NG SCH (09:05)
[2019-02-03] MEDS: SEROQUEL NG SCH ×2 (09:05→22:03)
[2019-02-03] MEDS: MORPHINE IV PRN (10:09)
[2019-02-03] MEDS ORDERED: CARDIZEM IV ONE (10:10)
--- NOTE | 2019-02-03 10:59 | PROGRESS NOTE ---
DATE: 02/03/2019 INTERVAL HISTORY: Ms. Nuñez was transferred to the medical floor. Her potassium is currently being repleted. She pulled out her NG tube and I discussed with the nursing team about if she is able to eat and take medicine by mouth, is okay not to reintroduce it but otherwise we might have to reintroduce it. Her nasal cannula oxygen requirement had increased. SUBJECTIVE: She is alert. She is following simple commands. She tells me her name. She is not able to remember her daughter's name but when prompted, she is able to tell me. I discussed with her about her medical course. Answered simple questions. She is not oriented though. VITAL SIGNS: Temperature 98.4 degrees, pulse 117, respiratory rate 18, blood pressure 136/73, saturating 99% on 4 L nasal cannula. PHYSICAL EXAMINATION: General: Does not appear in any acute distress. No conjunctival edema today. Pupils are bilaterally equal, reacting to light. Oral cavity is moist. No pallor, cyanosis, clubbing, or icterus. Lungs: Air entry bilaterally equal with inspiratory crackles in bilateral infraaxillary region, which is improved. No wheeze or rhonchi. S1, S2 normal. Tachycardic. No murmur, rub, or gallop. Abdomen: Soft, nontender. Active bowel sounds. She has urine catheter. No lower extremity edema. She also has a PICC line in her left arm. Input and output suggest -1.8 L today in the last 24 hours. LABS: Suggestive of persistent leukocytosis, normocytic anemia, normal platelet count. ABG has hypercarbia but it appears to be related to metabolic alkalosis, which is well compensated. Hypokalemia which is being repleted. No new microbiological data. IMAGING: Chest x-ray performed today does not have any change from prior. She has stable left pleural effusion. ASSESSMENT AND PLAN: 1. Acute hypoxic, hypercarbic respiratory failure due to left lower lobe pneumonia and acute chronic obstructive pulmonary disease exacerbation, initially requiring intubation, status post extubation on January 25. Her hypercarbia is compensated. Continue nasal cannula oxygenation to maintain saturation more than 92% and wean down as tolerated. She has been off steroids since February 01, which could contribute to leukocytosis. I will follow up with CBC. My plan is to stop antibiotics in next 24 to 48 hours if her WBC shows a declining trend. 2. Acute encephalopathy in the setting of hyperactive hospital-acquired delirium on top of underlying dementia. Continue to address her medical conditions, and as needed lorazepam, as needed morphine and Seroquel with home melatonin and citalopram. 3. Episodes of regular supraventricular tachycardia requiring diltiazem drip in the intensive care unit. Currently, tachycardia is in acceptable range. Continue current dose of diltiazem. Her hypernatremia, hyperchloremia, and acute kidney injury during hospital admission have resolved. Her potassium is being repleted. 4. Nutrition. She has pulled out her nasogastric tube. We will continue clear liquid diet as she tolerates and we will reintroduce the nasogastric tube if she is not able to take medicines by mouth. 5. Disposition. I will continue to monitor in [facility]. Disposition is going to be a challenge, considering patient is requiring restraints. Otherwise, she will try to come out of bed, considering her baseline dementia. Eventually, she might need to be transferred to a fdc facility like a [facility] once she is off restraints. Plan of care discussed with the patient's team. I had previously called patient's daughter and informed her about her course. cc: Raji Greenwood MD
--- NOTE | 2019-02-03 12:48 | EKG Report ---
Test Performed on : 02/03/2019 10:17:54 AM Test Reason : Increased Heart Rate Blood Pressure : / mmHG Vent. Rate : 117 BPM Atrial Rate : 117 BPM P-R Int : 154 ms QRS Dur : 072 ms QT Int : 332 ms P-R-T Axes : 071 011 070 degrees QTc Int : 463 ms Sinus tachycardia. with premature atrial complexes. Otherwise normal ECG When compared with ECG of 01-FEB-2019 18:48, premature atrial complexes. are now present Nonspecific T wave abnormality no longer evident in Anterior leads Confirmed by Jorgito WALLACE, Gustavo Perez ([id number]) on 02/03/2019 3:01:38 PM
[2019-02-03] MEDS ORDERED: HALDOL IV PRN (12:49)
[2019-02-03] MEDS: LOVENOX SUBQ SCH (14:58)
[2019-02-03] MEDS: ROCEPHIN 1 GM in NS 50 ML IV SCH (17:34)
[2019-02-03] MEDS: MELATONIN PO SCH (22:03)
[2019-02-04] MEDS: CARDIZEM NG SCH ×4 (02:02→22:54)
[2019-02-04] MEDS: HUMALOG SUBQ SCH ×4 (02:03→22:51)
[2019-02-04] MEDS: ATROVENT NEB INH SCH ×6 (03:20→23:29)
[2019-02-04 05:13] LABS: ALLEN TEST YES; BE 19.2 mmoll (-3.0-3.0); BLOOD TYPE ARTERIAL; HCO3-(ACT) 39.9 mmoll (20.0-26.0); O2(CT) 11.3 mL/dL (15.0-23.0); O2HB 97.3 % (95.0-99.0); PO2(98.6) 99 mmHg (60-100); SAMPLE BLOOD; SAO2 98.6 % (95.0-100.0); THB 8.1 g/dL (11.5-17.4); pH(98.6) 7.52 (7.35-7.45)
[2019-02-04 05:16] LABS: MODALITY CANNULA; PCO2(98.6) 54 mmHg (35-45)
[2019-02-04 06:07] LABS: HEMATOCRIT 27.9 % (37.0-47.0); HEMOGLOBIN 8.5 g/dL (12.0-16.0); MCH 30.6 PG (27-31); MCHC 30.5 g/dL (33-37); MCV 100.4 FL (81-99); RBC 2.78 XMIL (4.2-5.4); RDW 13.6 % (11.5-14.5); WBC 14.64 X1000 (4.8-10.8)
[2019-02-04] MEDS: PRILOSEC NG SCH (06:07)
[2019-02-04 06:08] LABS: MPV 10.2 FL (7.4-10.4)
[2019-02-04 06:17] LABS: AGAP 10; ALB/GLOB RATIO 1.2; ALKALINE PHOSPHATASE 65 U/L (32-104); BUN 21 mg/dL (8-22); CHLORIDE 96 mmol/L (98-107); COSMO 288; CREATININE 0.9 mg/dL (0.5-0.9); ESTIMATED GFR > 60; GLUCOSE 102 mg/dL (70-104); GOT 30 U/L (10-30); GPT 37 U/L (10-36); POTASSIUM 3.7 mmol/L (3.5-5.1); SODIUM 143 mmol/L (136-145); TCO2 37 mmol/L (25-35); TOTAL BILIRUBIN 0.42 mg/dL (0.20-1.00); TOTAL PROTEIN 5.6 g/dL (6.3-8.3)
--- NOTE | 2019-02-04 07:33 | Diag Imaging Result Doc PS360 ---
EXAM: CHEST-PORTABLE INDICATION: respiratory failure TECHNIQUE: One view COMPARISON: 02/03/2019 FINDINGS: The left PICC line is in stable position. Small left effusion and adjacent groundglass infiltrate at the left lung base appears to have improved slightly. No new consolidation is identified. Cardiac silhouette is stable. IMPRESSION: Interval slight improvement. Electronically signed by David Rust 02/04/2019 7:30 AM
[2019-02-04] MEDS: DEPAKOTE SPRINKLE NG SCH ×2 (08:41→22:52)
[2019-02-04] MEDS: LEXAPRO PO SCH (08:41)
[2019-02-04] MEDS: ATIVAN NG SCH ×2 (08:41→22:52)
[2019-02-04] MEDS: SEROQUEL NG SCH ×2 (08:41→22:53)
[2019-02-04] MEDS: MIRALAX NG SCH (08:41)
--- NOTE | 2019-02-04 12:21 | PROGRESS NOTE ---
DATE: 02/04/2019 HOSPITAL COURSE SUMMARY: Ms. Nuñez was admitted for acute hypoxic respiratory failure because of pneumonia. She was sent from [facility]. In the emergency room, she was found to be unresponsive and was intubated. Since, she has been extubated. She is currently being treated for pneumonia. Her hospital course has been complicated by paroxysmal supraventricular tachycardia requiring diltiazem drip initially, and hyperactive delirium for which she has been on restraints. OVERNIGHT EVENTS: No acute overnight events. The patient did have episode of tachycardia yesterday, and after receiving diltiazem, she started getting better. She had pulled out her NG tube, but she was taking medicines by mouth, so it was not reintroduced again. SUBJECTIVE: The patient is sleepy, but easily arousable. She is able to tell me her name. Denies any other complaints. Her baseline mental status, according to the patient's daughter, is that she is alert, she is talking, and she follows simple commands in custodial. Though it is documented that she has dementia, according to daughter, the patient did have reasonable level of cognitive function. OBJECTIVE: Vital Signs: Temperature 97.9 degrees, pulse 109, respiratory rate 17, blood pressure 127/58, saturating 94% on 4 L nasal cannula. General: Does not appear in any acute distress. HEENT: Mild conjunctival edema. Pupils are equal, reacting to light. No pallor, cyanosis, clubbing, or icterus. Oral cavity is moist. Lungs: Air entry bilaterally equal with inspiratory crackles in bilateral infra-axillary region, which is improving. No wheeze or rhonchi. Heart: S1, S2 normal. Tachycardic. Appears regular on bedside monitor. No murmur, rub, or gallop. Abdomen: Soft, nontender. Active bowel sounds. Genitourinary: She has a urine catheter, and I asked to remove that. Extremities: No lower extremity edema. She also has a left-sided PICC line. LABORATORY DATA: Her CBC is trending down. She does have normocytic anemia. ABG is in acceptable range with hypercarbia, which is compensated. Almost normal electrolytes, and acceptable range of kidney function. MICROBIOLOGY: No new microbiological data. IMAGING: No new imaging, except chest x-ray, which suggests interval slight improvement on left- sided pleural effusion. ASSESSMENT AND PLAN: 1. Acute hypoxic hypercarbic respiratory failure due to left lower lobe pneumonia and acute chronic obstructive pulmonary disease exacerbation, initially requiring intubation, status post extubation on 01/25/2019. She has compensated hypercarbia now. Continue oxygenation through nasal cannula to maintain saturation more than 92%, and wean down as tolerated. She has been off steroids since 02/01/2019, which is contributing to leukocytosis, which is improving. My plan is to stop antibiotics tomorrow. 2. Acute encephalopathy in the setting of hyperactive hospital-acquired delirium on top of suspected underlying dementia and cognitive dysfunction due to remote history of alcohol abuse. However, according to daughter, she does not have significant baseline functional disability. I will continue to address her medical conditions, and continue to address delirium with as needed lorazepam, as needed morphine, Seroquel, and as needed haloperidol. I will continue her home melatonin and citalopram. I have discussed with the nurse about taking the Colmen[place] catheter out, and keeping her off restraints as future anticipated discharge plan. 3. Episodes of regular supraventricular tachycardia, requiring diltiazem drip in intensive care unit, currently in acceptable range. Continue oral diltiazem. 4. Nutrition. Advance the patient's diet to gastrointestinal soft. Continue physical therapy. 5. Other issues. Her hypernatremia, hyperchloremia, and acute kidney injury during hospital admission have resolved. 6. Disposition. I am trying the patient without restraints today, and see how she does. If she is okay, then my eventual plan is to send her back to custodial in the next 24 to 48 hours, where she is coming from. I called the patient's daughter, informed her about the patient's clinical condition, and answered all of her questions satisfactorily. cc: Raji Greenwood MD [facility]
[2019-02-04] MEDS: LOVENOX SUBQ SCH (13:36)
[2019-02-04] MEDS: MORPHINE IV PRN (15:50)
[2019-02-04] MEDS: ROCEPHIN 1 GM in NS 50 ML IV SCH (16:56)
[2019-02-04] MEDS: MELATONIN PO SCH (22:53)
[2019-02-05] MEDS: CARDIZEM NG SCH ×4 (02:25→21:36)
[2019-02-05] MEDS: HUMALOG SUBQ SCH ×4 (02:33→21:38)
[2019-02-05] MEDS: ATROVENT NEB INH SCH ×6 (03:33→23:35)
[2019-02-05] MEDS: PRILOSEC NG SCH ×2 (05:34→06:07)
[2019-02-05] MEDS: MORPHINE IV PRN ×3 (05:40→23:04)
[2019-02-05 05:41] LABS: HEMATOCRIT 26.1 % (37.0-47.0); HEMOGLOBIN 7.9 g/dL (12.0-16.0); MCH 30.7 PG (27-31); MCHC 30.3 g/dL (33-37); MCV 101.6 FL (81-99); MPV 10.2 FL (7.4-10.4); RBC 2.57 XMIL (4.2-5.4); RDW 13.9 % (11.5-14.5); WBC 12.07 X1000 (4.8-10.8)
[2019-02-05 06:01] LABS: ALB/GLOB RATIO 1.1; ALBUMIN 2.8 g/dL (3.5-5.0); CALCIUM 8.4 mg/dL (8.8-10.2); POTASSIUM 3.9 mmol/L (3.5-5.1); TOTAL BILIRUBIN 0.44 mg/dL (0.20-1.00); TOTAL PROTEIN 5.3 g/dL (6.3-8.3)
[2019-02-05] MEDS: MIRALAX NG SCH (08:24)
[2019-02-05] MEDS: LEXAPRO PO SCH (08:24)
[2019-02-05] MEDS: DEPAKOTE SPRINKLE NG SCH ×2 (08:24→21:36)
[2019-02-05] MEDS: LOVENOX SUBQ SCH (13:28)
--- NOTE | 2019-02-05 15:36 | PROGRESS NOTE ---
DATE: 02/05/2019 SUBJECTIVE: Today Ms. Nuñez refers to be doing a whole lot better. She said her breathing has significantly improved. OBJECTIVE: Current vitals: Blood pressure is 105/53, pulse of 93, respiration is 16, temperature 97.3 degrees. The patient was saturating 98% on room air. General: On general exam, Ms. Nuñez is a 78-year-old female. She is in bed, no distress. HEENT: Mucosa is pink and moist. Anicteric. Acyanotic. Neck: Neck is supple. Chest: Air entry is bilaterally reduced. There are a few crackles in the posterior lung hussein. Cardiovascular: Regular rate and rhythm. No murmurs, no rubs, no gallops. GI: Abdomen is soft, nontender. Bowel sounds present. Extremities: No pedal edema. There is a PICC line on the left upper extremity. LABORATORY DATA: WBC is 12.07, hemoglobin is 7.9, platelet count of 243. Chemistry is also reviewed, unremarkable. Patient is slightly alkalotic. IMAGING STUDIES: No imaging studies today. CURRENT MEDICATIONS: Have all been reviewed. She is still on ceftriaxone 1 g, which last day is today. ASSESSMENT: 1. Acute hypoxemic respiratory failure, improved. 2. Acute on chronic hypercarbic respiratory failure. 3. Chronic obstructive pulmonary disease exacerbation. 4. Acute encephalopathy, improved. 5. Recurrent episode of supraventricular tachycardia, controlled on oral Cardizem. PLAN: So, in general, I think Ms. Nuñez seems to be doing a whole lot better. Mentation has significantly improved. There is a plan for discharge first thing in the morning if she remains 24 hours in no restraints. cc: Allan Rodriguez MD
[2019-02-05] MEDS: ROCEPHIN 1 GM in NS 50 ML IV SCH (17:22)
[2019-02-05] MEDS: SEROQUEL NG SCH (21:37)
[2019-02-05] MEDS: ATIVAN NG SCH (21:37)
[2019-02-05] MEDS: MELATONIN PO SCH (21:37)
[2019-02-06] MEDS: CARDIZEM NG SCH ×2 (02:12→09:04)
[2019-02-06] MEDS: HUMALOG SUBQ SCH ×2 (02:12→09:06)
[2019-02-06] MEDS: ATROVENT NEB INH SCH ×3 (03:17→11:46)
[2019-02-06] MEDS: MORPHINE IV PRN (03:48)
[2019-02-06] MEDS: PRILOSEC NG SCH ×2 (05:38→06:10)
[2019-02-06 05:48] LABS: HEMATOCRIT 22.7 % (37.0-47.0); MCH 31.4 PG (27-31); MCHC 30.8 g/dL (33-37); MCV 101.8 FL (81-99); RBC 2.23 XMIL (4.2-5.4); RDW 14.1 % (11.5-14.5); WBC 9.69 X1000 (4.8-10.8)
[2019-02-06 06:34] LABS: ALB/GLOB RATIO 1.1; ALBUMIN 2.9 g/dL (3.5-5.0); CALCIUM 8.8 mg/dL (8.8-10.2); CREATININE 1.2 mg/dL (0.5-0.9); POTASSIUM 3.6 mmol/L (3.5-5.1); TOTAL BILIRUBIN 0.29 mg/dL (0.20-1.00); TOTAL PROTEIN 5.5 g/dL (6.3-8.3)
[2019-02-06 08:43] LABS: IRON SATURATION 13 %; TIBC 186 ug/dL; TOTAL IRON 24 ug/dL (49-151); UNBOUND IRON 162 ug/dL (112-346)
[2019-02-06] MEDS: DEPAKOTE SPRINKLE NG SCH (09:04)
[2019-02-06] MEDS: MIRALAX NG SCH (09:04)
[2019-02-06] MEDS: LEXAPRO PO SCH (09:04)
[2019-02-06 12:11] VITALS: BP 107/59
--- NOTE | 2019-02-06 13:36 | DISCHARGE SUMMARY ---
ADMISSION DATE: 01/23/2019 DISCHARGE DATE: 02/06/2019 ADMITTING DIAGNOSES: 1. Acute respiratory failure with hypoxemic and hypercarbic respiratory failure. 2. Leukocytosis. 3. Developing pneumonia per chest x-ray results yesterday. 4. Acute on chronic obstructive pulmonary disease exacerbation. 5. Acute kidney injury. 6. Sepsis. DISCHARGE DIAGNOSES: 1. Acute hypoxemic respiratory failure, improved. 2. Acute on chronic hypercarbic respiratory failure. 3. Chronic obstructive pulmonary disease exacerbation. 4. Acute encephalopathy, improved. 5. Recurrent episode of supraventricular tachycardia, controlled by oral Cardizem. 6. Acute superficial venous thrombosis of the right basilic vein of medial right arm, but no deep venous thrombosis. CONSULTATIONS: 1. Dr. Knapp. 2. Dr. Engel. 3. Palliative Care. 4. PICC line placement consult. SURGERIES AND PROCEDURE: Just PICC line placement on 02/04/2019. HOSPITAL COURSE: On 01/23/2019, Ms. Tanvi Nuñez, a 78-year-old female, presented to [facility] through EMS from [facility]. Her O2 saturation apparently was low at the detention. She was put on BiPAP and CPAP but was lethargic en route. On arrival, she had O2 saturation of 64% and was placed on BiPAP. She was unable to recover and had to be intubated. Workup revealed decreased atelectasis in the left base compared to the prior. She had a chest x-ray on 01/22/2019 apparently at the detention that may have shown developing pneumonia. Her white count was 19,000. Her ABGs showed respiratory acidosis. She was admitted to the ICU. Pulmonary was consulted, and Cardiology was consulted. She was started on Rocephin and azithromycin. She was extubated on 01/25/2019 to BiPAP which she remained on and was decreased eventually to Venturi mask, and then on 02/02/2019, she went to nasal cannula. Cardiology had been consulted on 01/27/2019 due to the SVT she had. Switched her from IV Cardizem to p.o. They stopped the beta blockers. They continued her losartan/hydrochlorothiazide and added some p.r.n. hydralazine to keep the systolic under 160. She had a venous ultrasound on 01/27/2019 which did show an acute superficial venous thrombosis of the right basilic vein in the medial right arm, no DVT. Apparently she stayed pretty agitated while she was on the BiPAP, and heart rate would jump up to 160. She was given medication of morphine and Ativan. Even though she was extubated, she was continued with the NG tube which she received some of her medications. She was kept on nebulizers and steroids and antibiotics. On 02/02/2019, she was much more alert, she would follow some simple commands but was in restraints. Once she pulled her own NG tube out, she was able to start taking medications, so it was reintroduced, and then she was advanced on her diet, and that was on 02/03/2019. She seemed a whole lot better. Her neurological status had improved. Her breathing had improved. She was deemed appropriate for discharge back to [facility]. DISCHARGE VITAL SIGNS: Temperature is 98.2, heart rate 108, respiratory rate 19, blood pressure 107/59, O2 saturation is 96% on 4 L. DISCHARGE LAB DATA: White blood cells 9000, hemoglobin 7, hematocrit 22, platelet count 274. Sodium is 142, potassium 3.6, BUN is 20, creatinine 1.2, glucose 146, calcium 8.8. Iron is 24, total iron binding capacity is 186, saturation 13, unsaturated 162, ferritin 148. Bilirubin is 0.29, AST is 23, ALT is 26, albumin 2.9. Vitamin B12 is 1055, folate is over 40. PERTINENT IMAGING: Chest x-ray on admission showed decreased atelectasis of the left base, recurrent small left pleural effusion. Then there was a repeat chest x-ray after endotracheal tube was placed. She had a venous study on 01/27/2019 which showed acute superficial venous thrombosis of the right basilic vein, medial right arm, she was placed on low dose Lovenox for that while she was here. There were no DVTs. Her last chest x-ray was on 02/04/2019 which showed improvement and that the left PICC was in place. EKG on admission with normal sinus rhythm, rate 78, QTC of 449. She had SVT. EKG on 01/27/2019 showed a rate of 192. On 01/30/2019, rate was 127 and was sinus tachycardia. The last EKG was on 02/03/2019, and it was sinus tachycardia, rate 117. DISCHARGE MEDICATIONS: 1. Melatonin 10 mg p.o. nightly. 2. Aspirin 81 mg p.o. daily. 3. Azelastine 137 mcg 2 sprays intranasally twice a day. 4. Breo Ellipta 1 puff daily. 5. Colace 200 mg p.o. daily. 6. Folic acid 1 mg p.o. daily. 7. Neurontin 300 mg p.o. t.i.d. 8. Inderal 160 mg p.o. twice daily. 9. Omeprazole 40 mg p.o. daily. 10.Prednisone 10 mg p.o. daily. 11.Zyrtec 10 mg p.o. daily. 12.Ativan 1 mg p.o. nightly at bedtime. 13.Seroquel 25 mg p.o. nightly at bedtime. 14.Ativan 1 mg p.o. twice daily p.r.n. 15.Depakote sprinkle 125 twice daily. 16.Lexapro 20 mg p.o. daily. 17.MiraLAX 17 g daily. 18.Prilosec 40 mg daily. DISCHARGE DIET: GI soft diet with Ensure 3 times a day. DISCHARGE ACTIVITY: She was with physical therapy here, so as tolerated. DISCHARGE INSTRUCTIONS: If symptoms return or worsen, please seek medical advice and return to the emergency department. DISCHARGE FOLLOWUP: Dr. Gustavo Bull DISCHARGE DISPOSITION: [facility]. Dictated by CARLY Price for Allan Rodriguez MD cc: CARLY Price MD I have seen and examined Ms Nuñez today. Physical exams unchanged and her vitals stable. She is currently asymptomatic. Mentation has improved. She is stable for discharge. I have reviewed and reconciled her home medications. I agree with the above discharge summary. MTDD
== END 2019-02-06 14:06 | DRG 871 ==
LOC: SUPCPDRO → ED 15:06 → SUATTDRO 17:59 → ICU 17:59 → 3S 02-03 04:21
PROVIDERS: ATTEND Internal Medicine
CPT/HCPCS: 31500; 36569; 51702; 71010; 71045; 74000; 74018; 80048; 80053; 81001; 82550; 82607; 82728; 82746; 82805; 82948; 83540; 83550; 83605; 83735; 83880; 84100; 84134; 84439; 84443; 84484; 85025; 85027; 85610; 85730; 87040; 87070; 87205; 89220; 93005; 93010; 93970; 94003; 94640; 94660; 94761; 96365; 96366; 96367; 96375; 97162; 97530; 99285; A9270; C9113; J0330; J0360; J0456; J0696; J1160; J1630; J1650; J1800; J1815; J1940; J2060; J2270; J2920; J3486; J7030; J7050; J7070; J7506; J7512; S0164; XXXXX